=== PATIENT | male | born 1965 | race Caucasian/White ===

== ENCOUNTER 2020-09-09 10:32 | Emergency (ER) | payer OTHER, SELFPAY ==
[2020-09-09 10:51] VITALS: BP 109/38; PULSE 87; RESP 18; TEMP 35.9; O2SAT 95; BMI 51.7
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
[2020-09-09] MEDS: Amoxicillin 500 MG CAPSULE PO (11:10)
== END 2020-09-09 11:14 | disposition home or self-care (01) ==
PROVIDERS: Emergency Provider Emergency Medicine; PCP Internal Medicine Endocrinology, Diabetes & Metabolism
DX: K12.2 Cellulitis and abscess of mouth (principal); K02.9 Dental caries, unspecified
CPT/HCPCS: 99283

== ENCOUNTER 2020-10-18 16:19 | Emergency (ER) | payer OTHER, SELFPAY ==
[2020-10-18 16:27] VITALS: BP 147/71; BP 168/90; PULSE 66; PULSE 72; RESP 20; TEMP 36.9; O2SAT 96; O2SAT 98; BMI 54.8
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
[2020-10-18 16:42] LABS: Glucose, Whole Blood 227 mg/dL (60-115)
[2020-10-18] MEDS: 0.9 % Sodium Chloride 1,000 ML 999 ML IVCONT ×2 (16:54→18:00)
[2020-10-18] MEDS: Insulin Regular, Human 100 UNIT/ML 3 ML VIAL SUBCUT (16:54)
[2020-10-18 17:05] LABS: MANUAL DIFF FLAG NO
[2020-10-18 17:06] LABS: Basophils Absolute Auto 0.1 X10*3/uL (0.0-0.2); Basophils Percent Auto 0.6 % (0-2); Eosinophils Absolute Auto 0.2 X10*3/uL (0.0-0.4); Hematocrit 37.4 % (42-52); Hemoglobin 12.6 g/dl (14.0-18.0); Imm Gran Abs Auto 0.05 X10*3/uL (0.00-0.03); Imm Gran Pct Auto 0.5 % (0.0-0.4); Lymphocytes Percent Auto 18.9 % (20-40); Mean Corpuscular HGB Conc 33.7 g/dl (31.0-36.0); Mean Corpuscular Hemoglobin 29.4 pg (27.0-33.0); Mean Corpuscular Volume 87.4 fL (80-98); Mean Platelet Volume 9.3 fL (9.4-12.4); Monocytes Absolute Auto 0.7 X10*3/uL (0.1-1.2); Monocytes Percent Auto 6.9 % (2-11); Neutrophils Absolute Auto 7.5 X10*3/uL (2.0-8.3); Neutrophils Percent Auto 71.1 % (45-73); Platelet Count 294 X10*3/uL (160-400); Red Blood Count 4.28 X10*6/uL (4.60-5.80); Red Cell Distribution Width 12.9 % (11.0-16.0); White Blood Count 10.5 X10*3/uL (4.8-10.8)
[2020-10-18 17:31] LABS: Anion Gap 14 (12-20); Blood Urea Nitrogen 14 mg/dL (9-16); Calcium 9.2 mg/dL (8.4-10.2); Carbon Dioxide 29 mmol/L (22-29); Chloride 98 mmol/L (96-108); Creatinine Clr Calc Pharmacy 173.7; Estimated Glomerular Filt Rate > 60; Glucose Random 227 mg/dL (60-115); Potassium 4.5 mmol/l (3.3-5.1); Sodium 136 mmol/L (135-145)
[2020-10-18 17:35] LABS: Troponin-I High Sensitivity < 3.5 ng/L (<3.5-35.0)
[2020-10-18 18:00] VITALS: BP 123/81; PULSE 83; RESP 16; TEMP 36.7; O2SAT 99
--- NOTE | 2020-10-18 19:12 | PC.NURSE ---
PT REPORTS FEELING SIGNIFICANTLY BETTER. GIVEN ICE PACKS FOR COOLING AND COMFORT. DENIES CP, SOB. PT A&OX3, AMBULATING INDEPENDENTLY WITH NO ISSUE TO RESTROOM. STATES HAVING MISPLACED HIS PHONE WITH EMS, [facility] CONTACTED, EXPECTING CALL BACK FROM THEM.
[2020-10-18 19:38] LABS: Glucose, Whole Blood 241 mg/dL (60-115)
== END 2020-10-18 19:35 | disposition home or self-care (01) ==
PROVIDERS: Emergency Provider Emergency Medicine
DX: E11.65 Type 2 diabetes mellitus with hyperglycemia (principal); R42 Dizziness and giddiness; F41.0 Panic disorder [episodic paroxysmal anxiety]; Z79.899 Other long term (current) drug therapy
CPT/HCPCS: 36415; 80048; 82947; 84484; 85025; 96360; 99284

== ENCOUNTER 2021-10-11 09:53 | Emergency (ER) | payer OTHER, SELFPAY ==
[2021-10-11 09:56] VITALS: BP 146/69; PULSE 89; RESP 18; TEMP 37.5; O2SAT 96; BMI 57.6
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
== END 2021-10-11 10:52 | disposition home or self-care (01) ==
PROVIDERS: Emergency Provider Emergency Medicine; PCP Nurse Practitioner Family
DX: B37.42 Candidal balanitis (principal); Z79.899 Other long term (current) drug therapy; Z79.82 Long term (current) use of aspirin
CPT/HCPCS: 99283

== ENCOUNTER 2022-11-20 20:45 | Inpatient (IN) | payer OTHER, SELFPAY ==
--- NOTE | ~2022-11-20 | XR_ITS ---
EXAMINATION: XR knee RT 2V, XR knee LT 2V CLINICAL INFORMATION: Reason for Exam fall -knee pain COMPARISON: None available at the time of this dictation. TECHNIQUE: Frontal lateral view right and left knee. FINDINGS: BONES: No fracture or dislocation is present. JOINTS: Narrowing of joint spaces and developed osteophytes from the edges of articular surfaces suggest degenerative osteoarthritis. 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 No significant knee joint effusion.
--- NOTE | ~2022-11-20 | XR_ITS ---
EXAMINATION: XR knee RT 2V, XR knee LT 2V CLINICAL INFORMATION: Reason for Exam fall -knee pain COMPARISON: None available at the time of this dictation. TECHNIQUE: Frontal lateral view right and left knee. FINDINGS: BONES: No fracture or dislocation is present. JOINTS: Narrowing of joint spaces and developed osteophytes from the edges of articular surfaces suggest degenerative osteoarthritis. SOFT TISSUE: Normal XR/XR knee RT 2V IMPRESSION: 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 No significant knee joint effusion.
--- NOTE | ~2022-11-20 | XR_ITS ---
EXAMINATION: XR SKULL CLINICAL INFORMATION: fall /unable to do ct head COMPARISON: None TECHNIQUE: 2 views of the skull were obtained. FINDINGS: No acute fractures are identified. Paranasal sinuses appear clear. Orbits appear intact. Calvarium appears intact. XR/XR skull <4V IMPRESSION: No acute fractures are identified.
[2022-11-20 20:52] VITALS: BMI 46.6
[2022-11-20 20:57] VITALS: BP 121/80; PULSE 117; RESP 23; TEMP 531.8; TEMP 989.3; O2SAT 96
[2022-11-20 21:04] VITALS: BP 160/81; PULSE 87; RESP 22; TEMP 37.2; O2SAT 96
[2022-11-20 21:23] VITALS: BP 143/51; PULSE 87; RESP 15; TEMP 36.5; O2SAT 97
--- NOTE | 2022-11-20 21:58 | ED_ITS ---
HPI - Abdominal Pain General Chief Complaint: Abdominal Pain Stated Complaint: Abd Pain Time Seen by Provider: 11/20/22 21:53 Source: patient Mode of arrival: ambulatory Limitations: no limitations History of Present Illness HPI narrative: Patient 460 lb obese patient with history of sleep apnea hypertension diabetes been having right-sided abdominal pain with chills no fever no nausea no vomiting patient was seen at [facility] yesterday CT scan of abdomen done and labs were done and discharged on some antibiotics patient unable to fill the antibiotics comes here for further management Related Data Home Medications Medication Instructions Recorded Confirmed acetaminophen 650 mg tablet 650 mg PO Q4H PRN Pain 11/21/22 11/21/22 bupropion HCl 150 mg tablet,12 hr 150 mg PO BID 11/21/22 11/21/22 sustained-release (Wellbutrin SR) cyanocobalamin (vitamin B-12) 250 200 mcg PO DAILY 11/21/22 11/21/22 mcg tablet dicyclomine 20 mg tablet 20 mg PO BID 11/21/22 11/21/22 fluoxetine 60 mg tablet 60 mg PO DAILY 11/21/22 11/21/22 gabapentin 300 mg capsule 300 mg PO BID 11/21/22 11/21/22 insulin aspart (niacinamide) 10 unit subcut QAM 11/21/22 11/21/22 (U-100) 100 unit/mL subcutaneous solution insulin aspart (niacinamide) 25 unit subcut DAILY@1700 11/21/22 11/21/22 (U-100) 100 unit/mL subcutaneous solution insulin glargine 100 unit/mL 45 unit subcut DAILY 11/21/22 11/21/22 subcutaneous cartridge loratadine 10 mg tablet 10 mg PO DAILY 11/21/22 11/21/22 losartan 50 mg tablet 50 mg PO DAILY 11/21/22 11/21/22 metoprolol tartrate 50 mg tablet 50 mg PO BID 11/21/22 11/21/22 multivitamin with minerals 1 tab PO DAILY 11/21/22 11/21/22 omega-3 fatty acids 500 mg capsule 1,000 mg PO DAILY 11/21/22 11/21/22 omeprazole 40 mg capsule,delayed 40 mg PO DAILY 11/21/22 11/21/22 release oxybutynin chloride 5 mg tablet 15 mg PO BID 11/21/22 11/21/22 oxycodone-acetaminophen 5 mg-325 2 tab PO BID PRN Pain 11/21/22 11/21/22 mg tablet psyllium 2 tsp PO BID 11/21/22 11/21/22 quetiapine 25 mg tablet 12.5 mg PO BEDTIME 11/21/22 11/21/22 quetiapine 25 mg tablet 25 mg PO QAM 11/21/22 11/21/22 rosuvastatin 40 mg tablet 40 mg PO DAILY 11/21/22 11/21/22 sildenafil 100 mg tablet 100 mg PO DAILY PRN Sexual Activity 11/21/22 11/21/22 terazosin 2 mg capsule 4 mg PO DAILY 11/21/22 11/21/22 Allergies Allergy/AdvReac Type Severity Reaction Status Date / Time strawberry [STRAWBERRY] Allergy Severe ANAPHYLAXIS Verified 09/09/20 10:53 aspirin [ASPIRIN] Allergy Unknown SIBLINGS Verified 09/09/20 10:53 WITH BLOOD DISORDER atorvastatin [ATORVASTATIN] Allergy Unknown RASH, Verified 09/09/20 10:53 SWELLING fenofibrate [FENOFIBRATE] Allergy Unknown RASH, Verified 09/09/20 10:53 SWELLING lisinopril [LISINOPRIL] Allergy Unknown RASH,SWELLI Verified 09/09/20 10:53 NG niacin Allergy Unknown RASH,SWELLI Verified 09/09/20 10:53 [From NIASPAN NG EXTENDED-RELEASE] [place] (Diagnostic) Allergy Unknown Unknown Uncoded 09/09/20 10:53 Review of Systems Review of Systems Yes all other systems are reviewed and are negative PMFSH Past Medical History Medical History Diabetes [place] War syndrome Prostate cancer PTSD (post-traumatic stress disorder) Social History Social History Advance Directives: No Advance Directives Information Provided: Yes Physical Exam ED Vital Signs: Vital Signs - 24 hr 11/20/22 20:57 11/20/22 21:04 11/20/22 21:23 Temperature 989.3 F H 98.9 F 97.7 F Pulse Rate 117 H 87 87 Respiratory Rate 23 H 22 H 15 Blood Pressure 121/80 160/81 H 143/51 H Pulse Oximetry 96 96 97 Oxygen Delivery Method Room Air Nasal Cannula Nasal Cannula Oxygen Flow Rate 3 2 11/21/22 01:53 Temperature 98.2 F Pulse Rate 93 Respiratory Rate 18 Blood Pressure 166/66 H Pulse Oximetry 95 Oxygen Delivery Method Room Air Oxygen Flow Rate BMI result Body Mass Index 46.6 Appearance: Alert. Oriented X3. No acute distress. Morbidly obese Eyes: PERRLA, No Nystagmus ENT: Pharynx normal. Oral Mucosa moist Neck: Normal inspection. Neck supple. CVS: Normal heart rate and rhythm. Pulses normal. Respiratory: No respiratory distress. Equal air entry bilateral, no wheezing/r ales/rhonchi Abdomen: Soft mild discomfort right upper abdomen Bowel sounds are present, no mass palpable, no CVA tenderness Skin: Skin warm and dry. Small 2 x 2 cm lesion left gluteal area healing wound? Staph Extremities: No lower extremity edema. No calf tenderness Neuro: Oriented X 3. No motor deficit. Medical Decision Making Medical Decision Making [facility] Narrative: Patient morbidly obese unable to take care of himself requesting placement/extra help at home. Patient's son unable to take care of will get case management involvement Lab Data [facility] Lab Attestation statement: I reviewed the patient's lab results. 11/20/22 23:18 11/20/22 23:18 Labs: Lab Results 11/20/22 11/20/22 11/20/22 Range/Units 23:18 23:18 23:18 WBC 14.4 H (4.8-10.8) X10*3/uL RBC 3.86 L (4.60-5.80) X10*6/uL Hgb 11.3 L (14.0-18.0) g/dl Hct 32.9 L (42.0-52.0) % MCV 85.2 (80.0-98.0) fL MCH 29.3 (27.0-33.0) pg MCHC 34.3 (31.0-36.0) g/dl RDW 13.3 (11.0-16.0) % Plt Count 236 (160-400) X10*3/uL MPV 9.4 (9.4-12.4) fL Immature Gran % (Auto) 0.8 H (0.0-0.4) % Neut % (Auto) 86.3 H (45-73) % Lymph % (Auto) 4.7 L (20-40) % [place] % (Auto) 8.0 (2-11) % Eos % (Auto) 0.1 (0-4) % Baso % (Auto) 0.1 (0-2) % Lymph # (Auto) 0.7 L (1.2-4.9) X10*3/uL [place] # (Auto) 1.2 (0.1-1.2) X10*3/uL Eos # (Auto) 0.0 (0.0-0.4) X10*3/uL Baso # (Auto) 0.0 (0.0-0.2) X10*3/uL Abs Immat Gran (auto) 0.12 H (0.00-0.03) X10*3/uL Absolute Neuts (auto) 12.4 H (2.0-8.3) x10*3/uL Absolute Nucleated RBC 0.000 (0.0-0.012) X10*3/uL Nucleated RBC % (auto) 0.0 (0.0-0.2) /100WBC Sodium Cancelled Potassium Cancelled Chloride Cancelled Carbon Dioxide Cancelled Anion Gap Cancelled BUN Cancelled Creatinine Cancelled Estim Creat Clear Calc Cancelled Estimated GFR Cancelled Random Glucose Cancelled Lactic Acid 1.0 (0.5-2.0) mmol/L Calcium Cancelled Total Bilirubin Cancelled AST Cancelled ALT Cancelled Alkaline Phosphatase Cancelled Total Protein Cancelled Albumin Cancelled Lipase Cancelled Urine Color Urine Appearance Urine pH (5.0-9.0) Ur Specific [place] (1.005-1.025) Urine Protein (Neg-Trace) mg/dL Urine Glucose (UA) (Negative) mg/dL Urine Ketones (Negative) mg/dL Urine Blood (Negative) Urine Nitrite (Negative) Ur Leukocyte Esterase (Negative) Urine RBC (0-2) /HPF Urine WBC (0-5) /HPF Ur Squamous Epith Cells (0-2) /HPF Urine Bacteria (None Seen) Hyaline Casts (0-2) /LPF COVID-19 (NEFTALI) (Negative) COVID-19 Clin Com 11/20/22 11/21/22 Range/Units 23:18 01:50 WBC (4.8-10.8) X10*3/uL RBC (4.60-5.80) X10*6/uL Hgb (14.0-18.0) g/dl Hct (42.0-52.0) % MCV (80.0-98.0) fL MCH (27.0-33.0) pg MCHC (31.0-36.0) g/dl RDW (11.0-16.0) % Plt Count (160-400) X10*3/uL MPV (9.4-12.4) fL Immature Gran % (Auto) (0.0-0.4) % Neut % (Auto) (45-73) % Lymph % (Auto) (20-40) % [place] % (Auto) (2-11) % Eos % (Auto) (0-4) % Baso % (Auto) (0-2) % Lymph # (Auto) (1.2-4.9) X10*3/uL [place] # (Auto) (0.1-1.2) X10*3/uL Eos # (Auto) (0.0-0.4) X10*3/uL Baso # (Auto) (0.0-0.2) X10*3/uL Abs Immat Gran (auto) (0.00-0.03) X10*3/uL Absolute Neuts (auto) (2.0-8.3) x10*3/uL Absolute Nucleated RBC (0.0-0.012) X10*3/uL Nucleated RBC % (auto) (0.0-0.2) /100WBC Sodium Potassium Chloride Carbon Dioxide Anion Gap BUN Creatinine Estim Creat Clear Calc Estimated GFR Random Glucose Lactic Acid (0.5-2.0) mmol/L Calcium Total Bilirubin AST ALT Alkaline Phosphatase Total Protein Albumin Lipase Urine Color Yellow Urine Appearance Clear Urine pH 6.5 (5.0-9.0) Ur Specific [place] >= 1.030 H (1.005-1.025) Urine Protein 300 (3+) H (Neg-Trace) mg/dL Urine Glucose (UA) >=1000 H (Negative) mg/dL Urine Ketones 80 (Negative) mg/dL Urine Blood Moderate (2+) H (Negative) Urine Nitrite Negative (Negative) Ur Leukocyte Esterase Negative (Negative) Urine RBC 0-2 (0-2) /HPF Urine WBC 0-5 (0-5) /HPF Ur Squamous Epith Cells 0-2 (0-2) /HPF Urine Bacteria None Seen (None Seen) Hyaline Casts 0-2 (0-2) /LPF COVID-19 (NEFTALI) Negative (Negative) COVID-19 Clin Com See Note External Record Review External record reviewed: Outside ED record Patient discharged from [facility] at 04:35 today was seen for the back pain and right- sided flank pain CT scan of abdomen was negative for acute pathology, normal chemistry blood glucose of 393 WBC count 13.8 hemoglobin 10.9 platelet count 245 K urine was negative patient discharged on cephalexin for possible cellulitis of the skin Medications Administered Discontinued Medications Generic Name Dose Route Start Last Admin Trade Name Freq PRN Reason Stop Dose Admin Cephalexin HCl 500 mg 11/20/22 23:18 11/21/22 00:10 Cephalexin 500 Mg Capsule PO 11/20/22 23:19 500 mg ONCE ONE Administration Doxycycline Monohydrate 100 mg 11/20/22 23:18 11/21/22 00:10 Doxycycline Monohydrate 100 Mg Capsule PO 11/20/22 23:19 100 mg ONCE ONE Administration Oxycodone HCl 10 mg 11/20/22 22:38 11/21/22 00:09 Oxycodone Hcl Immed Release 5 Mg Tablet PO 11/20/22 22:39 10 mg ONCE ONE Administration Oxycodone HCl 10 mg 11/21/22 03:39 11/21/22 03:47 Oxycodone Hcl Immed Release 5 Mg Tablet PO 11/21/22 03:40 10 mg ONCE ONE Administration Discharge Plan Discharge Clinical Impression: Infected lesion of skin, Morbidly obese Patient Disposition: Still a Patient Prescriptions: No Action quetiapine 25 mg Tablet 25 mg PO QAM quetiapine 25 mg Tablet 12.5 mg PO BEDTIME bupropion HCl [Wellbutrin SR] 150 mg Tablet Sustained-Release 12 Hr 150 mg PO BID acetaminophen 650 mg Tablet 650 mg PO Q4H PRN (Reason: Pain) oxycodone-acetaminophen 5-325 mg Tablet 2 tab PO BID PRN (Reason: Pain) dicyclomine 20 mg Tablet 20 mg PO BID metoprolol tartrate 50 mg Tablet 50 mg PO BID gabapentin 300 mg Capsule 300 mg PO BID loratadine 10 mg Tablet 10 mg PO DAILY fluoxetine 60 mg Tablet 60 mg PO DAILY losartan 50 mg Tablet 50 mg PO DAILY cyanocobalamin (vitamin B-12) 250 mcg Tablet 200 mcg PO DAILY omeprazole 40 mg Capsule,Delayed Release(Dr/Ec) 40 mg PO DAILY sildenafil 100 mg Tablet 100 mg PO DAILY PRN (Reason: Sexual Activity) Rx Instructions: administer 30 minutes to 4 hours before activity psyllium Powder 2 tsp PO BID Rx Instructions: mix into at least 4 oz water or juice before administering terazosin 2 mg Capsule 4 mg PO DAILY multivitamin with minerals Tablet 1 tab PO DAILY oxybutynin chloride 5 mg Tablet 15 mg PO BID rosuvastatin 40 mg Tablet 40 mg PO DAILY insulin glargine 100 unit/mL Cartridge 45 unit SUBCUT DAILY Fish Oil 500 mg Capsule 1,000 mg PO DAILY insulin aspart (niacinamide) 100 unit/mL Solution 25 unit SUBCUT DAILY@1700 insulin aspart (niacinamide) 100 unit/mL Solution 10 unit SUBCUT QAM
[2022-11-20 23:28] LABS: MANUAL DIFF FLAG NO
[2022-11-20 23:29] LABS: Basophils Percent Auto 0.1 % (0-2); Eosinophils Percent Auto 0.1 % (0-4); Hematocrit 32.9 % (42.0-52.0); Hemoglobin 11.3 g/dl (14.0-18.0); Imm Gran Abs Auto 0.12 X10*3/uL (0.00-0.03); Imm Gran Pct Auto 0.8 % (0.0-0.4); Lymphocytes Absolute Auto 0.7 X10*3/uL (1.2-4.9); Lymphocytes Percent Auto 4.7 % (20-40); Mean Corpuscular HGB Conc 34.3 g/dl (31.0-36.0); Mean Corpuscular Hemoglobin 29.3 pg (27.0-33.0); Mean Corpuscular Volume 85.2 fL (80.0-98.0); Mean Platelet Volume 9.4 fL (9.4-12.4); Monocytes Absolute Auto 1.2 X10*3/uL (0.1-1.2); Neutrophils Absolute Auto 12.4 x10*3/uL (2.0-8.3); Neutrophils Percent Auto 86.3 % (45-73); Platelet Count 236 X10*3/uL (160-400); Red Blood Count 3.86 X10*6/uL (4.60-5.80); Red Cell Distribution Width 13.3 % (11.0-16.0); White Blood Count 14.4 X10*3/uL (4.8-10.8)
[2022-11-20 23:30] LABS: Appearance Urine Clear; Color Urine Yellow; Glucose Urine UA >=1000 mg/dL (Negative); Leukocyte Esterase Urine Negative (Negative); Nitrite Urine Negative (Negative); PH 6.5 (5.0-9.0); Specific Gravity - Urine >= 1.030 (1.005-1.025); UMIC TRIGGER UACC YES; Urine Blood Moderate (2+) (Negative); Urine Ketones 80 mg/dL (Negative); Urine Protein 300 (3+) mg/dL (Neg-Trace)
[2022-11-20 23:40] LABS: Bacteria Urine None Seen (None Seen); Hyaline Casts Urine 0-2 /LPF (0-2); RBC Urine 0-2 /HPF (0-2); Squamous Epithelial Cell Urine 0-2 /HPF (0-2); WBC Urine 0-5 /HPF (0-5)
[2022-11-21] VITALS (10 sets, daily range): BP systolic 136–192; BP diastolic 54–86; PULSE 75–93; RESP 14–26; TEMP 36–36.9; O2SAT 95–98; BMI 68.0
[2022-11-21] MEDS: oxyCODONE HCl Immed Release 5 MG TABLET 10 MG PO ×3 (00:09→09:45)
[2022-11-21] MEDS: Doxycycline Monohydrate 100 MG CAPSULE PO ×2 (00:10→08:33)
[2022-11-21] MEDS: cephALEXin 500 MG CAPSULE PO ×2 (00:10→08:34)
[2022-11-21 02:18] LABS: COVID-19 Test Negative (Negative); IDNOW Serial# BCCEAD1C
[2022-11-21] MEDS: Acetaminophen 325 MG TABLET 650 MG PO (06:37)
[2022-11-21 07:43] LABS: Glucose, Whole Blood 332 mg/dL (60-115)
[2022-11-21] MEDS: Insulin Glargine,Hum.rec.anlog 100 UNIT/ML 10 ML VIAL 45 UNIT SUBCUT ×2 (08:30→22:15)
[2022-11-21] MEDS: Insulin Lispro 100 UNIT/ML 3 ML VIAL 10 UNIT SUBCUT (08:32)
[2022-11-21] MEDS: Metoprolol Tartrate 50 MG TABLET PO ×2 (08:33→22:14)
[2022-11-21] MEDS: Multivitamin TABLET 1 TAB PO (08:33)
[2022-11-21] MEDS: Loratadine 10 MG TABLET PO (08:33)
[2022-11-21] MEDS: Gabapentin 300 MG CAPSULE PO ×2 (08:34→22:13)
[2022-11-21] MEDS: QUEtiapine Fumarate 25 MG TABLET 12.5 MG PO ×2 (08:34→22:14)
[2022-11-21] MEDS: Losartan Potassium 50 MG TABLET PO (08:35)
[2022-11-21] MEDS: Doxazosin Mesylate 2 MG TABLET 4 MG PO (08:35)
[2022-11-21] MEDS: Dicyclomine HCl 10 MG CAPSULE 20 MG PO ×2 (08:35→22:14)
[2022-11-21] MEDS: QUEtiapine Fumarate 25 MG TABLET PO (08:36)
[2022-11-21] MEDS: Omeprazole 40 MG CAPSULE.DR PO (08:36)
[2022-11-21] MEDS: Cyanocobalamin (Vitamin B-12) 100 MCG TABLET 200 MCG PO (08:36)
[2022-11-21] MEDS: FLUoxetine HCl 20 MG CAPSULE 60 MG PO (08:36)
[2022-11-21] MEDS: buPROPion HCl XL 300 MG TAB.ER.24H PO (08:37)
--- NOTE | 2022-11-21 08:53 | PC.NURSE ---
pt is a/o x 4 no sob/armand noted speaks in full sentences. lungs - diminished. heart sounds- regular. abd extremely obese/distended, soft and non-tender. bx + x 4 quads. no edema noted. pt aware of plan of care. physical therapy at bedside.
--- NOTE | 2022-11-21 09:49 | PC.NURSE ---
pt has 2 quarter size open areas to l side of buttocks. the upper wound appears to be healing. allevyn applied to the upper wound and xeroform and allevyn applied to the lower wound. md ames.
--- NOTE | 2022-11-21 09:49 | MHC.EDTECH ---
this pct and (elgin, pct) did a complete bed bath on this patient. PTs bed was stripped and new linen was placed,as pt was standing i applied two allevyn life patches on both wounds one on buttocks and one on lower back leg RN aware,pt was then transferred to recliner, call [place] was given, and patient was in good spirits. pt was told if he needed anything to please let us know.
[2022-11-21 12:04] LABS: Glucose, Whole Blood 265 mg/dL (60-115)
--- NOTE | 2022-11-21 12:06 | MHC.CM.ED ---
Addendum entered by Krystal Burnett 11/21/22 12:35: Received notification from Teresa GAVIN that patient will be admitted due to bacteremia. Original Note: Received case management consult overnight. Patient came to the ER due to abd pain. Work up essentially negative. Physical therapy eval completed. Short term rehab is recommended. Met with patient in regards to discharge planning. Patient lives with his son and [id number], ambulates with a walker and had no services prior to coming to the hospital. PCP verified. Patient states his son has a copy of his HCP. Patient recevied [facility] [employer]. [facility] provided to [facility]. Patient agreeable to referral being broadcasted to all facilities in the area that are contracted with the [facility]. Referral made via [facility]. Continue to monitor for d/c needs.
[2022-11-21 12:53] LABS: MANUAL DIFF FLAG NO
[2022-11-21 12:54] LABS: Basophils Percent Auto 0.1 % (0-2); Eosinophils Percent Auto 0.1 % (0-4); Hematocrit 31.2 % (42.0-52.0); Hemoglobin 10.5 g/dl (14.0-18.0); Imm Gran Abs Auto 0.12 X10*3/uL (0.00-0.03); Imm Gran Pct Auto 0.8 % (0.0-0.4); Lymphocytes Absolute Auto 0.7 X10*3/uL (1.2-4.9); Lymphocytes Percent Auto 4.7 % (20-40); Mean Corpuscular HGB Conc 33.7 g/dl (31.0-36.0); Mean Corpuscular Hemoglobin 29.1 pg (27.0-33.0); Mean Corpuscular Volume 86.4 fL (80.0-98.0); Mean Platelet Volume 9.3 fL (9.4-12.4); Monocytes Absolute Auto 1.1 X10*3/uL (0.1-1.2); Monocytes Percent Auto 7.2 % (2-11); Neutrophils Absolute Auto 13.1 x10*3/uL (2.0-8.3); Neutrophils Percent Auto 87.1 % (45-73); Platelet Count 246 X10*3/uL (160-400); Red Blood Count 3.61 X10*6/uL (4.60-5.80); Red Cell Distribution Width 13.3 % (11.0-16.0)
[2022-11-21 13:08] LABS: Lactic Acid 1.1 mmol/L (0.5-2.0)
[2022-11-21 13:12] LABS: Alanine Aminotransferase 25 U/L (0-40); Albumin Level 3.6 g/dL (3.5-5.0); Alkaline Phosphatase 94 U/L (39-117); Anion Gap 18 (12-20); Aspartate Amino Transferase 24 U/L (5-37); Bilirubin Direct < 0.2 mg/dL (0.0-0.5); Bilirubin Total 0.4 mg/dL (0.0-1.0); Blood Urea Nitrogen 16 mg/dL (9-16); Calcium 8.3 mg/dL (8.4-10.2); Carbon Dioxide 19 mmol/L (22-29); Chloride 97 mmol/L (96-108); Creatinine Clr Calc Pharmacy 157.5; Estimated Glomerular Filt Rate > 60; Glucose Random 329 mg/dL (60-115); Potassium 4.2 mmol/L (3.3-5.1); Sodium 130 mmol/L (135-145); Total Protein 6.2 g/dL (6.5-8.0)
--- NOTE | 2022-11-21 14:15 | PHA.MEDREC ---
Addendum entered by Ave Alas RPh 11/21/22 15:04: received [facility] dose are updated. patient report insulin aspart 1-4 units per blood glucose instead of what was on the list Original Note: Pharmacy Consult ? Medication Reconciliation Pharmacy has completed the medication reconciliation. Med rec compelted by RN overnight. Spoke with patient who confirm mediations he is taking the medication. Waiting for a [facility] from the [facility] to confirm medications are being picked and are accurate doses. Ave Alas, PharmD
[2022-11-21] MEDS: cefTRIAXone sodium 2 GM in 0.9 % Sodium Chloride 50 ML IV (14:40)
--- NOTE | 2022-11-21 15:30 | PM.IMHP ---
History of Present Illness Date of Service: 11/21/22 Attending physician on admission: Adilia Hardy Chief Complaint: upper buttock area wounds , ?uti, fall ,bacteremia HPI: 57-year-old male morbidly obese, hypertension, insulin-dependent , prostate cancer status post surgery in 2018 (? Laser prostatectomy) and radiation, urinary incontinence from 3-4 years, sleep apnea noncompliant with CPAP, ex-smoker quit in 2018:Patient came to the hospital because unable to take care at home, he said few days back he had some flank pain and urinary frequency for which she went to [facility]-he was discharged with the p.o. antibiotic for possible UTI, subsequently went home as per the patient he was excessively sleepy(was taking oxycodone also) and urinating on himself, in bathroom also fall x1 -son was nearby, patient said he did not hit his head and did not lose his consciousness. For above reasons EMS was called and patient was brought to the hospital. Patient says that he has urinary frequency but unclear since he is having urinary incontinence for 3-4 years. He said he had a left flank pain initially. On review also had some small upper buttock area ulcers/wounds. has some mild soarness of right knee area with pain. Patient was in the hospital since last night and plan was for placement but then his blood culture came back positive and subsequently requested admission for that. Currently patient denies any flank pain or any headache or blurry vision or new complaint of chest pain or shortness of breath or abdominal pain or fever or chills or nausea or vomitin or cough. Denies any weakness or numbness. Labs reviewed: WBC count is 15, has mild hyperglycemia, BMP seems fine except mild hyponatremia. In ED patient received vancomycin considering blood culture positive, also received ceftriaxone for possible question of UTI. Review of Systems Review of Systems: As above. [facility] Medical History (Updated 11/21/22 @ 16:28 by Adilia Hardy MD) Diabetes [place] War syndrome Prostate cancer PTSD (post-traumatic stress disorder) Pertinent family history: s/p cabg Surgical History (Updated 11/21/22 @ 16:04 by Adilia Hardy MD) History of back surgery History of prostate surgery Social History Alcohol intake: never Smoked in Last 30 Days: No Use of substances other than those prescribed or required for medical reasons: No Advance Directives: No Advance Directives Information Provided: Yes Meds Allergies Allergy/AdvReac Type Severity Reaction Status Date / Time strawberry [STRAWBERRY] Allergy Severe ANAPHYLAXIS Verified 09/09/20 10:53 aspirin [ASPIRIN] Allergy Unknown SIBLINGS Verified 09/09/20 10:53 WITH BLOOD DISORDER atorvastatin [ATORVASTATIN] Allergy Unknown RASH, Verified 09/09/20 10:53 SWELLING fenofibrate [FENOFIBRATE] Allergy Unknown RASH, Verified 09/09/20 10:53 SWELLING lisinopril [LISINOPRIL] Allergy Unknown RASH,SWELLI Verified 09/09/20 10:53 NG niacin Allergy Unknown RASH,SWELLI Verified 09/09/20 10:53 [From NIASPAN NG EXTENDED-RELEASE] Cade (Diagnostic) Allergy Unknown Unknown Uncoded 09/09/20 10:53 Active Medications: Current Medications Acetaminophen (Acetaminophen 325 Mg Tablet) 975 mg PO Q8H [facility] Bupropion HCl (Bupropion Hcl Xl 300 Mg Tab.Er.24h) 300 mg PO DAILY [facility] Last Admin: 11/21/22 08:37 Dose: 300 mg Cyanocobalamin (Cyanocobalamin (Vitamin B-12) 100 Mcg Tablet) 200 mcg PO DAILY [facility] Last Admin: 11/21/22 08:36 Dose: 200 mcg Cyanocobalamin (Cyanocobalamin (Vitamin B-12) 1,000 Mcg Tablet) 2,000 mcg PO DAILY [facility] Cyclobenzaprine HCl (Cyclobenzaprine Hcl 10 Mg Tablet) 10 mg PO DAILY PRN PRN Reason: Muscle Spasm Dicyclomine HCl (Dicyclomine Hcl 10 Mg Capsule) 20 mg PO BID [facility] Last Admin: 11/21/22 08:35 Dose: 20 mg Doxazosin Mesylate (Doxazosin Mesylate 2 Mg Tablet) 4 mg PO DAILY [facility] Last Admin: 11/21/22 08:35 Dose: 4 mg Enoxaparin Sodium (Enoxaparin Sodium 40 Mg/0.4 Ml Syringe) 40 mg SUBCUT Q24H [facility] Fluoxetine HCl (Fluoxetine Hcl 20 Mg Capsule) 60 mg PO DAILY [facility] Last Admin: 11/21/22 08:36 Dose: 60 mg Gabapentin (Gabapentin 300 Mg Capsule) 300 mg PO BID [facility] Last Admin: 11/21/22 08:34 Dose: 300 mg Vancomycin HCl (Vancomycin/Ns) 2,000 mg in 520 mls @ 260 mls/hr IV ONCE ONE Stop: 11/21/22 16:29 Insulin Glargine (Insulin Glargine,Hum.Rec.Anlog 100 Unit/Ml 10 Ml Vial) 45 unit SUBCUT DAILY [facility] Last Admin: 11/21/22 08:30 Dose: 45 unit Insulin Human Lispro (Insulin Lispro 100 Unit/Ml 3 Ml Vial) 10 unit SUBCUT DAILY [facility] Last Admin: 11/21/22 08:32 Dose: 10 unit Insulin Human Lispro (Insulin Lispro 100 Unit/Ml 3 Ml Vial) 25 unit SUBCUT DAILY@1700 [facility] Loratadine (Loratadine 10 Mg Tablet) 10 mg PO DAILY [facility] Last Admin: 11/21/22 08:33 Dose: 10 mg Losartan Potassium (Losartan Potassium 50 Mg Tablet) 50 mg PO DAILY [facility]; Protocol Last Admin: 11/21/22 08:35 Dose: 50 mg Metoprolol Tartrate (Metoprolol Tartrate 50 Mg Tablet) 50 mg PO BID [facility]; Protocol Last Admin: 11/21/22 08:33 Dose: 50 mg Multivitamins/Vitamin C (Multivitamin Tablet) 1 tab PO DAILY [facility] Last Admin: 11/21/22 08:33 Dose: 1 tab Non-Formulary Medication ([place]-3 Fatty Acids) 1,000 mg PO DAILY [facility] Non-Formulary Medication (Oxybutynin Chloride) 15 mg PO BID [facility] Non-Formulary Medication (Rosuvastatin) 40 mg PO DAILY [facility] Non-Formulary Medication (Meloxicam) 15 mg PO DAILY [facility] Non-Formulary Medication (Sildenafil) 100 mg PO DAILY PRN PRN Reason: Sexual Activity Omeprazole (Omeprazole 40 Mg Capsule.Dr) 40 mg PO DAILY [facility] Last Admin: 11/21/22 08:36 Dose: 40 mg Oxybutynin Chloride (Oxybutynin Chloride Er 5 Mg Tab.Er.24) 15 mg PO DAILY [facility] Pharmacy Consult (Consult Rx Vancomycin Dosing) 1 each MISCELLANE DAILY PRN PRN Reason: Consult order Psyllium Hydrophilic Mucilloid (Psyllium Seed 3.4 Gm Powd.Pack) 3.4 gm PO BID [facility] Last Admin: 11/21/22 09:46 Dose: 3.4 gm Quetiapine Fumarate (Quetiapine Fumarate 25 Mg Tablet) 12.5 mg PO BEDTIME [facility] Last Admin: 11/21/22 08:34 Dose: 12.5 mg Quetiapine Fumarate (Quetiapine Fumarate 25 Mg Tablet) 25 mg PO DAILY [facility] Last Admin: 11/21/22 08:36 Dose: 25 mg Sodium Chloride (0.9 % Sodium Chloride Flush 3 Ml Syringe) 3 ml IVFLUSH QSHIFT [facility] Tamsulosin HCl (Tamsulosin Hcl 0.4 Mg Capsule) 0.8 mg PO BEDTIME [facility] Home Medications Medication Instructions Recorded Confirmed Last Taken Type acetaminophen 650 mg tablet 650 mg PO Q4H PRN Pain 11/21/22 11/21/22 Unknown History bupropion HCl 150 mg tablet,12 hr 150 mg PO BID 11/21/22 11/21/22 Unknown History sustained-release (Wellbutrin SR) cyanocobalamin (vitamin B-12) 500 2,000 mcg PO DAILY 11/21/22 11/21/22 Unknown History mcg tablet cyclobenzaprine 10 mg tablet 10 mg PO DAILY PRN Muscle Spasm 11/21/22 11/21/22 Unknown History dicyclomine 20 mg tablet 20 mg PO BID 11/21/22 11/21/22 Unknown History fluoxetine 60 mg tablet 60 mg PO DAILY 11/21/22 11/21/22 Unknown History gabapentin 300 mg capsule 300 mg PO BID 11/21/22 11/21/22 Unknown History insulin aspart (niacinamide) 1 - 4 sliding scale dose subcut 11/21/22 11/21/22 Unknown History (U-100) 100 unit/mL subcutaneous TIDAC solution insulin glargine 100 unit/mL 45 unit subcut DAILY 11/21/22 11/21/22 Unknown History subcutaneous cartridge loratadine 10 mg tablet 10 mg PO DAILY 11/21/22 11/21/22 Unknown History losartan 50 mg tablet 50 mg PO DAILY 11/21/22 11/21/22 Unknown History meloxicam 15 mg tablet 15 mg PO DAILY 11/21/22 11/21/22 Unknown History metoprolol tartrate 50 mg tablet 50 mg PO BID 11/21/22 11/21/22 Unknown History multivitamin with minerals 1 tab PO DAILY 11/21/22 11/21/22 Unknown History omega-3 fatty acids 500 mg capsule 1,000 mg PO DAILY 11/21/22 11/21/22 Unknown History omeprazole 40 mg capsule,delayed 40 mg PO DAILY 11/21/22 11/21/22 Unknown History release oxybutynin chloride 15 mg 15 mg PO DAILY 11/21/22 11/21/22 Unknown History tablet,extended release 24 hr oxycodone-acetaminophen 5 mg-325 2 tab PO BID PRN Pain 11/21/22 11/21/22 Unknown History mg tablet psyllium 2 tsp PO BID 11/21/22 11/21/22 Unknown History quetiapine 25 mg tablet 12.5 mg PO BEDTIME 11/21/22 11/21/22 Unknown History quetiapine 25 mg tablet 25 mg PO QAM 11/21/22 11/21/22 Unknown History rosuvastatin 40 mg tablet 40 mg PO DAILY 11/21/22 11/21/22 Unknown History sildenafil 100 mg tablet 100 mg PO DAILY PRN Sexual Activity 11/21/22 11/21/22 Unknown History tamsulosin 0.4 mg capsule 0.8 mg PO BEDTIME 11/21/22 11/21/22 Unknown History terazosin 2 mg capsule 4 mg PO DAILY 11/21/22 11/21/22 Unknown History Physical Exam Vital Signs and Narrative: Vital Signs: Last Vital Signs Temp 97.6 F 11/21/22 14:47 Pulse 82 11/21/22 14:47 Resp 14 11/21/22 14:47 BP 142/54 H 11/21/22 14:47 Pulse Ox 95 11/21/22 14:47 O2 Del Method 11/21/22 14:47 O2 Flow Rate 2 11/20/22 21:23 BMI result Body Mass Index 46.6 Appearance: Alert.? Oriented X3.? not in distress.?morbid obese. Eyes: Pupils equal, round and reactive to light.? Sclera nonicteric.? ENT: Pharynx normal.? Moist mucous membranes. cvs: rrr, [id number] , no murmur res: clear to auscultation ,no rhonchii or wheezing abd: no rebound or guarding ,nt, bs present. skin: upper buttock area smallulcers?(especiially left side). ext pulses present , no cyanosis , right knee pain. neuro: axo3 , nonfocal. Results Labs 11/21/22 12:47 11/21/22 12:47 Labs: Laboratory Results - last 24 hr 11/20/22 11/20/22 11/20/22 23:18 23:18 23:18 MCV 85.2 MCH 29.3 MCHC 34.3 RDW 13.3 Plt Count 236 MPV 9.4 Immature Gran % (Auto) 0.8 H Neut % (Auto) 86.3 H Lymph % (Auto) 4.7 L [place] % (Auto) 8.0 Eos % (Auto) 0.1 Baso % (Auto) 0.1 Lymph # (Auto) 0.7 L [place] # (Auto) 1.2 Eos # (Auto) 0.0 Baso # (Auto) 0.0 Abs Immat Gran (auto) 0.12 H Absolute Neuts (auto) 12.4 H Absolute Nucleated RBC 0.000 Nucleated RBC % (auto) 0.0 Anion Gap Cancelled Estim Creat Clear Calc Cancelled Estimated GFR Cancelled POC Glucose Random Glucose Cancelled Lactic Acid 1.0 Calcium Cancelled Total Bilirubin Cancelled Direct Bilirubin AST Cancelled ALT Cancelled Alkaline Phosphatase Cancelled Total Protein Cancelled Albumin Cancelled Lipase Cancelled Urine Color Urine Appearance Urine pH Ur Specific [place] Urine Protein Urine Glucose (UA) Urine Ketones Urine Blood Urine Nitrite Ur Leukocyte Esterase Urine RBC Urine WBC Ur Squamous Epith Cells Urine Bacteria Hyaline Casts COVID-19 ([facility]I) COVID-19 Clin Com 11/20/22 11/21/22 11/21/22 23:18 01:50 07:36 MCV MCH MCHC RDW Plt Count MPV Immature Gran % (Auto) Neut % (Auto) Lymph % (Auto) [place] % (Auto) Eos % (Auto) Baso % (Auto) Lymph # (Auto) Noble # (Auto) Eos # (Auto) Baso # (Auto) Abs Immat Gran (auto) Absolute Neuts (auto) Absolute Nucleated RBC Nucleated RBC % (auto) Anion Gap Estim Creat Clear Calc Estimated GFR POC Glucose 332 H Random Glucose Lactic Acid Calcium Total Bilirubin Direct Bilirubin AST ALT Alkaline Phosphatase Total Protein Albumin Lipase Urine Color Yellow Urine Appearance Clear Urine pH 6.5 Ur Specific [place] >= 1.030 H Urine Protein 300 (3+) H Urine Glucose (UA) >=1000 H Urine Ketones 80 Urine Blood Moderate (2+) H Urine Nitrite Negative Ur Leukocyte Esterase Negative Urine RBC 0-2 Urine WBC 0-5 Ur Squamous Epith Cells 0-2 Urine Bacteria None Seen Hyaline Casts 0-2 COVID-19 ([facility]FTALI) Negative COVID-19 Clin Com See Note 11/21/22 11/21/22 11/21/22 12:00 12:47 12:47 MCV 86.4 MCH 29.1 MCHC 33.7 RDW 13.3 Plt Count 246 MPV 9.3 L Immature Gran % (Auto) 0.8 H Neut % (Auto) 87.1 H Lymph % (Auto) 4.7 L [place] % (Auto) 7.2 Eos % (Auto) 0.1 Baso % (Auto) 0.1 Lymph # (Auto) 0.7 L [place] # (Auto) 1.1 Eos # (Auto) 0.0 Baso # (Auto) 0.0 Abs Immat Gran (auto) 0.12 H Absolute Neuts (auto) 13.1 H Absolute Nucleated RBC 0.000 Nucleated RBC % (auto) 0.0 Anion Gap 18 Estim Creat Clear Calc 157.5 Estimated GFR > 60 POC Glucose 265 H Random Glucose 329 H Lactic Acid Calcium 8.3 L D Total Bilirubin 0.4 Direct Bilirubin < 0.2 AST 24 ALT 25 Alkaline Phosphatase 94 Total Protein 6.2 L Albumin 3.6 Lipase Urine Color Urine Appearance Urine pH Ur Specific [place] Urine Protein Urine Glucose (UA) Urine Ketones Urine Blood Urine Nitrite Ur Leukocyte Esterase Urine RBC Urine WBC Ur Squamous Epith Cells Urine Bacteria Hyaline Casts COVID-19 ([facility]FTALI) COVID-19 Clin Com 11/21/22 12:47 MCV MCH MCHC RDW Plt Count MPV Immature Gran % (Auto) Neut % (Auto) Lymph % (Auto) [place] % (Auto) Eos % (Auto) Baso % (Auto) Lymph # (Auto) Noble # (Auto) Eos # (Auto) Baso # (Auto) Abs Immat Gran (auto) Absolute Neuts (auto) Absolute Nucleated RBC Nucleated RBC % (auto) Anion Gap Estim Creat Clear Calc Estimated GFR POC Glucose Random Glucose Lactic Acid 1.1 Calcium Total Bilirubin Direct Bilirubin AST ALT Alkaline Phosphatase Total Protein Albumin Lipase Urine Color Urine Appearance Urine pH Ur Specific [place] Urine Protein Urine Glucose (UA) Urine Ketones Urine Blood Urine Nitrite Ur Leukocyte Esterase Urine RBC Urine WBC Ur Squamous Epith Cells Urine Bacteria Hyaline Casts COVID-19 ([facility]FT[facility]I) COVID-19 Clin Com Assessment and Plan (1) Hyperglycemia: Status: Acute (2) Hyponatremia: Status: Acute (3) Infected lesion of skin: Status: Acute (4) Morbidly obese: Status: Acute (5) Bacteremia: Status: Acute (6) Pressure ulcer, back, lower: Status: Acute (7) Toxic metabolic encephalopathy: Status: Acute (8) Fall: Status: Acute Plan 57-year-old male morbidly obese, hypertension, insulin-dependent , prostate cancer status post surgery in 2018 (? Laser prostatectomy) and radiation, urinary incontinence from 3-4 years, sleep apnea noncompliant with CPAP, ex-smoker:had fall , back ulcers ,bacteremia,?uti. sepsis: ? Due to skin and skin structure infection/small wound on the back In addition patient was to be having UTI recently-sent off with Keflex from [facility] which he did not yet started. Has leukocytosis of 15, no fever lactic acid normal, has bacteremia Gram-positive. No fever or tachycardia or tachypnea Sepsis exam completed Will continue vancomycin and ceftriaxone Vanco trough id eval. Diabetes with hyperglycemia: Diabetic diet Will check hemoglobin A1c Continue Lantus and we will adjust fingerstick with sliding scale. Hyponatremia: Possibly related to decreased p.o. intake and when corrected for hyperglycemia-sodium is around 133 range. Sleep apnea: Patient is noncompliant with CPAP. HLP: Continue statin. htn: Continue home regimen losartan, metoprolol. History of prostate cancer,? Urinary retention versus incontinence: Continue home Flomax, terazosin. Anxiety: Continue home anxiety regimen . Fall:mechnical, Patient sent a he did not hit his head, no loss of consciousness Has some right knee soreness, added x-ray of bilateral knees. also added head ct to complete workup. Toxic metabolic encephalopathy: Probably the symptoms patient's is dosing including excessive sleepiness, and urinating but all places: Probably related to excessive oxycodone use, decreased p.o. intake. does does not seem to be related to sepsis. Currently does not seem to be confused. ch pains : hold oxycodone , continue gabapentine ,flexril, added tylenol and lidociane patch. morbid obesity: Encouraged to lose weight. back skin ulcers : turn frequent,wound care ,oob, ambulate. Generalize weakness and functional decline family unable to take care: Added PT evaluation. DVT prophylaxis:: With subQ Lovenox In patient need: Sepsis/bacteremia need IV antibiotics-also blood culture pending in addition ,need dm with hyperglycemia monitoring and management, also possible need placement as above. Time Spent With Patient Time: Total time managing care of this patient today ____ minutes. Quality Stroke Does the patient have a stroke diagnosis?: No VTE Prior VTE?: No VTE Risk Level:: Medical - moderate - high VTE Device Contraindication: N/A - Device Ordered VTE Drug Contraindication: N/A - Med Ordered
[2022-11-21] MEDS: Acetaminophen 325 MG TABLET 975 MG PO ×2 (16:22→23:51)
[2022-11-21] MEDS: Enoxaparin Sodium 40 MG/0.4 ML SYRINGE SUBCUT (16:22)
[2022-11-21] MEDS: Lidocaine 4 % Patch ADH..PATCH 1 PATCH TRANSDERMA (16:23)
--- NOTE | 2022-11-21 16:30 | PHA.PROG ---
Admission Date/Time: November 21, 2022 15:24 Indication: Bacteremia Weight in k.418 kg Adjusted body weight in Kg: [place] body weight in Kg: Obesity Dosing Indication % IBW: Serum Creatinine - Last 168 Hours 11/20/22 11/21/22 23:18 12:47 Creatinine Cancelled 0.77 Estimated CrCl and GFR - Last 168 Hours 11/20/22 11/21/22 23:18 12:47 Estim Creat Clear Calc Cancelled 157.5 Estimated GFR Cancelled > 60 Vancomycin Loading Dose: 2000mg x 1 Current Vancomycin Dosing Regimen: 750mg Q8H Vancomycin Monitoring using AUC goal of 400 - 600 range with trough as surrogate marker: 500mg/L Date and Time for next Vancomycin Level to be drawn: 11/22/22 @1400 Pharmacist Comments on Vancomycin Plan: Using obesity model. Went with Q8H dosing to get an appropriately timed trough. Predicted Trough of 15.8mg/L. Will continue to monitor renal function/watch for dose dumping Vancomycin dosing will take advantage of [employer] as a clinical decision support tool that uses Bayesian modeling to calculate individual patient's pharmacokinetic parameters and forecast the patient's drug concentration time course with the target goal AUC 24 range of 400 - 600 mg/L/hr.
[2022-11-21 16:56] LABS: Estimated Average Glucose 212 mg/dL
[2022-11-21 17:53] LABS: Glucose, Whole Blood 349 mg/dL (60-115)
[2022-11-21] MEDS: Insulin Lispro 100 UNIT/ML 3 ML VIAL SUBCUT ×2 (18:11→22:15)
[2022-11-21] MEDS: Morphine Sulfate 4 MG/ML CARTRIDGE IVPUSH (18:39)
[2022-11-21 20:50] LABS: Glucose, Whole Blood 373 mg/dL (60-115)
[2022-11-21] MEDS: Tamsulosin HCL 0.4 MG CAPSULE 0.8 MG PO (22:13)
[2022-11-21] MEDS: NaPROXEN 500 MG TABLET PO (22:13)
[2022-11-21] MEDS: 0.9 % Sodium Chloride Flush 3 ML SYRINGE IVFLUSH (22:14)
[2022-11-22] MEDS: vancomycin HCL 750 MG in 0.9 % Sodium Chloride 250 ML 265 MG IV ×2 (00:01→09:25)
[2022-11-22 00:46] VITALS: PULSE 89; RESP 20; O2SAT 92
[2022-11-22 04:00] VITALS: RESP 18
[2022-11-22 06:53] LABS: Hematocrit 31.5 % (42.0-52.0); Mean Corpuscular HGB Conc 34.9 g/dl (31.0-36.0); Mean Corpuscular Hemoglobin 28.9 pg (27.0-33.0); Mean Corpuscular Volume 82.9 fL (80.0-98.0); Mean Platelet Volume 9.2 fL (9.4-12.4); Platelet Count 297 X10*3/uL (160-400); Red Cell Distribution Width 13.3 % (11.0-16.0); White Blood Count 15.9 X10*3/uL (4.8-10.8)
[2022-11-22 07:34] LABS: Anion Gap 19 (12-20); Blood Urea Nitrogen 17 mg/dL (9-16); Calcium 8.5 mg/dL (8.4-10.2); Carbon Dioxide 18 mmol/L (22-29); Chloride 101 mmol/L (96-108); Creatinine Clr Calc Pharmacy 212.8; Estimated Glomerular Filt Rate > 60; Glucose Random 253 mg/dL (60-115); Sodium 134 mmol/L (135-145)
[2022-11-22 07:39] LABS: Creatinine Clr Calc Pharmacy 215.8; Estimated Glomerular Filt Rate > 60
[2022-11-22 07:40] VITALS: BP 180/79; PULSE 74; RESP 24; TEMP 35.8; O2SAT 97
[2022-11-22 08:06] LABS: Glucose, Whole Blood 277 mg/dL (60-115)
[2022-11-22] MEDS: Insulin Lispro 100 UNIT/ML 3 ML VIAL SUBCUT ×4 (08:52→21:05)
[2022-11-22] MEDS: Insulin Glargine,Hum.rec.anlog 100 UNIT/ML 10 ML VIAL 45 UNIT SUBCUT ×2 (08:52→21:06)
[2022-11-22] MEDS: Lidocaine 4 % Patch ADH..PATCH 1 PATCH TRANSDERMA (08:54)
[2022-11-22] MEDS: FLUoxetine HCl 20 MG CAPSULE 60 MG PO (08:56)
[2022-11-22] MEDS: Cyanocobalamin (Vitamin B-12) 100 MCG TABLET 200 MCG PO (08:57)
[2022-11-22] MEDS: Dicyclomine HCl 10 MG CAPSULE 20 MG PO ×2 (08:57→21:04)
[2022-11-22] MEDS: oxyBUTYnin chloride ER 5 MG TAB.ER.24 15 MG PO ×2 (08:58→21:04)
[2022-11-22] MEDS: Cyanocobalamin (Vitamin B-12) 1,000 MCG TABLET 2000 MCG PO (08:59)
[2022-11-22] MEDS: Acetaminophen 325 MG TABLET 975 MG PO ×2 (08:59→15:14)
[2022-11-22] MEDS: Doxazosin Mesylate 2 MG TABLET 4 MG PO (09:00)
[2022-11-22] MEDS: NaPROXEN 500 MG TABLET PO ×2 (09:01→21:04)
[2022-11-22] MEDS: buPROPion HCl XL 300 MG TAB.ER.24H PO (09:01)
[2022-11-22] MEDS: Losartan Potassium 50 MG TABLET PO (09:01)
[2022-11-22] MEDS: Multivitamin TABLET 1 TAB PO (09:01)
[2022-11-22] MEDS: Loratadine 10 MG TABLET PO (09:02)
[2022-11-22] MEDS: Gabapentin 300 MG CAPSULE PO ×2 (09:02→21:04)
[2022-11-22] MEDS: Metoprolol Tartrate 50 MG TABLET PO ×2 (09:03→21:05)
[2022-11-22] MEDS: Omeprazole 40 MG CAPSULE.DR PO (09:03)
[2022-11-22] MEDS: 0.9 % Sodium Chloride Flush 3 ML SYRINGE IVFLUSH ×2 (09:25→21:07)
[2022-11-22] MEDS: QUEtiapine Fumarate 25 MG TABLET PO (09:28)
--- NOTE | 2022-11-22 10:11 | HO.PM.IMPN ---
Subjective Subjective Date of Service: 11/22/22 Interval History: bacteremia ,uncontrolled htn Review of Systems denies any chest pain or sob or nausea or vomitin Physical Exam Vital Signs: Vital Signs: Last Vital Signs Temp 96.5 F L 11/22/22 07:40 Pulse 74 11/22/22 07:40 Resp 24 H 11/22/22 07:40 BP 180/79 H 11/22/22 07:40 Pulse Ox 97 11/22/22 07:40 O2 Del Method 11/22/22 07:40 O2 Flow Rate 2 11/20/22 21:23 BMI result Body Mass Index 68.0 Appearance: Alert.? Oriented X3.? not in distress.?morbid obese. cvs: rrr, [id number] , no murmur res: clear to auscultation ,no rhonchii or wheezing abd: no rebound or guarding ,nt, bs present. skin: upper buttock area small ulcers?(especiially left side). ext pulses present , no cyanosis , right knee pain. neuro: axo3 , nonfocal. Objective Data Active Medications Acetaminophen (Acetaminophen 325 Mg Tablet) 975 mg PO Q8H [facility] Last Admin: 11/22/22 08:59 Dose: 975 mg Documented By: ELSA Amlodipine Besylate (Amlodipine Besylate 2.5 Mg Tablet) 2.5 mg PO DAILY [facility]; Protocol Bupropion HCl (Bupropion Hcl Xl 300 Mg Tab.Er.24h) 300 mg PO DAILY [facility] Last Admin: 11/22/22 09:01 Dose: 300 mg Documented By: ELSA Cyanocobalamin (Cyanocobalamin (Vitamin B-12) 100 Mcg Tablet) 200 mcg PO DAILY [facility] Last Admin: 11/22/22 08:57 Dose: 200 mcg Documented By: ELSA Cyanocobalamin (Cyanocobalamin (Vitamin B-12) 1,000 Mcg Tablet) 2,000 mcg PO DAILY [facility] Last Admin: 11/22/22 08:59 Dose: 2,000 mcg Documented By: ELSA Cyclobenzaprine HCl (Cyclobenzaprine Hcl 10 Mg Tablet) 10 mg PO DAILY PRN PRN Reason: Muscle Spasm Dextrose (Dextrose 50 % 25 Gm/50 Ml Syringe) 25 gm IVPUSH Q15M PRN; Protocol PRN Reason: per Hypoglycemia Standing Ord. Dicyclomine HCl (Dicyclomine Hcl 10 Mg Capsule) 20 mg PO BID [facility] Last Admin: 11/22/22 08:57 Dose: 20 mg Documented By: ELSA Doxazosin Mesylate (Doxazosin Mesylate 2 Mg Tablet) 4 mg PO DAILY [facility] Last Admin: 11/22/22 09:00 Dose: 4 mg Documented By: ELSA Enoxaparin Sodium (Enoxaparin Sodium 40 Mg/0.4 Ml Syringe) 40 mg SUBCUT Q24H [facility] Last Admin: 11/21/22 16:22 Dose: 40 mg Documented By: FAVIAN Fluoxetine HCl (Fluoxetine Hcl 20 Mg Capsule) 60 mg PO DAILY [facility] Last Admin: 11/22/22 08:56 Dose: 60 mg Documented By: ELSA Gabapentin (Gabapentin 300 Mg Capsule) 300 mg PO BID [facility] Last Admin: 11/22/22 09:02 Dose: 300 mg Documented By: ELSA Glucose (Glucose Gel 15 Gm Gel..Gram.) 15 gm PO Q15M PRN; Protocol PRN Reason: per Hypoglycemia Standing Ord. Vancomycin HCl 750 mg/ Sodium (Chloride) 265 mls @ 265 mls/hr IV Q8H [facility] Last Admin: 11/22/22 09:25 Dose: 265 mls/hr Documented By: ELSA Insulin Glargine (Insulin Glargine,Hum.Rec.Anlog 100 Unit/Ml 10 Ml Vial) 45 unit SUBCUT DAILY [facility] Last Admin: 11/22/22 08:52 Dose: 45 unit Documented By: ELSA Insulin Human Lispro (Insulin Lispro 100 Unit/Ml 3 Ml Vial) 0 unit SUBCUT QIDACHS [facility]; Protocol Last Admin: 11/22/22 08:52 Dose: 1 unit Documented By: ELSA Lidocaine (Lidocaine 4 % Patch Adh..Patch) 1 patch TRANSDERMA DAILY [facility]; Protocol Last Admin: 11/22/22 08:54 Dose: 1 patch Documented By: ELSA Loratadine (Loratadine 10 Mg Tablet) 10 mg PO DAILY [facility] Last Admin: 11/22/22 09:02 Dose: 10 mg Documented By: ELSA Losartan Potassium (Losartan Potassium 50 Mg Tablet) 50 mg PO DAILY [facility]; Protocol Last Admin: 11/22/22 09:01 Dose: 50 mg Documented By: ELSA Metoprolol Tartrate (Metoprolol Tartrate 50 Mg Tablet) 50 mg PO BID [facility]; Protocol Last Admin: 11/22/22 09:03 Dose: 50 mg Documented By: ELSA Multivitamins/Vitamin C (Multivitamin Tablet) 1 tab PO DAILY [facility] Last Admin: 11/22/22 09:01 Dose: 1 tab Documented By: ELSA Naproxen (Naproxen 500 Mg Tablet) 500 mg PO BID [facility] Last Admin: 11/22/22 09:01 Dose: 500 mg Documented By: ELSA Non-Formulary Medication (Rosuvastatin) 40 mg PO DAILY [facility] Omeprazole (Omeprazole 40 Mg Capsule.Dr) 40 mg PO DAILY [facility] Last Admin: 11/22/22 09:03 Dose: 40 mg Documented By: ELSA Oxybutynin Chloride (Oxybutynin Chloride Er 5 Mg Tab.Er.24) 15 mg PO BID [facility] Oxybutynin Chloride (Oxybutynin Chloride Er 5 Mg Tab.Er.24) 15 mg PO DAILY [facility] Last Admin: 11/22/22 08:58 Dose: 15 mg Documented By: ELSA Pharmacy Consult (Consult Rx Vancomycin Dosing) 1 each MISCELLANE DAILY PRN PRN Reason: Consult order Psyllium Hydrophilic Mucilloid (Psyllium Seed 3.4 Gm Powd.Pack) 3.4 gm PO BID [facility] Last Admin: 11/22/22 09:15 Dose: 3.4 gm Documented By: ELSA Quetiapine Fumarate (Quetiapine Fumarate 25 Mg Tablet) 12.5 mg PO BEDTIME [facility] Last Admin: 11/21/22 22:14 Dose: 12.5 mg Documented By: DEANNA Quetiapine Fumarate (Quetiapine Fumarate 25 Mg Tablet) 25 mg PO DAILY [facility] Last Admin: 11/22/22 09:28 Dose: 25 mg Documented By: ELSA Sodium Chloride (0.9 % Sodium Chloride Flush 3 Ml Syringe) 3 ml IVFLUSH QSHIFT [facility] Last Admin: 11/22/22 09:25 Dose: 3 ml Documented By: ELSA Tamsulosin HCl (Tamsulosin Hcl 0.4 Mg Capsule) 0.8 mg PO BEDTIME [facility] Last Admin: 11/21/22 22:13 Dose: 0.8 mg Documented By: DEANNA Labs 11/22/22 06:16 11/22/22 06:16 Labs: Laboratory Results - last 24 hr 11/21/22 11/21/22 11/21/22 12:00 12:47 12:47 MCV 86.4 MCH 29.1 MCHC 33.7 RDW 13.3 Plt Count 246 MPV 9.3 L Immature Gran % (Auto) 0.8 H Neut % (Auto) 87.1 H Lymph % (Auto) 4.7 L [place] % (Auto) 7.2 Eos % (Auto) 0.1 Baso % (Auto) 0.1 Lymph # (Auto) 0.7 L [place] # (Auto) 1.1 Eos # (Auto) 0.0 Baso # (Auto) 0.0 Abs Immat Gran (auto) 0.12 H Absolute Neuts (auto) 13.1 H Absolute Nucleated RBC 0.000 Nucleated RBC % (auto) 0.0 Anion Gap 18 Estim Creat Clear Calc 157.5 Estimated GFR > 60 POC Glucose 265 H Random Glucose 329 H Estimat Average Glucose Hemoglobin A1c % Lactic Acid Calcium 8.3 L D Total Bilirubin 0.4 Direct Bilirubin < 0.2 AST 24 ALT 25 Alkaline Phosphatase 94 Total Protein 6.2 L Albumin 3.6 11/21/22 11/21/22 11/21/22 12:47 12:47 17:49 MCV MCH MCHC RDW Plt Count MPV Immature Gran % (Auto) Neut % (Auto) Lymph % (Auto) [place] % (Auto) Eos % (Auto) Baso % (Auto) Lymph # (Auto) [place] # (Auto) Eos # (Auto) Baso # (Auto) Abs Immat Gran (auto) Absolute Neuts (auto) Absolute Nucleated RBC Nucleated RBC % (auto) Anion Gap Estim Creat Clear Calc Estimated GFR POC Glucose 349 H Random Glucose Estimat Average Glucose 212 Hemoglobin A1c % 9.0 Lactic Acid 1.1 Calcium Total Bilirubin Direct Bilirubin AST ALT Alkaline Phosphatase Total Protein Albumin 11/21/22 11/22/22 11/22/22 20:47 06:16 06:16 MCV 82.9 MCH 28.9 MCHC 34.9 RDW 13.3 Plt Count 297 MPV 9.2 L Immature Gran % (Auto) Neut % (Auto) Lymph % (Auto) [place] % (Auto) Eos % (Auto) Baso % (Auto) Lymph # (Auto) [place] # (Auto) Eos # (Auto) Baso # (Auto) Abs Immat Gran (auto) Absolute Neuts (auto) Absolute Nucleated RBC 0.000 Nucleated RBC % (auto) 0.0 Anion Gap Estim Creat Clear Calc 215.8 Estimated GFR > 60 POC Glucose 373 H* Random Glucose Estimat Average Glucose Hemoglobin A1c % Lactic Acid Calcium Total Bilirubin Direct Bilirubin AST ALT Alkaline Phosphatase Total Protein Albumin 11/22/22 11/22/22 06:16 07:44 MCV MCH MCHC RDW Plt Count MPV Immature Gran % (Auto) Neut % (Auto) Lymph % (Auto) [place] % (Auto) Eos % (Auto) Baso % (Auto) Lymph # (Auto) [place] # (Auto) Eos # (Auto) Baso # (Auto) Abs Immat Gran (auto) Absolute Neuts (auto) Absolute Nucleated RBC Nucleated RBC % (auto) Anion Gap 19 Estim Creat Clear Calc 212.8 Estimated GFR > 60 POC Glucose 277 H Random Glucose 253 H Estimat Average Glucose Hemoglobin A1c % Lactic Acid Calcium 8.5 Total Bilirubin Direct Bilirubin AST ALT Alkaline Phosphatase Total Protein Albumin Microbiology Microbiology Results: Microbiology 11/20/22 23:18 Blood Culture - Preliminary Blood - Venous Prelim: GPC Gram Stain only 11/20/22 23:18 Blood Culture - Preliminary Blood - Venous Prelim: GPC Gram Stain only Assessment and Plan (1) Fall: Status: Acute (2) Hyperglycemia: Status: Acute (3) Infected lesion of skin: Status: Acute (4) Bacteremia: Status: Acute Plan 57-year-old male morbidly obese, hypertension, insulin-dependent , prostate cancer status post surgery in 2018 (?? Laser prostatectomy) and radiation, urinary incontinence from 3-4 years, sleep apnea noncompliant with CPAP, ex-smoker:had fall , back ulcers ,bacteremia,?uti. ?sepsis: ?? Due to skin and skin structure infection/small wound on the back In addition patient was to be having UTI recently-sent off with Keflex from [employer] which he did not yet started. Has leukocytosis of 15, no fever lactic acid normal, has bacteremia [id number] positive cocci in chains .? No fever or tachycardia or tachypnea Sepsis exam completed Will continue vancomycin and ceftriaxone Vanco trough id eval. Diabetes with hyperglycemia: Diabetic diet hemoglobin A1c- 9. Continue Lantus and we will adjust fingerstick with sliding scale. Hyponatremia:?pseudohypanatremia due to hyperglycemia . ?Sleep apnea:? Patient is noncompliant with CPAP. HLP:? Continue statin. htn uncontrolled:? Continue home regimen losartan, metoprolol,added amlodipine. History of prostate cancer,?? Urinary retention versus incontinence: Continue home Flomax, terazosin. Anxiety:? Continue home anxiety regimen . Fall:mechnical,? Patient sent a he did not hit his head, no loss of consciousness Has some right knee soreness, added x-ray of bilateral knees. Patient unable to tolerate CT head does not want lies flat. Will add skull x-ray-since suspicion is low because patient says he did not hit his head when he fell. Toxic metabolic encephalopathy:? Probably the symptoms patient's is dosing including excessive sleepiness, and urinating but all places:? Probably related to excessive oxycodone use, decreased p.o. intake. does does not seem to be related to sepsis. Currently does not seem to be confused. ch pains : hold oxycodone , continue gabapentine ,flexril, added tylenol and lidociane patch. morbid obesity:? Encouraged to lose weight. back skin ulcers : turn frequent,wound care ,oob, ambulate. Generalize weakness and functional decline family unable to take care:? Added PT evaluation. DVT prophylaxis:: With subQ Lovenox In patient need:? Sepsis/bacteremia need IV antibiotics-also blood culture pending in addition ,need dm with hyperglycemia monitoring and management, Time Spent With Patient Time: Total time managing care of this patient today ____ minutes. Quality Stroke Does the patient have a stroke diagnosis?: No VTE Prior VTE?: No VTE Risk Level:: Medical - moderate - high VTE Device Contraindication: N/A - Device Ordered VTE Drug Contraindication: N/A - Med Ordered
[2022-11-22 11:31] LABS: Glucose, Whole Blood 301 mg/dL (60-115)
[2022-11-22] MEDS: amLODIPine Besylate 2.5 MG TABLET PO (12:03)
[2022-11-22] MEDS: cefTRIAXone sodium 1 GM in 0.9 % Sodium Chloride 50 ML IV (15:04)
[2022-11-22 15:09] VITALS: BP 173/89; PULSE 71; RESP 22; TEMP 36.1; O2SAT 97
[2022-11-22 15:17] LABS: Vancomycin Trough 5.1 mcg/mL (10.0-20.0)
--- NOTE | 2022-11-22 15:47 | HE.PHANOTE ---
RE: gerber Pt's weight was updated to 215kg, BMI of 68; verified with nurse Rowan. Trough will come back low due to distribution, increased dose to 1500mg Q8H due to pt size, predicted AUC 406 but trough prediction of 4.2. Level to be drawn 11/23/22 @1400. Will be monitoring for dose dumping.
[2022-11-22] MEDS: vancomycin HCL 1,500 MG in 0.9 % Sodium Chloride 500 ML 333.33 MG IV (16:01)
[2022-11-22] MEDS: Enoxaparin Sodium 40 MG/0.4 ML SYRINGE SUBCUT (16:02)
--- NOTE | 2022-11-22 16:07 | MHC.CM.PN ---
CM ATTEMPTED TO SEE PT PT SLEEPING IN CHAIR AND DOES NOT RESPOND TO SEVERAL ATTEMPTS TO WAKE HIM CM WILL REVISIT TOMORROW
[2022-11-22 17:13] LABS: Glucose, Whole Blood 317 mg/dL (60-115)
[2022-11-22 19:57] VITALS: BP 168/83; PULSE 63; RESP 18; TEMP 37.1; O2SAT 95
[2022-11-22 20:26] LABS: Glucose, Whole Blood 357 mg/dL (60-115)
[2022-11-22] MEDS: Tamsulosin HCL 0.4 MG CAPSULE 0.8 MG PO (21:03)
[2022-11-22] MEDS: QUEtiapine Fumarate 25 MG TABLET 12.5 MG PO (21:05)
[2022-11-23] MEDS: vancomycin HCL 1,500 MG in 0.9 % Sodium Chloride 500 ML 333.3 MG IV (00:06)
[2022-11-23] MEDS: Acetaminophen 325 MG TABLET 975 MG PO ×4 (00:06→23:47)
[2022-11-23 01:06] VITALS: PULSE 60; O2SAT 99
[2022-11-23 04:00] VITALS: BP 142/73; PULSE 78; RESP 20; TEMP 36; O2SAT 97
[2022-11-23 06:27] LABS: Hematocrit 31.9 % (42.0-52.0); Hemoglobin 10.8 g/dl (14.0-18.0); Mean Corpuscular HGB Conc 33.9 g/dl (31.0-36.0); Mean Corpuscular Hemoglobin 28.4 pg (27.0-33.0); Mean Corpuscular Volume 83.9 fL (80.0-98.0); Mean Platelet Volume 9.3 fL (9.4-12.4); Platelet Count 314 X10*3/uL (160-400); Red Cell Distribution Width 13.6 % (11.0-16.0); White Blood Count 12.2 X10*3/uL (4.8-10.8)
[2022-11-23 06:40] LABS: Creatinine Clr Calc Pharmacy 225.3; Estimated Glomerular Filt Rate > 60
[2022-11-23 06:54] LABS: Anion Gap 15 (12-20); Blood Urea Nitrogen 13 mg/dL (9-16); Calcium 8.3 mg/dL (8.4-10.2); Carbon Dioxide 24 mmol/L (22-29); Chloride 100 mmol/L (96-108); Creatinine Clr Calc Pharmacy 225.3; Estimated Glomerular Filt Rate > 60; Glucose Random 293 mg/dL (60-115); Potassium 3.9 mmol/L (3.3-5.1); Sodium 135 mmol/L (135-145)
[2022-11-23 07:43] VITALS: BP 170/74; PULSE 86; RESP 20; TEMP 36.5; O2SAT 97
[2022-11-23 07:52] LABS: Glucose, Whole Blood 302 mg/dL (60-115)
[2022-11-23] MEDS: Metoprolol Tartrate 50 MG TABLET PO (08:15)
[2022-11-23] MEDS: Gabapentin 300 MG CAPSULE PO ×2 (08:16→21:12)
[2022-11-23] MEDS: buPROPion HCl XL 300 MG TAB.ER.24H PO (08:16)
[2022-11-23] MEDS: NaPROXEN 500 MG TABLET PO ×2 (08:16→21:12)
[2022-11-23] MEDS: Doxazosin Mesylate 2 MG TABLET 4 MG PO (08:16)
[2022-11-23] MEDS: Loratadine 10 MG TABLET PO (08:16)
[2022-11-23] MEDS: Omeprazole 40 MG CAPSULE.DR PO (08:16)
[2022-11-23] MEDS: Dicyclomine HCl 10 MG CAPSULE 20 MG PO ×2 (08:17→21:12)
[2022-11-23] MEDS: Multivitamin TABLET 1 TAB PO (08:17)
[2022-11-23] MEDS: amLODIPine Besylate 2.5 MG TABLET PO (08:17)
[2022-11-23] MEDS: Losartan Potassium 50 MG TABLET PO (08:17)
[2022-11-23] MEDS: Cyanocobalamin (Vitamin B-12) 100 MCG TABLET 200 MCG PO (08:17)
[2022-11-23] MEDS: oxyBUTYnin chloride ER 5 MG TAB.ER.24 15 MG PO (08:18)
[2022-11-23] MEDS: FLUoxetine HCl 20 MG CAPSULE 60 MG PO (08:18)
[2022-11-23] MEDS: QUEtiapine Fumarate 25 MG TABLET PO (08:19)
[2022-11-23] MEDS: Cyclobenzaprine HCl 10 MG TABLET PO (08:19)
[2022-11-23] MEDS: Cyanocobalamin (Vitamin B-12) 1,000 MCG TABLET 2000 MCG PO (08:19)
[2022-11-23] MEDS: Insulin Lispro 100 UNIT/ML 3 ML VIAL SUBCUT ×5 (08:21→21:14)
[2022-11-23] MEDS: 0.9 % Sodium Chloride Flush 3 ML SYRINGE IVFLUSH ×3 (08:22→23:50)
[2022-11-23] MEDS: polyethylene glycoL 3350 17 GM POWD.PACK PO (10:45)
[2022-11-23] MEDS: cefTRIAXone sodium 2 GM in 0.9 % Sodium Chloride 50 ML IV (10:45)
[2022-11-23 11:30] LABS: Glucose, Whole Blood 311 mg/dL (60-115)
--- NOTE | 2022-11-23 11:45 | P.PNIM_ITS ---
Subjective Subjective Date of Service: 11/23/22 Interval History: bacteremia ,uncontrolled htn,constipation Review of Systems denies any chest pain or sob or nausea or vomitin says no bm for 2 days ,no abd pain ,passing gases Physical Exam Vital Signs: Vital Signs: Last Vital Signs Temp 97.7 F 11/23/22 07:43 Pulse 86 11/23/22 07:43 Resp 20 11/23/22 07:43 BP 170/74 H 11/23/22 07:43 Pulse Ox 97 11/23/22 07:43 O2 Del Method 11/23/22 07:43 O2 Flow Rate 2 11/22/22 15:09 BMI result Body Mass Index 68.0 Appearance: Alert.? Oriented X3.? not in distress.?morbid obese. cvs: rrr, [id number] , no murmur res: clear to auscultation ,no rhonchii or wheezing abd: no rebound or guarding ,nt, bs present. skin: upper buttock area small ulcers?(especiially left side). ext pulses present , no cyanosis , right knee pain. neuro: axo3 , nonfocal. Objective Data Active Medications Acetaminophen (Acetaminophen 325 Mg Tablet) 975 mg PO Q8H [facility] Last Admin: 11/23/22 07:03 Dose: 975 mg Documented By: DEANNA Amlodipine Besylate (Amlodipine Besylate 2.5 Mg Tablet) 2.5 mg PO DAILY [facility]; Protocol Last Admin: 11/23/22 08:17 Dose: 2.5 mg Documented By: VENECIA Bupropion HCl (Bupropion Hcl Xl 300 Mg Tab.Er.24h) 300 mg PO DAILY [facility] Last Admin: 11/23/22 08:16 Dose: 300 mg Documented By: VENECIA Cyanocobalamin (Cyanocobalamin (Vitamin B-12) 100 Mcg Tablet) 200 mcg PO DAILY [facility] Last Admin: 11/23/22 08:17 Dose: 200 mcg Documented By: VENECIA Cyanocobalamin (Cyanocobalamin (Vitamin B-12) 1,000 Mcg Tablet) 2,000 mcg PO DAILY [facility] Last Admin: 11/23/22 08:19 Dose: 2,000 mcg Documented By: VENECIA Cyclobenzaprine HCl (Cyclobenzaprine Hcl 10 Mg Tablet) 10 mg PO DAILY PRN PRN Reason: Muscle Spasm Last Admin: 11/23/22 08:19 Dose: 10 mg Documented By: VENECIA Dextrose (Dextrose 50 % 25 Gm/50 Ml Syringe) 25 gm IVPUSH Q15M PRN; Protocol PRN Reason: per Hypoglycemia Standing Ord. Dicyclomine HCl (Dicyclomine Hcl 10 Mg Capsule) 20 mg PO BID [facility] Last Admin: 11/23/22 08:17 Dose: 20 mg Documented By: VENECIA Docusate Sodium (Docusate Sodium 100 Mg Capsule) 100 mg PO BEDTIME [facility] Doxazosin Mesylate (Doxazosin Mesylate 2 Mg Tablet) 4 mg PO DAILY [facility] Last Admin: 11/23/22 08:16 Dose: 4 mg Documented By: VENECIA Enoxaparin Sodium (Enoxaparin Sodium 40 Mg/0.4 Ml Syringe) 40 mg SUBCUT Q24H [facility] Last Admin: 11/22/22 16:02 Dose: 40 mg Documented By: ELSA Fluoxetine HCl (Fluoxetine Hcl 20 Mg Capsule) 60 mg PO DAILY [facility] Last Admin: 11/23/22 08:18 Dose: 60 mg Documented By: VENECIA Gabapentin (Gabapentin 300 Mg Capsule) 300 mg PO BID [facility] Last Admin: 11/23/22 08:16 Dose: 300 mg Documented By: VENECIA Glucose (Glucose Gel 15 Gm Gel..Gram.) 15 gm PO Q15M PRN; Protocol PRN Reason: per Hypoglycemia Standing Ord. Ceftriaxone Sodium 2 gm/ (Sodium Chloride) 50 mls @ 100 mls/hr IV Q24H [facility] Last Infusion: 11/23/22 11:25 Dose: 0 mls/hr Documented By: CHRISTINA Insulin Glargine (Insulin Glargine,Hum.Rec.Anlog 100 Unit/Ml 10 Ml Vial) 45 unit SUBCUT DAILY [facility] Last Admin: 11/22/22 21:06 Dose: 45 unit Documented By: DEANNA Insulin Human Lispro (Insulin Lispro 100 Unit/Ml 3 Ml Vial) 0 unit SUBCUT QIDACHS [facility]; Protocol Last Admin: 11/23/22 08:21 Dose: 8 unit Documented By: VENECIA Lidocaine (Lidocaine 4 % Patch Adh..Patch) 1 patch TRANSDERMA DAILY [facility]; Protocol Last Admin: 11/23/22 08:26 Dose: Not Given Documented By: VENECIA Non-Admin Reason: pt refusfed Loratadine (Loratadine 10 Mg Tablet) 10 mg PO DAILY [facility] Last Admin: 11/23/22 08:16 Dose: 10 mg Documented By: VENECIA Losartan Potassium (Losartan Potassium 50 Mg Tablet) 50 mg PO DAILY [facility]; Protocol Last Admin: 11/23/22 08:17 Dose: 50 mg Documented By: VENECIA Metoprolol Tartrate (Metoprolol Tartrate 50 Mg Tablet) 50 mg PO BID [facility]; Protocol Last Admin: 11/23/22 08:15 Dose: 50 mg Documented By: VENECIA Multivitamins/Vitamin C (Multivitamin Tablet) 1 tab PO DAILY [facility] Last Admin: 11/23/22 08:17 Dose: 1 tab Documented By: VENECIA Naproxen (Naproxen 500 Mg Tablet) 500 mg PO BID [facility] Last Admin: 11/23/22 08:16 Dose: 500 mg Documented By: VENECIA Non-Formulary Medication (Rosuvastatin) 40 mg PO DAILY [facility] Omeprazole (Omeprazole 40 Mg Capsule.Dr) 40 mg PO DAILY [facility] Last Admin: 11/23/22 08:16 Dose: 40 mg Documented By: VENECIA Oxybutynin Chloride (Oxybutynin Chloride Er 5 Mg Tab.Er.24) 15 mg PO BID [facility] Last Admin: 11/23/22 10:12 Dose: Not Given Documented By: VENECIA Non-Admin Reason: per Oxybutynin Chloride (Oxybutynin Chloride Er 5 Mg Tab.Er.24) 15 mg PO DAILY [facility] Last Admin: 11/23/22 08:18 Dose: 15 mg Documented By: VENECIA Pharmacy Consult (Consult Rx Vancomycin Dosing) 1 each MISCELLANE DAILY PRN PRN Reason: Consult order Polyethylene Glycol (Polyethylene Glycol 3350 17 Gm Powd.Pack) 17 gm PO DAILY [facility] Last Admin: 11/23/22 10:45 Dose: 17 gm Documented By: VENECIA Psyllium Hydrophilic Mucilloid (Psyllium Seed 3.4 Gm Powd.Pack) 3.4 gm PO BID [facility] Last Admin: 11/23/22 08:15 Dose: 3.4 gm Documented By: VENECIA Quetiapine Fumarate (Quetiapine Fumarate 25 Mg Tablet) 12.5 mg PO BEDTIME [facility] Last Admin: 11/22/22 21:05 Dose: 12.5 mg Documented By: DEANNA Quetiapine Fumarate (Quetiapine Fumarate 25 Mg Tablet) 25 mg PO DAILY [facility] Last Admin: 11/23/22 08:19 Dose: 25 mg Documented By: VENECIA Sodium Biphosphate/Sodium Phosphate (Sodium Phosphate,Miner-Dibasic 133 Ml Enema) 133 ml [place] ONCE PRN PRN Reason: Constipation Sodium Chloride (0.9 % Sodium Chloride Flush 3 Ml Syringe) 3 ml IVFLUSH QSHIFT [facility] Last Admin: 11/23/22 08:22 Dose: 3 ml Documented By: VENECIA Tamsulosin HCl (Tamsulosin Hcl 0.4 Mg Capsule) 0.8 mg PO BEDTIME [facility] Last Admin: 11/22/22 21:03 Dose: 0.8 mg Documented By: DEANNA Labs 11/23/22 05:25 11/23/22 05:25 Labs: Laboratory Results - last 24 hr 11/22/22 11/22/22 11/22/22 14:21 16:40 20:02 MCV MCH MCHC RDW Plt Count MPV Absolute Nucleated RBC Nucleated RBC % (auto) Anion Gap Estim Creat Clear Calc Estimated GFR POC Glucose 317 H 357 H* Random Glucose Calcium Vancomycin Trough 5.1 L 11/23/22 11/23/22 11/23/22 05:25 05:25 05:25 MCV 83.9 MCH 28.4 MCHC 33.9 RDW 13.6 Plt Count 314 MPV 9.3 L Absolute Nucleated RBC 0.000 Nucleated RBC % (auto) 0.0 Anion Gap 15 Estim Creat Clear Calc 225.3 225.3 Estimated GFR > 60 > 60 POC Glucose Random Glucose 293 H Calcium 8.3 L Vancomycin Trough 11/23/22 11/23/22 07:46 11:16 MCV MCH MCHC RDW Plt Count MPV Absolute Nucleated RBC Nucleated RBC % (auto) Anion Gap Estim Creat Clear Calc Estimated GFR POC Glucose 302 H 311 H Random Glucose Calcium Vancomycin Trough Microbiology Microbiology Results: Microbiology 11/20/22 23:18 Blood Culture - Final Blood - Venous Strep agalactiae (Grp B) 11/20/22 23:18 Blood Culture - Final Blood - Venous Strep agalactiae (Grp B) 11/21/22 12:48 Blood Culture - Preliminary Blood - Venous No growth after 24 hours. 11/21/22 12:47 Blood Culture - Preliminary Blood - Venous No growth after 24 hours. Assessment and Plan (1) Hyperglycemia: Status: Acute (2) Pressure ulcer, back, lower: Status: Acute (3) Hyponatremia: Status: Acute (4) Infected lesion of skin: Status: Acute (5) Streptococcus agalactiae infection: Status: Acute (6) Bacteremia: Status: Acute (7) Constipation: Status: Acute Plan Hospital day-3 57-year-old male morbidly obese, hypertension, insulin-dependent , prostate cancer status post surgery in 2018 (?? Laser prostatectomy) and radiation, urinary incontinence from 3-4 years, sleep apnea noncompliant with CPAP, ex- smoker:had fall , back ulcers ,bacteremia,?uti. ?sepsis: ?? Due to skin and skin structure infection/small wound on the back/possible strep aglacticae bacteremia In addition patient was to be having UTI recently-sent off with Keflex from [employer] which he did not yet started. Has leukocytosis of 12.2, no fever lactic acid normal, has bacteremia -strep aglacticae-senstive to ceftriaxone , repeat blood culture -neg@24hrs .? No fever or tachycardia or tachypnea continue ceftriaxone,dc vancomycin sincestrep aglacticaex2 senstive to ceftriaxone id eval. Diabetes with hyperglycemia: Diabetic diet hemoglobin A1c- 9. adjusted lantus and fingerstick with sliding scale. Hyponatremia:?pseudohypanatremia due to hyperglycemia . ?Sleep apnea:? Patient is noncompliant with CPAP. HLP:? Continue statin. htn uncontrolled:? Continue losartan and amlodipine. changed metoprolol to coreg for better blood pressure control. History of prostate cancer,?? Urinary retention versus incontinence: Continue home Flomax, terazosin. Anxiety:? Continue home anxiety regimen . Fall:mechnical,? Patient sent a he did not hit his head, no loss of consciousness knee soarness inprovin head xray-fine knee xray -b/l arthtitis Toxic metabolic encephalopathy:? Probably the symptoms patient's is dosing including excessive sleepiness, and urinating but all places:? Probably related to excessive oxycodone use, decreased p.o. intake. does does not seem to be related to sepsis. Currently does not seem to be confused. ch pains : hold oxycodone , continue gabapentine ,flexril, added tylenol and lidociane patch. morbid obesity:? Encouraged to lose weight. back skin ulcers : turn frequent,wound care ,oob, ambulate. Generalize weakness and functional decline family unable to take care:? Added PT evaluation. Constipation: Added laxatives, enema if needed DVT prophylaxis:: With subQ Lovenox In patient need:? Sepsis/aglacticae bacteremia -need IV antibiotics-also blood culture pending in addition ,need dm with hyperglycemia monitoring and management,in addition has uncontrolled htn -needs blood pressure monitering and htn med adjustment. Time Spent With Patient Time: Total time managing care of this patient today ____ minutes. Quality Stroke Does the patient have a stroke diagnosis?: No VTE Prior VTE?: No VTE Risk Level:: Medical - moderate - high VTE Device Contraindication: N/A - Device Ordered VTE Drug Contraindication: N/A - Med Ordered
[2022-11-23] MEDS: Insulin Glargine,Hum.rec.anlog 100 UNIT/ML 10 ML VIAL SUBCUT (12:10)
--- NOTE | 2022-11-23 14:04 | MHC.CM.PN ---
CM MET WITH PT AND SON AT BEDSIDE PT LIVES WITH SON AND HIS PT IS INDEPENDENT WITH CARE HE USES A ROLLATOR PRIMARILY AND ALSO HAS A CANE PT IS SUPPOSED TO USE A CPAP, BUT ADMITS HE DOES NOT HE IS COVID VAX AND BOOSTED PCP: ELSY ALVAREZ HCP WILL BE COMPLETED, PT TO NAME HIS SON, MURTAZA, HIS AGENT [facility] DELIVERED DCP TBD PT AND SON REPORT PTS PCP WANTS HIM TO DC TO [facility] IS FIRST CHOICE
[2022-11-23] MEDS: Enoxaparin Sodium 40 MG/0.4 ML SYRINGE SUBCUT (15:09)
[2022-11-23 15:31] VITALS: BP 167/93; PULSE 91; RESP 18; TEMP 36.9; O2SAT 94
[2022-11-23 17:09] LABS: Glucose, Whole Blood 409 mg/dL (60-115)
[2022-11-23 20:00] VITALS: BP 185/88; PULSE 75; RESP 18; TEMP 36.8; O2SAT 97
[2022-11-23 20:45] LABS: Glucose, Whole Blood 378 mg/dL (60-115)
[2022-11-23] MEDS: Docusate Sodium 100 MG CAPSULE PO (21:11)
[2022-11-23] MEDS: Tamsulosin HCL 0.4 MG CAPSULE 0.8 MG PO (21:12)
[2022-11-23] MEDS: carvediloL 12.5 MG TABLET PO (21:13)
--- NOTE | 2022-11-23 23:35 | PC.RT ---
Pt refused CPAP, not able to tolerate
[2022-11-24 04:00] VITALS: BP 172/78; PULSE 78; RESP 17; TEMP 36.6; O2SAT 96
[2022-11-24 06:58] LABS: Creatinine Clr Calc Pharmacy 232.1; Estimated Glomerular Filt Rate > 60
[2022-11-24 07:23] VITALS: BP 168/74; PULSE 78; RESP 20; TEMP 36.2; O2SAT 96
[2022-11-24 07:38] LABS: Glucose, Whole Blood 281 mg/dL (60-115)
[2022-11-24] MEDS: Loratadine 10 MG TABLET PO (08:05)
[2022-11-24] MEDS: Losartan Potassium 50 MG TABLET PO (08:05)
[2022-11-24] MEDS: Omeprazole 40 MG CAPSULE.DR PO (08:05)
[2022-11-24] MEDS: Doxazosin Mesylate 2 MG TABLET 4 MG PO (08:05)
[2022-11-24] MEDS: oxyBUTYnin chloride ER 5 MG TAB.ER.24 15 MG PO (08:06)
[2022-11-24] MEDS: FLUoxetine HCl 20 MG CAPSULE 60 MG PO (08:06)
[2022-11-24] MEDS: Cyanocobalamin (Vitamin B-12) 1,000 MCG TABLET 2000 MCG PO (08:06)
[2022-11-24] MEDS: NaPROXEN 500 MG TABLET PO ×2 (08:07→21:39)
[2022-11-24] MEDS: amLODIPine Besylate 2.5 MG TABLET PO (08:07)
[2022-11-24] MEDS: carvediloL 12.5 MG TABLET PO ×2 (08:07→21:39)
[2022-11-24] MEDS: Acetaminophen 325 MG TABLET 975 MG PO ×2 (08:07→17:08)
[2022-11-24] MEDS: Gabapentin 300 MG CAPSULE PO ×2 (08:08→21:41)
[2022-11-24] MEDS: Cyanocobalamin (Vitamin B-12) 100 MCG TABLET 200 MCG PO (08:08)
[2022-11-24] MEDS: Multivitamin TABLET 1 TAB PO (08:08)
[2022-11-24] MEDS: Dicyclomine HCl 10 MG CAPSULE 20 MG PO ×2 (08:08→21:41)
[2022-11-24] MEDS: buPROPion HCl XL 300 MG TAB.ER.24H PO (08:08)
[2022-11-24] MEDS: QUEtiapine Fumarate 25 MG TABLET PO (08:09)
[2022-11-24] MEDS: Insulin Lispro 100 UNIT/ML 3 ML VIAL SUBCUT ×4 (08:10→21:41)
[2022-11-24] MEDS: polyethylene glycoL 3350 17 GM POWD.PACK PO (08:16)
[2022-11-24] MEDS: 0.9 % Sodium Chloride Flush 3 ML SYRINGE IVFLUSH ×3 (08:19→21:57)
[2022-11-24] MEDS: Insulin Glargine,Hum.rec.anlog 100 UNIT/ML 10 ML VIAL 50 UNIT SUBCUT (08:24)
--- NOTE | 2022-11-24 09:21 | P.CDIC_ITS ---
CDI Concurrent Query Documentation Clarification: PHYSICIAN'S DOCUMENTATION REQUEST Date of Query: 11/24/22920 Patient Name: Jermaine Castillo Admit Date: 11/21/22 Dear Doctor, A review of the medical record indicates additional documentation may be indicated. Please review below and update the documentation accordingly. Clinical Indicators: Risk Factors/Clinical Indicators/Treatments Wound care notes 11/21 - Pressure injury Stage 3 left lower buttock Slough, yellow Foam dressing Based on the above, could you please provide, in the Progress Notes, further information regarding the ulcer/wound: * If a pressure ulcer, please also include the stage* of the ulcer: * Stage 1 - Skin intact, non-blanchable redness * Stage 2 - Partial thickness loss of dermis, includes intact or open blister * Stage 3 - Full thickness tissue not including bone, tendon, or muscle * Stage 4 - Full thickness tissue loss, including exposed bones, tendon, or muscle * Other * Unable to determine *Source: National Pressure Ulcer Advisory Panel (NPUAP) Use of terms such as suspected, likely, concern for, or probable (associated with a specific diagnosis that is being evaluated, monitored, or treated as if it exists) are acceptable and can be coded in the inpatient setting, when documented at the time of discharge. Thank you, Monie Giron [facility], CDIS Extension: [phone] Please use your independent medical judgment in providing your response. THIS QUERY IS PART OF THE PERMANENT MEDICAL RECORD Provider Response: Other Other Diagnosis: pressure injury -stage unclear , will add wound consult
--- NOTE | 2022-11-24 09:25 | P.CDIC_ITS ---
CDI Concurrent Query Documentation Clarification: PHYSICIAN'S DOCUMENTATION REQUEST Date of Query: 11/24/22924 Patient Name: Jermaine Castillo Admit Date: 11/21/22 Dear Doctor, A review of the medical record indicates additional documentation may be indicated. Please review below and update the documentation accordingly. Clinical Indicators: Risk Factors/Clinical Indicators/Treatments Wound care notes 11/21 - Pressure injury Stage 2 left upper buttock. Dry and intact Foam dressing Based on the above, could you please provide, in the Progress Notes, further information regarding the ulcer/wound: * If a pressure ulcer, please also include the stage* of the ulcer: * Stage 1 - Skin intact, non-blanchable redness * Stage 2 - Partial thickness loss of dermis, includes intact or open blister * Stage 3 - Full thickness tissue not including bone, tendon, or muscle Other * Unable to determine *Source: National Pressure Ulcer Advisory Panel (NPUAP) Use of terms such as suspected, likely, concern for, or probable (associated with a specific diagnosis that is being evaluated, monitored, or treated as if it exists) are acceptable and can be coded in the inpatient setting, when documented at the time of discharge. Thank you, Monie Giron [facility], CDIS Extension: [phone] Please use your independent medical judgment in providing your response. THIS QUERY IS PART OF THE PERMANENT MEDICAL RECORD Provider Response: Other Other Diagnosis: pressure versus maceration related injury Unable to determine-will addwound care consult
--- NOTE | 2022-11-24 10:42 | P.PNIM_ITS ---
Subjective Subjective Date of Service: 11/24/22 Interval History: strep algatcae bacteremia,uncontrolled htn,constipation Review of Systems denies any chest pain or sob or nausea or vomitin still constipated ,no abd pain ,passing gases Physical Exam Vital Signs: Vital Signs: Last Vital Signs Temp 97.2 F 11/24/22 07:23 Pulse 78 11/24/22 07:23 Resp 20 11/24/22 07:23 BP 168/74 H 11/24/22 07:23 Pulse Ox 96 11/24/22 07:23 O2 Del Method 11/24/22 07:23 O2 Flow Rate 2 11/22/22 15:09 BMI result Body Mass Index 68.0 ?Appearance: Alert.? Oriented X3.? not in distress.?morbid obese. cvs: rrr, [id number] , no murmur res: clear to auscultation ,no rhonchii or wheezing abd: no rebound or guarding ,nt, bs present. skin: upper buttock area small ulcers?(especiially left side). ext pulses present , no cyanosis , right knee pain. neuro: axo3 , nonfocal. Objective Data Active Medications Acetaminophen (Acetaminophen 325 Mg Tablet) 975 mg PO Q8H [facility] Last Admin: 11/24/22 08:07 Dose: 975 mg Documented By: RASHAUN Amlodipine Besylate (Amlodipine Besylate 2.5 Mg Tablet) 2.5 mg PO DAILY [facility]; P rotocol Last Admin: 11/24/22 08:07 Dose: 2.5 mg Documented By: RASHAUN Bupropion HCl (Bupropion Hcl Xl 300 Mg Tab.Er.24h) 300 mg PO DAILY [facility] Last Admin: 11/24/22 08:08 Dose: 300 mg Documented By: RASHAUN Carvedilol (Carvedilol 12.5 Mg Tablet) 12.5 mg PO BID [facility]; Protocol Last Admin: 11/24/22 08:07 Dose: 12.5 mg Documented By: RASHAUN Cyanocobalamin (Cyanocobalamin (Vitamin B-12) 100 Mcg Tablet) 200 mcg PO DAILY [facility] Last Admin: 11/24/22 08:08 Dose: 200 mcg Documented By: RASHAUN Cyanocobalamin (Cyanocobalamin (Vitamin B-12) 1,000 Mcg Tablet) 2,000 mcg PO DAILY [facility] Last Admin: 11/24/22 08:06 Dose: 2,000 mcg Documented By: RASHAUN Cyclobenzaprine HCl (Cyclobenzaprine Hcl 10 Mg Tablet) 10 mg PO DAILY PRN PRN Reason: Muscle Spasm Last Admin: 11/23/22 08:19 Dose: 10 mg Documented By: VENECIA Dextrose (Dextrose 50 % 25 Gm/50 Ml Syringe) 25 gm IVPUSH Q15M PRN; Protocol PRN Reason: per Hypoglycemia Standing Ord. Dicyclomine HCl (Dicyclomine Hcl 10 Mg Capsule) 20 mg PO BID [facility] Last Admin: 11/24/22 08:08 Dose: 20 mg Documented By: RASHAUN Docusate Sodium (Docusate Sodium 100 Mg Capsule) 100 mg PO BEDTIME [facility] Last Admin: 11/23/22 21:11 Dose: 100 mg Documented By: MYNOR Doxazosin Mesylate (Doxazosin Mesylate 2 Mg Tablet) 4 mg PO DAILY [facility] Last Admin: 11/24/22 08:05 Dose: 4 mg Documented By: RASHAUN Enoxaparin Sodium (Enoxaparin Sodium 40 Mg/0.4 Ml Syringe) 40 mg SUBCUT Q24H [facility] Last Admin: 11/23/22 15:09 Dose: 40 mg Documented By: VENECIA Fluoxetine HCl (Fluoxetine Hcl 20 Mg Capsule) 60 mg PO DAILY [facility] Last Admin: 11/24/22 08:06 Dose: 60 mg Documented By: RASHAUN Gabapentin (Gabapentin 300 Mg Capsule) 300 mg PO BID [facility] Last Admin: 11/24/22 08:08 Dose: 300 mg Documented By: RASHAUN Glucose (Glucose Gel 15 Gm Gel..Gram.) 15 gm PO Q15M PRN; Protocol PRN Reason: per Hypoglycemia Standing Ord. Ceftriaxone Sodium 2 gm/ (Sodium Chloride) 50 mls @ 100 mls/hr IV Q24H [facility] Last Infusion: 11/23/22 11:25 Dose: 0 mls/hr Documented By: CHRISTINA Insulin Glargine (Insulin Glargine,Hum.Rec.Anlog 100 Unit/Ml 10 Ml Vial) 50 unit SUBCUT DAILY [facility] Last Admin: 11/24/22 08:24 Dose: 50 unit Documented By: RASHAUN Insulin Human Lispro (Insulin Lispro 100 Unit/Ml 3 Ml Vial) 0 unit SUBCUT QIDACHS [facility]; Protocol Last Admin: 11/24/22 08:10 Dose: 6 unit Documented By: RASHAUN Lidocaine (Lidocaine 4 % Patch Adh..Patch) 1 patch TRANSDERMA DAILY [facility]; Protocol Last Admin: 11/24/22 08:21 Dose: Not Given Documented By: RASHAUN Non-Admin Reason: Patient Refused Loratadine (Loratadine 10 Mg Tablet) 10 mg PO DAILY [facility] Last Admin: 11/24/22 08:05 Dose: 10 mg Documented By: RASHAUN Losartan Potassium (Losartan Potassium 50 Mg Tablet) 50 mg PO DAILY [facility]; Protocol Last Admin: 11/24/22 08:05 Dose: 50 mg Documented By: RASHAUN Multivitamins/Vitamin C (Multivitamin Tablet) 1 tab PO DAILY [facility] Last Admin: 11/24/22 08:08 Dose: 1 tab Documented By: RASHAUN Naproxen (Naproxen 500 Mg Tablet) 500 mg PO BID [facility] Last Admin: 11/24/22 08:07 Dose: 500 mg Documented By: RASHAUN Non-Formulary Medication (Rosuvastatin) 40 mg PO DAILY [facility] Omeprazole (Omeprazole 40 Mg Capsule.Dr) 40 mg PO DAILY [facility] Last Admin: 11/24/22 08:05 Dose: 40 mg Documented By: RASHAUN Oxybutynin Chloride (Oxybutynin Chloride Er 5 Mg Tab.Er.24) 15 mg PO DAILY [facility] Last Admin: 11/24/22 08:06 Dose: 15 mg Documented By: RASHAUN Pharmacy Consult (Consult Rx Vancomycin Dosing) 1 each MISCELLANE DAILY PRN PRN Reason: Consult order Polyethylene Glycol (Polyethylene Glycol 3350 17 Gm Powd.Pack) 17 gm PO DAILY [facility] Last Admin: 11/24/22 08:16 Dose: 17 gm Documented By: RASHAUN Psyllium Hydrophilic Mucilloid (Psyllium Seed 3.4 Gm Powd.Pack) 3.4 gm PO BID [facility] Last Admin: 11/24/22 08:17 Dose: 3.4 gm Documented By: RASHAUN Quetiapine Fumarate (Quetiapine Fumarate 25 Mg Tablet) 12.5 mg PO BEDTIME [facility] Last Admin: 11/22/22 21:05 Dose: 12.5 mg Documented By: RAMONORALB Quetiapine Fumarate (Quetiapine Fumarate 25 Mg Tablet) 25 mg PO DAILY [facility] Last Admin: 11/24/22 08:09 Dose: 25 mg Documented By: RASHAUN Sodium Biphosphate/Sodium Phosphate (Sodium Phosphate,[place]-Dibasic 133 Ml Enema) 133 ml [place] ONCE PRN PRN Reason: Constipation Sodium Chloride (0.9 % Sodium Chloride Flush 3 Ml Syringe) 3 ml IVFLUSH QSHIFT [facility] Last Admin: 11/24/22 08:19 Dose: 3 ml Documented By: RASHAUN Tamsulosin HCl (Tamsulosin Hcl 0.4 Mg Capsule) 0.8 mg PO BEDTIME [facility] Last Admin: 11/23/22 21:12 Dose: 0.8 mg Documented By: MYNOR Labs 11/23/22 05:25 11/24/22 06:14 Labs: Laboratory Results - last 24 hr 11/23/22 11/23/22 11/23/22 11:16 16:37 20:31 Estim Creat Clear Calc Estimated GFR POC Glucose 311 H 409 H* 378 H* 11/24/22 11/24/22 06:14 07:33 Estim Creat Clear Calc 232.1 Estimated GFR > 60 POC Glucose 281 H Microbiology Microbiology Results: Microbiology 11/21/22 12:48 Blood Culture - Preliminary Blood - Venous No growth after 48 hours. 11/21/22 12:47 Blood Culture - Preliminary Blood - Venous No growth after 48 hours. 11/20/22 23:18 Blood Culture - Final Blood - Venous Strep agalactiae (Grp B) 11/20/22 23:18 Blood Culture - Final Blood - Venous Strep agalactiae (Grp B) Assessment and Plan (1) Infected lesion of skin: Status: Acute (2) Morbidly obese: Status: Acute (3) Bacteremia: Status: Acute (4) Pressure ulcer, back, lower: Status: Acute (5) Constipation: Status: Acute (6) Streptococcus agalactiae infection: Status: Acute (7) Hyperglycemia: Status: Acute Plan 57-year-old male morbidly obese, hypertension, insulin-dependent , prostate cancer status post surgery in 2018 (?? Laser prostatectomy) and radiation, u rinary incontinence from 3-4 years, sleep apnea noncompliant with CPAP, ex- smoker:had fall , back ulcers ,bacteremia,?uti. ?sepsis: ?? Due to skin and skin structure infection/small wound on the back /possible strep aglacticae bacteremia In addition patient was to be having UTI recently-sent off with Keflex from [facility] which he did not yet started. Has leukocytosis of 12.2, no fever lactic acid normal, has bacteremia -strep aglacticae-senstive to ceftriaxone , repeat blood culture -neg@48hrs .? No fever or tachycardia or tachypnea continue? ceftriaxone,dc vancomycin sincestrep aglacticaex2 senstive to ceftriaxone id eval. Diabetes with hyperglycemia: Diabetic diet hemoglobin A1c- 9. adjusted lantus and fingerstick with sliding scale. Hyponatremia:?pseudohypanatremia due to hyperglycemia . ?Sleep apnea:? Patient is noncompliant with CPAP. HLP:? Continue statin. htn uncontrolled:? Continue? losartan and amlodipine. changed metoprolol to coreg for better blood pressure control. History of prostate cancer,?? Urinary retention versus incontinence: Continue home Flomax, terazosin. Anxiety:? Continue home anxiety regimen . Fall:mechnical,? Patient sent a he did not hit his head, no loss of consciousness knee soarness inprovin head xray-fine(unable to get head CT because could not tolerate and refused). knee xray -b/l arthtitis Toxic metabolic encephalopathy:? Probably the symptoms patient's is dosing including excessive sleepiness, and urinating but all places:? Probably related to excessive oxycodone use, decreased p.o. intake. does does not seem to be related to sepsis. Currently does not seem to be confused. ch pains : hold oxycodone , continue gabapentine ,flexril, added tylenol and lidociane patch. morbid obesity:? Encouraged to lose weight. back skin ulcers : turn frequent,wound care ,oob, ambulate. Generalize weakness and functional decline family unable to take care:? Added PT evaluation. Constipation: Added laxatives, enema if needed Pt-recomended str DVT prophylaxis:: With subQ Lovenox In patient need:? Sepsis/aglacticae bacteremia -need IV antibiotics-Id eval for further management and duration of antibiotics pendin,echo ,need dm with hyperglycemia monitoring and management,in addition has uncontrolled htn -needs blood pressure monitering and htn med adjustment. Time Spent With Patient Time: Total time managing care of this patient today ____ minutes. Quality Stroke Does the patient have a stroke diagnosis?: No VTE Prior VTE?: No VTE Risk Level:: Medical - moderate - high VTE Device Contraindication: N/A - Device Ordered VTE Drug Contraindication: N/A - Med Ordered
[2022-11-24] MEDS: cefTRIAXone sodium 2 GM in 0.9 % Sodium Chloride 50 ML IV (11:11)
[2022-11-24 11:16] LABS: Glucose, Whole Blood 262 mg/dL (60-115)
--- NOTE | 2022-11-24 12:00 | CA_ITS ---
Transthoracic Echocardiogram Patient (Last, First, Middle): Jermaine Castillo, Gender: Male Date of : 1965 Age: 57 Procedure Date: 11/24/2022 Procedure Type: Transthoracic Echocardiogram Location: S3E Height: 177.8 cm Weight: 214.55 kg BSA: 3.01 m2 Heart Rate: 83 bpm BP: 168 / 74 mmHg Deputy Assessor: OSIRIS Referring MD: Adilia Hardy MD Email Specialist: Tyrone Keith MD Symptoms: strep bacteremia Study Quality: Technically Difficult ECG Rhythm: Sinus Conclusions: - 1. Technically limited study 2. Vegetations cannot be ruled out on this study 3. Hyperdynamic LV systolic function with severe LVH with impaired relaxation filling pattern 4. No significant abnormalities of cardiac valvular Dopplers 5. Mildly dilated ascending aorta 3.8 cm Findings Procedure Information Contrast agent, definity, is being given per protocol without apparent complications. The quality of the study was technically difficult. The study quality is limited by patients body habitus. Left Ventricle The left ventricle was not well visualized. Normal left ventricular cavity size. There is severely increased left ventricular wall thickness. The left ventricular systolic function is hyperdynamic. The visually estimated ejection fraction is >70%. Spectral Doppler is indicative of an impaired relaxation filling pattern. Right Ventricle The right ventricle was not well visualized. Atria The left atrium was not well visualized. Interatrial shunt cannot be excluded. The right atrium was not well visualized. Aortic Valve The aortic valve was not well visualized. There is mild calcification of the aortic valve. There is moderate thickening of the aortic valve. There is no aortic valve stenosis. There is trace (trivial) aortic valve regurgitation. Mitral Valve Likely normal mitral valve structure and function. There is mild anterior mitral leaflet thickening. There is mild mitral annular calcification. There is no mitral valve stenosis. Pulmonic Valve The pulmonic valve was not well visualized. Tricuspid Valve The tricuspid valve was not well visualized. Great Vessels The pulmonary artery was not well visualized. There is mild dilatation of the ascending aorta measuring 3.80 cm. Venous The inferior vena cava is normal in size and collapses greater than 50% with inspiration. Pericardium/Pleural There is no evidence of pericardial effusion. Prior Study Comparison No prior study available for comparison. Measurements 2D Linear Measurements IVSd: 1.94 0.6-0.9/0.6-1.0 cm LVIDd: 5.54 3.9-5.3/4.2-5.9 cm LVIDd Index: 1.84 2.4-3.2/2.2-3.1 cm/m2 LVIDs: 3.31 2.0-3.6 cm LVPWd: 1.66 0.7-1.1 cm LA Diam: 4.20 2.7-3.8/3.0-4.0 cm LAIDs Index: 1.40 1.5-2.3 cm/m2 LV Mass: 617.26 67-162/88-224 g LV Mass Index: 205.07 43-95/49-115 g/m2 LVOT Diam: 2.70 3.0+(-)1.3 cm 2D Systolic Function EF 4C: 74.60 >55% EF 2C: 64.90 >55% EF BiP: 72.60 >55% Mitral Valve MV Pk E: 0.96 MV PK A: 0.89 MV Decel Time: 266.00 E/A: 1.10 E'Medial: 5.66 E/E' Med: 17.00 PHT: 78.00 MVA PHT: 2.82 Decel Robeson: 3.62 LVOT LVOT Pk Cheng: 1.03 LVOT Mn Cheng: 0.75 LVOT VTI: 0.19 LVOT Pk Grad: 4.00 LVOT Mn Grad: 3.00 LVOT Diam: 2.70 LVOT Area: 5.73 Diastolic Function MV Pk E: 0.96 MV Pk A: 0.89 E/A: 1.10 E'Medial: 5.66 E/E' Med: 17.00 Right Ventricle TAPSE (mm): 31.90 TVS' Cheng: 21.60 Tricuspid Valve RA Press: 3.00 Great Vessels Aorta Sinus of Valsalva: 4.20 2.0-3.5 cm Ao Asc: 3.80 2.1-3.4 cm Pulmonary Valve PV Pk Cheng: 1.01 Peak PV Grad: 4.00 Updated in Other Vendor System with Status of Final Tyrone Keith MD electronically signed on 11/24/2022 4:18:43 PM with status of Final
--- NOTE | 2022-11-24 13:16 | MHC.CLN ---
NUTRITION PATIENT WITH INCREASED NUTRITION NEEDS DUE TO STAGE II AND STAGE III PRESSURE INJURIES. INCREASING DIETARY KCALS TO DM 2000 KCALS. ADDING ENSURE MAX PROTEIN BID (300 KCALS, 60 G PROTEIN). FOLLOW FOR INTAKE AND WOUND HEALING.
[2022-11-24 13:26] VITALS: BMI 68.0
--- NOTE | 2022-11-24 13:48 | P.CNID_ITS ---
History of Present Illness Data of Consult Service Date: 11/24/22 Requesting physician: Adilia Hardy Primary Care Provider: Holden Koo NP HPI Reason for consult: bacteremia He presents with right sided flank pain 6/10 for two days. He has no fever or chills. He has Group B strep bacteremia Urinalysis is negative. Review of Systems Review of Systems: Yes all other systems are reviewed and are negative PMFSH Past Medical History Medical History Diabetes [place] War syndrome Prostate cancer PTSD (post-traumatic stress disorder) Family History Family history: reviewed and not pertinent Surgical History Surgical History History of back surgery History of prostate surgery Social History Social History Household Members: Family Housing: House Unable to assess alcohol history related to: Unknown Alcohol intake: never Patient Tobacco Use Status: Former Tobacco user service: Yes Current occupational status: employed Meds Allergies Allergy/AdvReac Type Severity Reaction Status Date / Time strawberry [STRAWBERRY] Allergy Severe ANAPHYLAXIS Verified 09/09/20 10:53 aspirin [ASPIRIN] Allergy Unknown SIBLINGS Verified 09/09/20 10:53 WITH BLOOD DISORDER atorvastatin [ATORVASTATIN] Allergy Unknown RASH, Verified 09/09/20 10:53 SWELLING fenofibrate [FENOFIBRATE] Allergy Unknown RASH, Verified 09/09/20 10:53 SWELLING lisinopril [LISINOPRIL] Allergy Unknown RASH,SWELLI Verified 09/09/20 10:53 NG niacin Allergy Unknown RASH,SWELLI Verified 09/09/20 10:53 [From NIASPAN NG EXTENDED-RELEASE] [place] (Diagnostic) Allergy Unknown Unknown Uncoded 09/09/20 10:53 Active Medications: Current Medications Acetaminophen (Acetaminophen 325 Mg Tablet) 975 mg PO Q8H JAEL Last Admin: 11/24/22 08:07 Dose: 975 mg Amlodipine Besylate (Amlodipine Besylate 2.5 Mg Tablet) 2.5 mg PO DAILY JAEL; Protocol Last Admin: 11/24/22 08:07 Dose: 2.5 mg Bupropion HCl (Bupropion Hcl Xl 300 Mg Tab.Er.24h) 300 mg PO DAILY JAEL Last Admin: 11/24/22 08:08 Dose: 300 mg Carvedilol (Carvedilol 12.5 Mg Tablet) 12.5 mg PO BID [facility]; Protocol Last Admin: 11/24/22 08:07 Dose: 12.5 mg Cyanocobalamin (Cyanocobalamin (Vitamin B-12) 100 Mcg Tablet) 200 mcg PO DAILY [facility] Last Admin: 11/24/22 08:08 Dose: 200 mcg Cyanocobalamin (Cyanocobalamin (Vitamin B-12) 1,000 Mcg Tablet) 2,000 mcg PO DAILY [facility] Last Admin: 11/24/22 08:06 Dose: 2,000 mcg Cyclobenzaprine HCl (Cyclobenzaprine Hcl 10 Mg Tablet) 10 mg PO DAILY PRN PRN Reason: Muscle Spasm Last Admin: 11/23/22 08:19 Dose: 10 mg Dextrose (Dextrose 50 % 25 Gm/50 Ml Syringe) 25 gm IVPUSH Q15M PRN; Protocol PRN Reason: per Hypoglycemia Standing Ord. Dicyclomine HCl (Dicyclomine Hcl 10 Mg Capsule) 20 mg PO BID [facility] Last Admin: 11/24/22 08:08 Dose: 20 mg Docusate Sodium (Docusate Sodium 100 Mg Capsule) 100 mg PO BEDTIME [facility] Last Admin: 11/23/22 21:11 Dose: 100 mg Doxazosin Mesylate (Doxazosin Mesylate 2 Mg Tablet) 4 mg PO DAILY [facility] Last Admin: 11/24/22 08:05 Dose: 4 mg Enoxaparin Sodium (Enoxaparin Sodium 40 Mg/0.4 Ml Syringe) 40 mg SUBCUT Q24H [facility] Last Admin: 11/23/22 15:09 Dose: 40 mg Fluoxetine HCl (Fluoxetine Hcl 20 Mg Capsule) 60 mg PO DAILY [facility] Last Admin: 11/24/22 08:06 Dose: 60 mg Gabapentin (Gabapentin 300 Mg Capsule) 300 mg PO BID [facility] Last Admin: 11/24/22 08:08 Dose: 300 mg Glucose (Glucose Gel 15 Gm Gel..Gram.) 15 gm PO Q15M PRN; Protocol PRN Reason: per Hypoglycemia Standing Ord. Ceftriaxone Sodium 2 gm/ (Sodium Chloride) 50 mls @ 100 mls/hr IV Q24H [facility] Last Infusion: 11/24/22 11:44 Dose: Infused Insulin Glargine (Insulin Glargine,Hum.Rec.Anlog 100 Unit/Ml 10 Ml Vial) 50 unit SUBCUT DAILY [facility] Last Admin: 11/24/22 08:24 Dose: 50 unit Insulin Human Lispro (Insulin Lispro 100 Unit/Ml 3 Ml Vial) 0 unit SUBCUT QIDACHS [facility]; Protocol Last Admin: 11/24/22 12:14 Dose: 6 unit Lidocaine (Lidocaine 4 % Patch Adh..Patch) 1 patch TRANSDERMA DAILY [facility]; Protocol Last Admin: 11/24/22 08:21 Dose: Not Given Loratadine (Loratadine 10 Mg Tablet) 10 mg PO DAILY [facility] Last Admin: 11/24/22 08:05 Dose: 10 mg Losartan Potassium (Losartan Potassium 50 Mg Tablet) 50 mg PO DAILY [facility]; Protocol Last Admin: 11/24/22 08:05 Dose: 50 mg Multivitamins/Vitamin C (Multivitamin Tablet) 1 tab PO DAILY [facility] Last Admin: 11/24/22 08:08 Dose: 1 tab Naproxen (Naproxen 500 Mg Tablet) 500 mg PO BID [facility] Last Admin: 11/24/22 08:07 Dose: 500 mg Non-Formulary Medication (Rosuvastatin) 40 mg PO DAILY [facility] Omeprazole (Omeprazole 40 Mg Capsule.Dr) 40 mg PO DAILY [facility] Last Admin: 11/24/22 08:05 Dose: 40 mg Oxybutynin Chloride (Oxybutynin Chloride Er 5 Mg Tab.Er.24) 15 mg PO DAILY [facility] Last Admin: 11/24/22 08:06 Dose: 15 mg Pharmacy Consult (Consult Rx Vancomycin Dosing) 1 each MISCELLANE DAILY PRN PRN Reason: Consult order Polyethylene Glycol (Polyethylene Glycol 3350 17 Gm Powd.Pack) 17 gm PO DAILY [facility] Last Admin: 11/24/22 08:16 Dose: 17 gm Psyllium Hydrophilic Mucilloid (Psyllium Seed 3.4 Gm Powd.Pack) 3.4 gm PO BID [facility] Last Admin: 11/24/22 08:17 Dose: 3.4 gm Quetiapine Fumarate (Quetiapine Fumarate 25 Mg Tablet) 12.5 mg PO BEDTIME [facility] Last Admin: 11/22/22 21:05 Dose: 12.5 mg Quetiapine Fumarate (Quetiapine Fumarate 25 Mg Tablet) 25 mg PO DAILY [facility] Last Admin: 11/24/22 08:09 Dose: 25 mg Sodium Biphosphate/Sodium Phosphate (Sodium Phosphate,[place]-Dibasic 133 Ml Enema) 133 ml [place] ONCE PRN PRN Reason: Constipation Sodium Chloride (0.9 % Sodium Chloride Flush 3 Ml Syringe) 3 ml IVFLUSH QSHIFT [facility] Last Admin: 11/24/22 08:19 Dose: 3 ml Tamsulosin HCl (Tamsulosin Hcl 0.4 Mg Capsule) 0.8 mg PO BEDTIME [facility] Last Admin: 11/23/22 21:12 Dose: 0.8 mg Home Medications Medication Instructions Recorded Confirmed Last Taken Type acetaminophen 650 mg tablet 650 mg PO Q4H PRN Pain 11/21/22 11/21/22 Unknown History bupropion HCl 150 mg tablet,12 hr 150 mg PO BID 11/21/22 11/21/22 Unknown History sustained-release (Wellbutrin SR) cyanocobalamin (vitamin B-12) 500 2,000 mcg PO DAILY 11/21/22 11/21/22 Unknown History mcg tablet cyclobenzaprine 10 mg tablet 10 mg PO DAILY PRN Muscle Spasm 11/21/22 11/21/22 Unknown History dicyclomine 20 mg tablet 20 mg PO BID 11/21/22 11/21/22 Unknown History fluoxetine 60 mg tablet 60 mg PO DAILY 11/21/22 11/21/22 Unknown History gabapentin 300 mg capsule 300 mg PO BID 11/21/22 11/21/22 Unknown History insulin aspart (niacinamide) 1 - 4 sliding scale dose subcut 11/21/22 11/21/22 Unknown History (U-100) 100 unit/mL subcutaneous TIDAC solution insulin glargine 100 unit/mL 45 unit subcut DAILY 11/21/22 11/21/22 Unknown History subcutaneous cartridge loratadine 10 mg tablet 10 mg PO DAILY 11/21/22 11/21/22 Unknown History losartan 50 mg tablet 50 mg PO DAILY 11/21/22 11/21/22 Unknown History meloxicam 15 mg tablet 15 mg PO DAILY 11/21/22 11/21/22 Unknown History metoprolol tartrate 50 mg tablet 50 mg PO BID 11/21/22 11/21/22 Unknown History multivitamin with minerals 1 tab PO DAILY 11/21/22 11/21/22 Unknown History omega-3 fatty acids 500 mg capsule 1,000 mg PO DAILY 11/21/22 11/21/22 Unknown History omeprazole 40 mg capsule,delayed 40 mg PO DAILY 11/21/22 11/21/22 Unknown History release oxybutynin chloride 15 mg 15 mg PO DAILY 11/21/22 11/21/22 Unknown History tablet,extended release 24 hr oxycodone-acetaminophen 5 mg-325 2 tab PO BID PRN Pain 11/21/22 11/21/22 Unknown History mg tablet psyllium 2 tsp PO BID 11/21/22 11/21/22 Unknown History quetiapine 25 mg tablet 12.5 mg PO BEDTIME 11/21/22 11/21/22 Unknown History quetiapine 25 mg tablet 25 mg PO QAM 11/21/22 11/21/22 Unknown History rosuvastatin 40 mg tablet 40 mg PO DAILY 11/21/22 11/21/22 Unknown History sildenafil 100 mg tablet 100 mg PO DAILY PRN Sexual Activity 11/21/22 11/21/22 Unknown History tamsulosin 0.4 mg capsule 0.8 mg PO BEDTIME 11/21/22 11/21/22 Unknown History terazosin 2 mg capsule 4 mg PO DAILY 11/21/22 11/21/22 Unknown History Physical Exam Vital Signs: Vital Signs: Last Vital Signs Temp 97.2 F 11/24/22 07:23 Pulse 78 11/24/22 07:23 Resp 20 11/24/22 07:23 BP 168/74 H 11/24/22 07:23 Pulse Ox 96 11/24/22 07:23 O2 Del Method 11/24/22 07:23 O2 Flow Rate 2 11/22/22 15:09 BMI result Body Mass Index 68.0 Const: General: cooperative HEENT: Head: Yes normal to inspection Face and sinus: Yes normal facial exam Mouth: Normal oral and palatal mucosa present Teeth and gingiva: dentition normal Eyes: General: appearance normal, both eyes and all related structures Pupils: Equal, round and reactive pupils present Resp: Effort & Inspection: normal respiratory effort Cardio: Rate: regular rate Rhythm: regular rhythm GI: Palpation (GI): Soft to palpation and nontender : General: Yes no CVA tenderness Back/Spine/Pelvis: Back: no CVA tenderness Skin: General skin exam: no rashes or lesions noted Neuro: General: moves all extremities Cranial nerves: Yes Equal, round and reactive pupils present Extrem: Other: mild erythema bilateral legs Psych: Appearance: grossly normal Results Labs 11/23/22 05:25 11/24/22 06:14 Labs: BMP 11/24/22 06:14 Creatinine 0.66 Microbiology Microbiology Results: Microbiology 11/21/22 12:48 Blood - Venous Blood Culture - Preliminary No growth after 48 hours. 11/21/22 12:47 Blood - Venous Blood Culture - Preliminary No growth after 48 hours. 11/20/22 23:18 Blood - Venous Blood Culture - Final Strep agalactiae (Grp B) 11/20/22 23:18 Blood - Venous Blood Culture - Final Strep agalactiae (Grp B) Assessment and Plan (1) Streptococcus agalactiae infection: Status: Acute He has probable skin source of Group B strep infection He has no urinary symptoms He is feeling improved (2) Fall: Status: Acute Plan Continue Ceftriaxone Check echo. If no endocarditis switch to po Ceftin 500 mg complete 14 days treatment. Time Spent With Patient Time: Total time managing care of this patient today ____ minutes.
[2022-11-24 16:22] VITALS: BP 159/91; PULSE 84; RESP 24; TEMP 36.1; O2SAT 95
[2022-11-24 16:53] LABS: Glucose, Whole Blood 235 mg/dL (60-115)
[2022-11-24] MEDS: Enoxaparin Sodium 40 MG/0.4 ML SYRINGE SUBCUT (17:08)
[2022-11-24 19:33] VITALS: BP 177/76; PULSE 84; RESP 24; TEMP 36.1; O2SAT 96
[2022-11-24 20:52] LABS: Glucose, Whole Blood 338 mg/dL (60-115)
[2022-11-24] MEDS: Tamsulosin HCL 0.4 MG CAPSULE 0.8 MG PO (21:38)
[2022-11-24] MEDS: Docusate Sodium 100 MG CAPSULE PO (21:39)
[2022-11-24] MEDS: QUEtiapine Fumarate 25 MG TABLET 12.5 MG PO (21:40)
--- NOTE | 2022-11-24 23:02 | PC.RT ---
Pt refusing CPAP at this time RN aware; placing pt on NOC o2 2L NC
[2022-11-25] MEDS: Acetaminophen 325 MG TABLET 975 MG PO ×4 (00:36→23:15)
[2022-11-25 03:14] VITALS: BP 168/60; PULSE 80; RESP 18; TEMP 36.3; O2SAT 97
[2022-11-25 06:46] LABS: Creatinine Clr Calc Pharmacy 243.2; Estimated Glomerular Filt Rate > 60
[2022-11-25] MEDS: polyethylene glycoL 3350 17 GM POWD.PACK PO (07:20)
[2022-11-25] MEDS: Cyanocobalamin (Vitamin B-12) 100 MCG TABLET 200 MCG PO (07:20)
[2022-11-25] MEDS: Gabapentin 300 MG CAPSULE PO ×2 (07:20→20:44)
[2022-11-25] MEDS: carvediloL 12.5 MG TABLET PO ×2 (07:21→20:44)
[2022-11-25] MEDS: oxyBUTYnin chloride ER 5 MG TAB.ER.24 15 MG PO (07:21)
[2022-11-25] MEDS: buPROPion HCl XL 300 MG TAB.ER.24H PO (07:21)
[2022-11-25] MEDS: Losartan Potassium 50 MG TABLET PO (07:21)
[2022-11-25] MEDS: Omeprazole 40 MG CAPSULE.DR PO (07:21)
[2022-11-25] MEDS: Cyanocobalamin (Vitamin B-12) 1,000 MCG TABLET 2000 MCG PO (07:21)
[2022-11-25] MEDS: Multivitamin TABLET 1 TAB PO (07:22)
[2022-11-25] MEDS: Dicyclomine HCl 10 MG CAPSULE 20 MG PO ×2 (07:22→20:43)
[2022-11-25] MEDS: QUEtiapine Fumarate 25 MG TABLET PO (07:22)
[2022-11-25] MEDS: amLODIPine Besylate 2.5 MG TABLET PO (07:22)
[2022-11-25] MEDS: FLUoxetine HCl 20 MG CAPSULE 60 MG PO (07:22)
[2022-11-25] MEDS: Loratadine 10 MG TABLET PO (07:23)
[2022-11-25] MEDS: NaPROXEN 500 MG TABLET PO ×2 (07:23→20:44)
[2022-11-25] MEDS: Doxazosin Mesylate 2 MG TABLET 4 MG PO (07:23)
[2022-11-25] MEDS: 0.9 % Sodium Chloride Flush 3 ML SYRINGE IVFLUSH ×2 (07:23→20:45)
[2022-11-25 07:45] VITALS: BP 143/70; PULSE 78; RESP 20; TEMP 36.3; O2SAT 96
[2022-11-25 07:51] LABS: Glucose, Whole Blood 356 mg/dL (60-115)
[2022-11-25] MEDS: Insulin Glargine,Hum.rec.anlog 100 UNIT/ML 10 ML VIAL 50 UNIT SUBCUT (08:31)
[2022-11-25] MEDS: Insulin Lispro 100 UNIT/ML 3 ML VIAL SUBCUT ×8 (08:32→21:05)
--- NOTE | 2022-11-25 09:57 | P.PNIM_ITS ---
Subjective Subjective Date of Service: 11/25/22 Interval History: strep algatcae bacteremia, uncontrolled htn, constipation Review of Systems denies any chest pain or sob or nausea or vomitin still constipated ,no abd pain ,passing gases Physical Exam Vital Signs: Vital Signs: Last Vital Signs Temp 97.4 F 11/25/22 07:45 Pulse 78 11/25/22 07:45 Resp 20 11/25/22 07:45 BP 143/70 H 11/25/22 07:45 Pulse Ox 96 11/25/22 07:45 O2 Del Method 11/25/22 07:45 O2 Flow Rate 2 11/22/22 15:09 BMI result Body Mass Index 68.0 Appearing in no acute distress lung sounds are clear to auscultation heart regular rate rhythm, clear S1, S2 positive bowel sounds, abdomen is soft, nontender neuro patient is alert x3, no focal deficits Objective Data Active Medications Acetaminophen (Acetaminophen 325 Mg Tablet) 975 mg PO Q8H [facility] Last Admin: 11/25/22 07:21 Dose: 975 mg Documented By: TIO Amlodipine Besylate (Amlodipine Besylate 2.5 Mg Tablet) 2.5 mg PO DAILY [facility]; Protocol Last Admin: 11/25/22 07:22 Dose: 2.5 mg Documented By: TIO Bupropion HCl (Bupropion Hcl Xl 300 Mg Tab.Er.24h) 300 mg PO DAILY [facility] Last Admin: 11/25/22 07:21 Dose: 300 mg Documented By: TIO Carvedilol (Carvedilol 12.5 Mg Tablet) 12.5 mg PO BID [facility]; Protocol Last Admin: 11/25/22 07:21 Dose: 12.5 mg Documented By: TIO Cyanocobalamin (Cyanocobalamin (Vitamin B-12) 100 Mcg Tablet) 200 mcg PO DAILY [facility] Last Admin: 11/25/22 07:20 Dose: 200 mcg Documented By: TIO Cyanocobalamin (Cyanocobalamin (Vitamin B-12) 1,000 Mcg Tablet) 2,000 mcg PO DAILY [facility] Last Admin: 11/25/22 07:21 Dose: 2,000 mcg Documented By: TIO Cyclobenzaprine HCl (Cyclobenzaprine Hcl 10 Mg Tablet) 10 mg PO DAILY PRN PRN Reason: Muscle Spasm Last Admin: 11/23/22 08:19 Dose: 10 mg Documented By: VENECIA Dextrose (Dextrose 50 % 25 Gm/50 Ml Syringe) 25 gm IVPUSH Q15M PRN; Protocol PRN Reason: per Hypoglycemia Standing Ord. Dicyclomine HCl (Dicyclomine Hcl 10 Mg Capsule) 20 mg PO BID [facility] Last Admin: 11/25/22 07:22 Dose: 20 mg Documented By: TIO Docusate Sodium (Docusate Sodium 100 Mg Capsule) 100 mg PO BEDTIME [facility] Last Admin: 11/24/22 21:39 Dose: 100 mg Documented By: RASHAUN Doxazosin Mesylate (Doxazosin Mesylate 2 Mg Tablet) 4 mg PO DAILY [facility] Last Admin: 11/25/22 07:23 Dose: 4 mg Documented By: TIO Enoxaparin Sodium (Enoxaparin Sodium 40 Mg/0.4 Ml Syringe) 40 mg SUBCUT Q24H [facility] Last Admin: 11/24/22 17:08 Dose: 40 mg Documented By: RASHAUN Fluoxetine HCl (Fluoxetine Hcl 20 Mg Capsule) 60 mg PO DAILY [facility] Last Admin: 11/25/22 07:22 Dose: 60 mg Documented By: TIO Gabapentin (Gabapentin 300 Mg Capsule) 300 mg PO BID [facility] Last Admin: 11/25/22 07:20 Dose: 300 mg Documented By: TIO Glucose (Glucose Gel 15 Gm Gel..Gram.) 15 gm PO Q15M PRN; Protocol PRN Reason: per Hypoglycemia Standing Ord. Ceftriaxone Sodium 2 gm/ (Sodium Chloride) 50 mls @ 100 mls/hr IV Q24H [facility] Last Infusion: 11/24/22 11:44 Dose: 0 mls/hr Documented By: RASHAUN Insulin Glargine (Insulin Glargine,Hum.Rec.Anlog 100 Unit/Ml 10 Ml Vial) 50 unit SUBCUT DAILY [facility] Last Admin: 11/25/22 08:31 Dose: 50 unit Documented By: TIO Insulin Human Lispro (Insulin Lispro 100 Unit/Ml 3 Ml Vial) 0 unit SUBCUT QIDACHS [facility]; Protocol Last Admin: 11/25/22 08:33 Dose: 12 unit Documented By: TIO Insulin Human Lispro (Insulin Lispro 100 Unit/Ml 3 Ml Vial) 5 unit SUBCUT QIDACHS [facility] Last Admin: 11/25/22 08:32 Dose: 5 unit Documented By: TIO Lidocaine (Lidocaine 4 % Patch Adh..Patch) 1 patch TRANSDERMA DAILY [facility]; Protocol Last Admin: 11/25/22 08:22 Dose: Not Given Documented By: TIO Non-Admin Reason: Patient Refused Loratadine (Loratadine 10 Mg Tablet) 10 mg PO DAILY [facility] Last Admin: 11/25/22 07:23 Dose: 10 mg Documented By: TIO Losartan Potassium (Losartan Potassium 50 Mg Tablet) 50 mg PO DAILY [facility]; Protocol Last Admin: 11/25/22 07:21 Dose: 50 mg Documented By: TIO Multivitamins/Vitamin C (Multivitamin Tablet) 1 tab PO DAILY [facility] Last Admin: 11/25/22 07:22 Dose: 1 tab Documented By: TIO Naproxen (Naproxen 500 Mg Tablet) 500 mg PO BID [facility] Last Admin: 11/25/22 07:23 Dose: 500 mg Documented By: TIO Non-Formulary Medication (Rosuvastatin) 40 mg PO DAILY [facility] Omeprazole (Omeprazole 40 Mg Capsule.Dr) 40 mg PO DAILY [facility] Last Admin: 11/25/22 07:21 Dose: 40 mg Documented By: TIO Oxybutynin Chloride (Oxybutynin Chloride Er 5 Mg Tab.Er.24) 15 mg PO DAILY [facility] Last Admin: 11/25/22 07:21 Dose: 15 mg Documented By: TIO Pharmacy Consult (Consult Rx Vancomycin Dosing) 1 each MISCELLANE DAILY PRN PRN Reason: Consult order Polyethylene Glycol (Polyethylene Glycol 3350 17 Gm Powd.Pack) 17 gm PO DAILY [facility] Last Admin: 11/25/22 07:20 Dose: 17 gm Documented By: TIO Psyllium Hydrophilic Mucilloid (Psyllium Seed 3.4 Gm Powd.Pack) 3.4 gm PO BID [facility] Last Admin: 11/25/22 07:20 Dose: 3.4 gm Documented By: TIO Quetiapine Fumarate (Quetiapine Fumarate 25 Mg Tablet) 12.5 mg PO BEDTIME [facility] Last Admin: 11/24/22 21:40 Dose: 12.5 mg Documented By: RASHAUN Quetiapine Fumarate (Quetiapine Fumarate 25 Mg Tablet) 25 mg PO DAILY [facility] Last Admin: 11/25/22 07:22 Dose: 25 mg Documented By: TIO Sodium Biphosphate/Sodium Phosphate (Sodium Phosphate,[place]-Dibasic 133 Ml Enema) 133 ml [place] ONCE PRN PRN Reason: Constipation Sodium Chloride (0.9 % Sodium Chloride Flush 3 Ml Syringe) 3 ml IVFLUSH QSHIFT [facility] Last Admin: 11/25/22 07:23 Dose: 3 ml Documented By: TIO Tamsulosin HCl (Tamsulosin Hcl 0.4 Mg Capsule) 0.8 mg PO BEDTIME [facility] Last Admin: 11/24/22 21:38 Dose: 0.8 mg Documented By: KODOSOB Labs 11/23/22 05:25 11/25/22 06:05 Labs: Laboratory Results - last 24 hr 11/24/22 11/24/22 11/24/22 10:56 16:46 20:48 Estim Creat Clear Calc Estimated GFR POC Glucose 262 H 235 H 338 H 11/25/22 11/25/22 06:05 07:43 Estim Creat Clear Calc 243.2 Estimated GFR > 60 POC Glucose 356 H* Assessment and Plan (1) Infected lesion of skin: Status: Acute (2) Morbidly obese: Status: Acute (3) Bacteremia: Status: Acute (4) Pressure ulcer, back, lower: Status: Acute (5) Constipation: Status: Acute (6) Streptococcus agalactiae infection: Status: Acute (7) Hyperglycemia: Status: Acute Plan 57-year-old male morbidly obese, hypertension, insulin-dependent , prostate cancer status post surgery in 2018 (?? Laser prostatectomy) and radiation, urinary incontinence from 3-4 years, sleep apnea noncompliant with CPAP, ex- smoker:had fall , back ulcers ,bacteremia,?uti. Strep aglacticae bacteremia sensitive to ceftriaxone , repeat blood culture -neg@48hrs .? No fever or tachycardia or tachypnea Currently on Rocephin Echocardiogram unable to rule out vegetation therefore patient will need ROB Diabetes with hyperglycemia Diabetic diet hemoglobin A1c- 9. adjusted lantus and fingerstick with sliding scale. Hyponatremia. Resolved pseudohypanatremia due to hyperglycemia . Obstructive sleep apnea Patient not compliant with CPAP Hyperlipidemia Statin HTN uncontrolled Continue? losartan and amlodipine. changed metoprolol to coreg for better blood pressure control. History of prostate cancer,?? Urinary retention versus incontinence Continue home Flomax, terazosin. Anxiety Continue home anxiety regimen . Mechanical fall head xray-fine(unable to get head CT because could not tolerate and refused). knee xray -b/l arthritis Toxic metabolic encephalopathy. Resolved Probably related to excessive oxycodone use, decreased p.o. intake. Not related to sepsis morbid obesity. BMI 60.0 Discussed importance of weight management as this may be contributing to worsening of other comorbidities back skin ulcers turn frequent,wound care ,oob, ambulate. Generalize weakness and functional decline family unable to take care Added PT evaluation. Constipation Added laxatives, enema if needed DVT prophylaxis with subQ Lovenox Inpatient need:? Sepsis/aglacticae bacteremia -need IV antibiotics-Id eval for further management and duration of antibiotics pendin,echo ,need dm with hyperglycemia monitoring and management,in addition has uncontrolled htn -needs blood pressure monitering and htn med adjustment. Time Spent With Patient Time: Total time managing care of this patient today ____ minutes. Quality Stroke Does the patient have a stroke diagnosis?: No VTE Prior VTE?: No VTE Risk Level:: Medical - moderate - high VTE Device Contraindication: N/A - Device Ordered VTE Drug Contraindication: N/A - Med Ordered
--- NOTE | 2022-11-25 10:09 | P.CONWO_ITS ---
History of Present Illness Data of Consult Service Date: 11/25/22 Requesting physician: Adilia Hardy Primary Care Provider: Holden Koo NP HPI Reason for consult: left buttock ulcer [id number]: 57-year-old tall gentleman who was treated and released from [facility] before arriving here for abdominal pain. He was thought to have a urinary tract infection. He presented to [facility] on the 22 of November with a ?infected skin lesion?. Has comorbid obstructive sleep apnea and hypertension. He is on IV ceftriaxone. Endocarditis is being worked up because he has strep species bacteremia. Infectious Disease has opined. He has a history of prostate cancer with radiation treatment within the last 3 years. He has chronic back pain. Left buttock ulcer is not particularly painful. It is unclear if it is playing a role in current condition. Review of Systems Review of Systems: No fevers, chills or rigors. No chest pain or shortness of breath. No pain in the left buttock ulcer but difficult to say because he has chronic back pain that radiates to his left buttock. Denies difficulties with urine and stool. COUNT INCLUDES THE [facility] Medical History Diabetes [place] War syndrome Prostate cancer PTSD (post-traumatic stress disorder) Surgical History History of back surgery History of prostate surgery Social History Household Members: Family Housing: House Unable to assess alcohol history related to: Unknown Alcohol intake: never Patient Tobacco Use Status: Former Tobacco user service: Yes Current occupational status: employed Meds Allergies Allergy/AdvReac Type Severity Reaction Status Date / Time strawberry [STRAWBERRY] Allergy Severe ANAPHYLAXIS Verified 09/09/20 10:53 aspirin [ASPIRIN] Allergy Unknown SIBLINGS Verified 09/09/20 10:53 WITH BLOOD DISORDER atorvastatin [ATORVASTATIN] Allergy Unknown RASH, Verified 09/09/20 10:53 SWELLING fenofibrate [FENOFIBRATE] Allergy Unknown RASH, Verified 09/09/20 10:53 SWELLING lisinopril [LISINOPRIL] Allergy Unknown RASH,SWELLI Verified 09/09/20 10:53 NG niacin Allergy Unknown RASH,SWELLI Verified 09/09/20 10:53 [From JO EXTENDED-RELEASE] [place] (Diagnostic) Allergy Unknown Unknown Uncoded 09/09/20 10:53 Active Medications: Current Medications Acetaminophen (Acetaminophen 325 Mg Tablet) 975 mg PO Q8H [facility] Last Admin: 11/25/22 07:21 Dose: 975 mg Amlodipine Besylate (Amlodipine Besylate 2.5 Mg Tablet) 2.5 mg PO DAILY [facility]; Protocol Last Admin: 11/25/22 07:22 Dose: 2.5 mg Bupropion HCl (Bupropion Hcl Xl 300 Mg Tab.Er.24h) 300 mg PO DAILY [facility] Last Admin: 11/25/22 07:21 Dose: 300 mg Carvedilol (Carvedilol 12.5 Mg Tablet) 12.5 mg PO BID [facility]; Protocol Last Admin: 11/25/22 07:21 Dose: 12.5 mg Cyanocobalamin (Cyanocobalamin (Vitamin B-12) 100 Mcg Tablet) 200 mcg PO DAILY [facility] Last Admin: 11/25/22 07:20 Dose: 200 mcg Cyanocobalamin (Cyanocobalamin (Vitamin B-12) 1,000 Mcg Tablet) 2,000 mcg PO DAILY [facility] Last Admin: 11/25/22 07:21 Dose: 2,000 mcg Cyclobenzaprine HCl (Cyclobenzaprine Hcl 10 Mg Tablet) 10 mg PO DAILY PRN PRN Reason: Muscle Spasm Last Admin: 11/23/22 08:19 Dose: 10 mg Dextrose (Dextrose 50 % 25 Gm/50 Ml Syringe) 25 gm IVPUSH Q15M PRN; Protocol PRN Reason: per Hypoglycemia Standing Ord. Dicyclomine HCl (Dicyclomine Hcl 10 Mg Capsule) 20 mg PO BID [facility] Last Admin: 11/25/22 07:22 Dose: 20 mg Docusate Sodium (Docusate Sodium 100 Mg Capsule) 100 mg PO BEDTIME JAEL Last Admin: 11/24/22 21:39 Dose: 100 mg Doxazosin Mesylate (Doxazosin Mesylate 2 Mg Tablet) 4 mg PO DAILY [facility] Last Admin: 11/25/22 07:23 Dose: 4 mg Enoxaparin Sodium (Enoxaparin Sodium 40 Mg/0.4 Ml Syringe) 40 mg SUBCUT Q24H [facility] Last Admin: 11/24/22 17:08 Dose: 40 mg Fluoxetine HCl (Fluoxetine Hcl 20 Mg Capsule) 60 mg PO DAILY [facility] Last Admin: 11/25/22 07:22 Dose: 60 mg Gabapentin (Gabapentin 300 Mg Capsule) 300 mg PO BID [facility] Last Admin: 11/25/22 07:20 Dose: 300 mg Glucose (Glucose Gel 15 Gm Gel..Gram.) 15 gm PO Q15M PRN; Protocol PRN Reason: per Hypoglycemia Standing Ord. Ceftriaxone Sodium 2 gm/ (Sodium Chloride) 50 mls @ 100 mls/hr IV Q24H [facility] Last Infusion: 11/24/22 11:44 Dose: Infused Insulin Glargine (Insulin Glargine,Hum.Rec.Anlog 100 Unit/Ml 10 Ml Vial) 50 unit SUBCUT DAILY [facility] Last Admin: 11/25/22 08:31 Dose: 50 unit Insulin Human Lispro (Insulin Lispro 100 Unit/Ml 3 Ml Vial) 0 unit SUBCUT QIDACHS [facility]; Protocol Last Admin: 11/25/22 08:33 Dose: 12 unit Insulin Human Lispro (Insulin Lispro 100 Unit/Ml 3 Ml Vial) 5 unit SUBCUT QIDACHS [facility] Last Admin: 11/25/22 08:32 Dose: 5 unit Lidocaine (Lidocaine 4 % Patch Adh..Patch) 1 patch TRANSDERMA DAILY [facility]; Protocol Last Admin: 11/25/22 08:22 Dose: Not Given Loratadine (Loratadine 10 Mg Tablet) 10 mg PO DAILY [facility] Last Admin: 11/25/22 07:23 Dose: 10 mg Losartan Potassium (Losartan Potassium 50 Mg Tablet) 50 mg PO DAILY [facility]; Protocol Last Admin: 11/25/22 07:21 Dose: 50 mg Multivitamins/Vitamin C (Multivitamin Tablet) 1 tab PO DAILY [facility] Last Admin: 11/25/22 07:22 Dose: 1 tab Naproxen (Naproxen 500 Mg Tablet) 500 mg PO BID [facility] Last Admin: 11/25/22 07:23 Dose: 500 mg Non-Formulary Medication (Rosuvastatin) 40 mg PO DAILY [facility] Omeprazole (Omeprazole 40 Mg Capsule.Dr) 40 mg PO DAILY [facility] Last Admin: 11/25/22 07:21 Dose: 40 mg Oxybutynin Chloride (Oxybutynin Chloride Er 5 Mg Tab.Er.24) 15 mg PO DAILY [facility] Last Admin: 11/25/22 07:21 Dose: 15 mg Pharmacy Consult (Consult Rx Vancomycin Dosing) 1 each MISCELLANE DAILY PRN PRN Reason: Consult order Polyethylene Glycol (Polyethylene Glycol 3350 17 Gm Powd.Pack) 17 gm PO DAILY [facility] Last Admin: 11/25/22 07:20 Dose: 17 gm Psyllium Hydrophilic Mucilloid (Psyllium Seed 3.4 Gm Powd.Pack) 3.4 gm PO BID [facility] Last Admin: 11/25/22 07:20 Dose: 3.4 gm Quetiapine Fumarate (Quetiapine Fumarate 25 Mg Tablet) 12.5 mg PO BEDTIME [facility] Last Admin: 11/24/22 21:40 Dose: 12.5 mg Quetiapine Fumarate (Quetiapine Fumarate 25 Mg Tablet) 25 mg PO DAILY [facility] Last Admin: 11/25/22 07:22 Dose: 25 mg Sodium Biphosphate/Sodium Phosphate (Sodium Phosphate,White-Dibasic 133 Ml Enema) 133 ml VA ONCE PRN PRN Reason: Constipation Sodium Chloride (0.9 % Sodium Chloride Flush 3 Ml Syringe) 3 ml IVFLUSH QSHIFT [facility] Last Admin: 11/25/22 07:23 Dose: 3 ml Tamsulosin HCl (Tamsulosin Hcl 0.4 Mg Capsule) 0.8 mg PO BEDTIME [facility] Last Admin: 11/24/22 21:38 Dose: 0.8 mg Home Medications Medication Instructions Recorded Confirmed Last Taken Type acetaminophen 650 mg tablet 650 mg PO Q4H PRN Pain 11/21/22 11/21/22 Unknown History bupropion HCl 150 mg tablet,12 hr 150 mg PO BID 11/21/22 11/21/22 Unknown History sustained-release (Wellbutrin SR) cyanocobalamin (vitamin B-12) 500 2,000 mcg PO DAILY 11/21/22 11/21/22 Unknown History mcg tablet cyclobenzaprine 10 mg tablet 10 mg PO DAILY PRN Muscle Spasm 11/21/22 11/21/22 Unknown History dicyclomine 20 mg tablet 20 mg PO BID 11/21/22 11/21/22 Unknown History fluoxetine 60 mg tablet 60 mg PO DAILY 11/21/22 11/21/22 Unknown History gabapentin 300 mg capsule 300 mg PO BID 11/21/22 11/21/22 Unknown History insulin aspart (niacinamide) 1 - 4 sliding scale dose subcut 11/21/22 11/21/22 Unknown History (U-100) 100 unit/mL subcutaneous TIDAC solution insulin glargine 100 unit/mL 45 unit subcut DAILY 11/21/22 11/21/22 Unknown History subcutaneous cartridge loratadine 10 mg tablet 10 mg PO DAILY 11/21/22 11/21/22 Unknown History losartan 50 mg tablet 50 mg PO DAILY 11/21/22 11/21/22 Unknown History meloxicam 15 mg tablet 15 mg PO DAILY 11/21/22 11/21/22 Unknown History metoprolol tartrate 50 mg tablet 50 mg PO BID 11/21/22 11/21/22 Unknown History multivitamin with minerals 1 tab PO DAILY 11/21/22 11/21/22 Unknown History omega-3 fatty acids 500 mg capsule 1,000 mg PO DAILY 11/21/22 11/21/22 Unknown History omeprazole 40 mg capsule,delayed 40 mg PO DAILY 11/21/22 11/21/22 Unknown Hist ory release oxybutynin chloride 15 mg 15 mg PO DAILY 11/21/22 11/21/22 Unknown History tablet,extended release 24 hr oxycodone-acetaminophen 5 mg-325 2 tab PO BID PRN Pain 11/21/22 11/21/22 Unknown History mg tablet psyllium 2 tsp PO BID 11/21/22 11/21/22 Unknown History quetiapine 25 mg tablet 12.5 mg PO BEDTIME 11/21/22 11/21/22 Unknown History quetiapine 25 mg tablet 25 mg PO QAM 11/21/22 11/21/22 Unknown History rosuvastatin 40 mg tablet 40 mg PO DAILY 11/21/22 11/21/22 Unknown History sildenafil 100 mg tablet 100 mg PO DAILY PRN Sexual Activity 11/21/22 11/21/22 Unknown History tamsulosin 0.4 mg capsule 0.8 mg PO BEDTIME 11/21/22 11/21/22 Unknown History terazosin 2 mg capsule 4 mg PO DAILY 11/21/22 11/21/22 Unknown History Physical Exam Vital Signs and Narrative: Vital Signs: Last Vital Signs Temp 97.4 F 11/25/22 07:45 Pulse 78 11/25/22 07:45 Resp 20 11/25/22 07:45 BP 143/70 H 11/25/22 07:45 Pulse Ox 96 11/25/22 07:45 O2 Del Method 11/25/22 07:45 O2 Flow Rate 2 11/22/22 15:09 BMI result Body Mass Index 68.0 Requires a Rollator for stability with ambulation and transfers. It was not necessary for him to stand to examine this left buttock ulcer because he could lean forward in the chair. The leave in foam was peeled back. There is a moderate amount of purulence and slough in this wound. Might consider a surgical consultation for debridement if it is thought to be contributing to b acteremia. This looks more like a for nickel or localized abscess not particularly sebaceous in nature. Is surely draining but is not surrounded by copious amounts of erythema, though he has had IV ceftriaxone for several days and could be involving and improving. Mild bilateral lower extremity edema without ulceration. Results Labs 11/23/22 05:25 11/25/22 06:05 Labs: Laboratory Results - last 24 hr 11/24/22 11/24/22 11/24/22 10:56 16:46 20:48 Estim Creat Clear Calc Estimated GFR POC Glucose 262 H 235 H 338 H 11/25/22 11/25/22 06:05 07:43 Estim Creat Clear Calc 243.2 Estimated GFR > 60 POC Glucose 356 H* Assessment and Plan (1) Non-pressure chronic ulcer of buttock with fat layer exposed: Status: Acute Plan 57-year-old male with relatively preserved mobility though he is a tall man of large size with concern of left buttock ulcer contributing to strep species bacteremia on IV ceftriaxone. Without instrumentation, it is hard to tell if this left buttock ulcers contributing to the infectious picture. It does not look particularly offensive but he is on IV antibiotics and it may have depth that is not able to be assessed without instrumentation. Would recommend General surgery take a look for bedside evaluation with instrumentation, is p ossible. If there is any tunneling, packing or silver alginate could be considered. In the meantime Allevyn foam is a reasonable way to manage this seemingly superficial abscess that has purulent drainage to protect the area from friction and shear. This left buttock ulcer as a consequence of external beam radiation for treatment of prostate cancer is not ruled out. Recommend outpatient wound follow up depending on general surgery opinion. Time Spent With Patient Time: Total time managing care of this patient today ____ minutes.
[2022-11-25] MEDS: cefTRIAXone sodium 2 GM in 0.9 % Sodium Chloride 50 ML IV (10:33)
[2022-11-25 11:25] LABS: Glucose, Whole Blood 383 mg/dL (60-115)
--- NOTE | 2022-11-25 14:12 | PM.CNGS ---
History of Present Illness Consult details Consult date: 11/25/22 Narrative: 57-year-old male with multiple medical problems including morbid obesity, obstructive sleep apnea, PTSD, and diabetes, admitted last 11/21/2022 because of inability for self-care at home. He appears to have had a very poor baseline of function. On admission, he was noted to have an ulcer on the buttock toward the hip area. There was no also another ulcer on the posterolateral thigh as well. He had bacteremia on admission. He was referred to the general surgery service because of this ulcers. He apparently has had multiple falls as well. He has poor balance and seemed to be mostly bedbound. Review of Systems Constitutional: Constitutional: Denies chills, Denies fever(s) and Reports weakness Cardiovascular: Cardiovascular: Denies chest pain, Denies chest pain at rest and Reports dyspnea on exertion Respiratory: Respiratory: Denies cough and Reports dyspnea on exertion Gastrointestinal: Gastrointestinal: Denies hematochezia Genitourinary: Genitourinary: Reports urinary frequency Musculoskeletal: Musculoskeletal: Reports abnormal gait, Reports arthralgias and Reports limited range of motion Neurologic: Reports abnormal gait and Reports weakness PMFSH Past Medical History Medical History Diabetes [place] War syndrome Prostate cancer PTSD (post-traumatic stress disorder) Family History Family history: reviewed and not pertinent Surgical History Surgical History History of back surgery History of prostate surgery Social History Social History Household Members: Family Housing: House Unable to assess alcohol history related to: Unknown Alcohol intake: never Patient Tobacco Use Status: Former Tobacco user service: Yes Current occupational status: employed Meds Allergies Allergy/AdvReac Type Severity Reaction Status Date / Time strawberry [STRAWBERRY] Allergy Severe ANAPHYLAXIS Verified 09/09/20 10:53 aspirin [ASPIRIN] Allergy Unknown SIBLINGS Verified 09/09/20 10:53 WITH BLOOD DISORDER atorvastatin [ATORVASTATIN] Allergy Unknown RASH, Verified 09/09/20 10:53 SWELLING fenofibrate [FENOFIBRATE] Allergy Unknown RASH, Verified 09/09/20 10:53 SWELLING lisinopril [LISINOPRIL] Allergy Unknown RASH,SWELLI Verified 09/09/20 10:53 NG niacin Allergy Unknown RASH,SWELLI Verified 09/09/20 10:53 [From [facility] EXTENDED-RELEASE] [place] (Diagnostic) Allergy Unknown Unknown Uncoded 09/09/20 10:53 Active Medications: Current Medications Acetaminophen (Acetaminophen 325 Mg Tablet) 975 mg PO Q8H [facility] Last Admin: 11/25/22 07:21 Dose: 975 mg Amlodipine Besylate (Amlodipine Besylate 2.5 Mg Tablet) 2.5 mg PO DAILY [facility]; Protocol Last Admin: 11/25/22 07:22 Dose: 2.5 mg Bupropion HCl (Bupropion Hcl Xl 300 Mg Tab.Er.24h) 300 mg PO DAILY [facility] Last Admin: 11/25/22 07:21 Dose: 300 mg Carvedilol (Carvedilol 12.5 Mg Tablet) 12.5 mg PO BID [facility]; Protocol Last Admin: 11/25/22 07:21 Dose: 12.5 mg Cyanocobalamin (Cyanocobalamin (Vitamin B-12) 100 Mcg Tablet) 200 mcg PO DAILY [facility] Last Admin: 11/25/22 07:20 Dose: 200 mcg Cyanocobalamin (Cyanocobalamin (Vitamin B-12) 1,000 Mcg Tablet) 2,000 mcg PO DAILY [facility] Last Admin: 11/25/22 07:21 Dose: 2,000 mcg Cyclobenzaprine HCl (Cyclobenzaprine Hcl 10 Mg Tablet) 10 mg PO DAILY PRN PRN Reason: Muscle Spasm Last Admin: 11/23/22 08:19 Dose: 10 mg Dextrose (Dextrose 50 % 25 Gm/50 Ml Syringe) 25 gm IVPUSH Q15M PRN; Protocol PRN Reason: per Hypoglycemia Standing Ord. Dicyclomine HCl (Dicyclomine Hcl 10 Mg Capsule) 20 mg PO BID [facility] Last Admin: 11/25/22 07:22 Dose: 20 mg Docusate Sodium (Docusate Sodium 100 Mg Capsule) 100 mg PO BEDTIME [facility] Last Admin: 11/24/22 21:39 Dose: 100 mg Doxazosin Mesylate (Doxazosin Mesylate 2 Mg Tablet) 4 mg PO DAILY [facility] Last Admin: 11/25/22 07:23 Dose: 4 mg Enoxaparin Sodium (Enoxaparin Sodium 40 Mg/0.4 Ml Syringe) 40 mg SUBCUT Q24H [facility] Last Admin: 11/24/22 17:08 Dose: 40 mg Fluoxetine HCl (Fluoxetine Hcl 20 Mg Capsule) 60 mg PO DAILY [facility] Last Admin: 11/25/22 07:22 Dose: 60 mg Gabapentin (Gabapentin 300 Mg Capsule) 300 mg PO BID [facility] Last Admin: 11/25/22 07:20 Dose: 300 mg Glucose (Glucose Gel 15 Gm Gel..Gram.) 15 gm PO Q15M PRN; Protocol PRN Reason: per Hypoglycemia Standing Ord. Ceftriaxone Sodium 2 gm/ (Sodium Chloride) 50 mls @ 100 mls/hr IV Q24H [facility] Last Infusion: 11/25/22 11:30 Dose: Infused Insulin Glargine (Insulin Glargine,Hum.Rec.Anlog 100 Unit/Ml 10 Ml Vial) 50 unit SUBCUT DAILY [facility] Last Admin: 11/25/22 08:31 Dose: 50 unit Insulin Human Lispro (Insulin Lispro 100 Unit/Ml 3 Ml Vial) 0 unit SUBCUT QIDACHS [facility]; Protocol Last Admin: 11/25/22 12:05 Dose: 12 unit Insulin Human Lispro (Insulin Lispro 100 Unit/Ml 3 Ml Vial) 5 unit SUBCUT QIDACHS [facility] Last Admin: 11/25/22 12:06 Dose: 5 unit Lidocaine (Lidocaine 4 % Patch Adh..Patch) 1 patch TRANSDERMA DAILY [facility]; Protocol Last Admin: 11/25/22 08:22 Dose: Not Given Loratadine (Loratadine 10 Mg Tablet) 10 mg PO DAILY [facility] Last Admin: 11/25/22 07:23 Dose: 10 mg Losartan Potassium (Losartan Potassium 50 Mg Tablet) 50 mg PO DAILY [facility]; Protocol Last Admin: 11/25/22 07:21 Dose: 50 mg Multivitamins/Vitamin C (Multivitamin Tablet) 1 tab PO DAILY [facility] Last Admin: 11/25/22 07:22 Dose: 1 tab Naproxen (Naproxen 500 Mg Tablet) 500 mg PO BID [facility] Last Admin: 11/25/22 07:23 Dose: 500 mg Non-Formulary Medication (Rosuvastatin) 40 mg PO DAILY [facility] Omeprazole (Omeprazole 40 Mg Capsule.Dr) 40 mg PO DAILY [facility] Last Admin: 11/25/22 07:21 Dose: 40 mg Oxybutynin Chloride (Oxybutynin Chloride Er 5 Mg Tab.Er.24) 15 mg PO DAILY [facility] Last Admin: 11/25/22 07:21 Dose: 15 mg Pharmacy Consult (Consult Rx Vancomycin Dosing) 1 each MISCELLANE DAILY PRN PRN Reason: Consult order Polyethylene Glycol (Polyethylene Glycol 3350 17 Gm Powd.Pack) 17 gm PO DAILY [facility] Last Admin: 11/25/22 07:20 Dose: 17 gm Psyllium Hydrophilic Mucilloid (Psyllium Seed 3.4 Gm Powd.Pack) 3.4 gm PO BID [facility] Last Admin: 11/25/22 07:20 Dose: 3.4 gm Quetiapine Fumarate (Quetiapine Fumarate 25 Mg Tablet) 12.5 mg PO BEDTIME [facility] Last Admin: 11/24/22 21:40 Dose: 12.5 mg Quetiapine Fumarate (Quetiapine Fumarate 25 Mg Tablet) 25 mg PO DAILY [facility] Last Admin: 11/25/22 07:22 Dose: 25 mg Sodium Biphosphate/Sodium Phosphate (Sodium Phosphate,[place]-Dibasic 133 Ml Enema) 133 ml SD ONCE PRN PRN Reason: Constipation Sodium Chloride (0.9 % Sodium Chloride Flush 3 Ml Syringe) 3 ml IVFLUSH QSHIFT [facility] Last Admin: 11/25/22 07:23 Dose: 3 ml Tamsulosin HCl (Tamsulosin Hcl 0.4 Mg Capsule) 0.8 mg PO BEDTIME [facility] Last Admin: 11/24/22 21:38 Dose: 0.8 mg Home Medications Medication Instructions Recorded Confirmed Last Taken Type acetaminophen 650 mg tablet 650 mg PO Q4H PRN Pain 11/21/22 11/21/22 Unknown History bupropion HCl 150 mg tablet,12 hr 150 mg PO BID 11/21/22 11/21/22 Unknown History sustained-release (Wellbutrin SR) cyanocobalamin (vitamin B-12) 500 2,000 mcg PO DAILY 11/21/22 11/21/22 Unknown History mcg tablet cyclobenzaprine 10 mg tablet 10 mg PO DAILY PRN Muscle Spasm 11/21/22 11/21/22 Unknown History dicyclomine 20 mg tablet 20 mg PO BID 11/21/22 11/21/22 Unknown History fluoxetine 60 mg tablet 60 mg PO DAILY 11/21/22 11/21/22 Unknown History gabapentin 300 mg capsule 300 mg PO BID 11/21/22 11/21/22 Unknown History insulin aspart (niacinamide) 1 - 4 sliding scale dose subcut 11/21/22 11/21/22 Unknown History (U-100) 100 unit/mL subcutaneous TIDAC solution insulin glargine 100 unit/mL 45 unit subcut DAILY 11/21/22 11/21/22 Unknown History subcutaneous cartridge loratadine 10 mg tablet 10 mg PO DAILY 11/21/22 11/21/22 Unknown History losartan 50 mg tablet 50 mg PO DAILY 11/21/22 11/21/22 Unknown History meloxicam 15 mg tablet 15 mg PO DAILY 11/21/22 11/21/22 Unknown History metoprolol tartrate 50 mg tablet 50 mg PO BID 11/21/22 11/21/22 Unknown History multivitamin with minerals 1 tab PO DAILY 11/21/22 11/21/22 Unknown History omega-3 fatty acids 500 mg capsule 1,000 mg PO DAILY 11/21/22 11/21/22 Unknown History omeprazole 40 mg capsule,delayed 40 mg PO DAILY 11/21/22 11/21/22 Unknown History release oxybutynin chloride 15 mg 15 mg PO DAILY 11/21/22 11/21/22 Unknown History tablet,extended release 24 hr oxycodone-acetaminophen 5 mg-325 2 tab PO BID PRN Pain 11/21/22 11/21/22 Unknown History mg tablet psyllium 2 tsp PO BID 11/21/22 11/21/22 Unknown History quetiapine 25 mg tablet 12.5 mg PO BEDTIME 11/21/22 11/21/22 Unknown History quetiapine 25 mg tablet 25 mg PO QAM 11/21/22 11/21/22 Unknown History rosuvastatin 40 mg tablet 40 mg PO DAILY 11/21/22 11/21/22 Unknown History sildenafil 100 mg tablet 100 mg PO DAILY PRN Sexual Activity 11/21/22 11/21/22 Unknown History tamsulosin 0.4 mg capsule 0.8 mg PO BEDTIME 11/21/22 11/21/22 Unknown History terazosin 2 mg capsule 4 mg PO DAILY 11/21/22 11/21/22 Unknown History Physical Exam Vital Signs: Vital Signs: Last Vital Signs Temp 97.4 F 11/25/22 07:45 Pulse 78 11/25/22 07:45 Resp 20 11/25/22 07:45 BP 143/70 H 11/25/22 07:45 Pulse Ox 96 11/25/22 07:45 O2 Del Method 11/25/22 07:45 O2 Flow Rate 2 11/22/22 15:09 BMI result Body Mass Index 68.0 Const: Other: Very morbidly obese, appears frail General: comfortable and no acute distress Orientation/consciousness: patient oriented x3 Neck: Neck: Yes no lymphadenopathy Resp: Auscultation: clear to auscultation bilaterally Cardio: Rhythm: regular rhythm GI: Other: Very obese Palpation (GI): Soft to palpation, nontender and no guarding Skin: Other: Left buttock laterally towards the hip area is note of an ulcer, about 2 cm in diameter, with note of exposed subcutaneous tissue, some fibrinous exudates; mild induration; similar ulcer noted of the same size as well on the posterolateral thigh on the left; no cellulitis, no purulent drainage Neuro: General: patient oriented x3 Results Labs 11/23/22 05:25 11/25/22 06:05 Labs: Abnormal lab results 11/24/22 11/24/22 11/25/22 Range/Units 16:46 20:48 07:43 POC Glucose 235 H 338 H 356 H* (60-115) mg/dL 11/25/22 Range/Units 11:19 POC Glucose 383 H* (60-115) mg/dL BMP 11/25/22 06:05 Creatinine 0.63 Urine 11/20/22 Range/Units 23:18 Urine Color Yellow Urine Appearance Clear Urine pH 6.5 (5.0-9.0) Ur Specific [place] >= 1.030 H (1.005-1.025) Urine Protein 300 (3+) H (Neg-Trace) mg/dL Urine Glucose (UA) >=1000 H (Negative) mg/dL All other labs normal. Imaging Additional studies: Laboratory Results WBC 12.2 X10*3/uL (4.8-10.8) H 11/23/22 05:25 RBC 3.80 X10*6/uL (4.60-5.80) L 11/23/22 05:25 Hgb 10.8 g/dl (14.0-18.0) L 11/23/22 05:25 Hct 31.9 % (42.0-52.0) L 11/23/22 05:25 MCV 83.9 fL (80.0-98.0) 11/23/22 05:25 MCH 28.4 pg (27.0-33.0) 11/23/22 05:25 MCHC 33.9 g/dl (31.0-36.0) 11/23/22 05:25 RDW 13.6 % (11.0-16.0) 11/23/22 05:25 Plt Count 314 X10*3/uL (160-400) 11/23/22 05:25 MPV 9.3 fL (9.4-12.4) L 11/23/22 05:25 Immature Gran % (Auto) 0.8 % (0.0-0.4) H 11/21/22 12:47 Neut % (Auto) 87.1 % (45-73) H 11/21/22 12:47 Lymph % (Auto) 4.7 % (20-40) L 11/21/22 12:47 [place] % (Auto) 7.2 % (2-11) 11/21/22 12:47 Eos % (Auto) 0.1 % (0-4) 11/21/22 12:47 Baso % (Auto) 0.1 % (0-2) 11/21/22 12:47 Lymph # (Auto) 0.7 X10*3/uL (1.2-4.9) L 11/21/22 12:47 [place] # (Auto) 1.1 X10*3/uL (0.1-1.2) 11/21/22 12:47 Eos # (Auto) 0.0 X10*3/uL (0.0-0.4) 11/21/22 12:47 Baso # (Auto) 0.0 X10*3/uL (0.0-0.2) 11/21/22 12:47 Abs Immat Gran (auto) 0.12 X10*3/uL (0.00-0.03) H 11/21/22 12:47 Absolute Neuts (auto) 13.1 x10*3/uL (2.0-8.3) H 11/21/22 12:47 Absolute Nucleated RBC 0.000 X10*3/uL (0.0-0.012) 11/23/22 05:25 Nucleated RBC % (auto) 0.0 /100WBC (0.0-0.2) 11/23/22 05:25 Sodium 135 mmol/L (135-145) 11/23/22 05:25 Potassium 3.9 mmol/L (3.3-5.1) 11/23/22 05:25 Chloride 100 mmol/L (96-108) 11/23/22 05:25 Carbon Dioxide 24 mmol/L (22-29) 11/23/22 05:25 Anion Gap 15 (12-20) 11/23/22 05:25 BUN 13 mg/dL (9-16) 11/23/22 05:25 Creatinine 0.63 mg/dL (0.5-1.4) 11/25/22 06:05 Estim Creat Clear Calc 243.2 11/25/22 06:05 Estimated GFR > 60 11/25/22 06:05 POC Glucose 383 mg/dL (60-115) H* 11/25/22 11:19 Random Glucose 293 mg/dL (60-115) H 11/23/22 05:25 Estimat Average Glucose 212 mg/dL 11/21/22 12:47 Hemoglobin A1c % 9.0 % 11/21/22 12:47 Lactic Acid 1.1 mmol/L (0.5-2.0) 11/21/22 12:47 Calcium 8.3 mg/dL (8.4-10.2) L 11/23/22 05:25 Total Bilirubin 0.4 mg/dL (0.0-1.0) 11/21/22 12:47 Direct Bilirubin < 0.2 mg/dL (0.0-0.5) 11/21/22 12:47 AST 24 U/L (5-37) 11/21/22 12:47 ALT 25 U/L (0-40) 11/21/22 12:47 Alkaline Phosphatase 94 U/L (39-117) 11/21/22 12:47 Total Protein 6.2 g/dL (6.5-8.0) L 11/21/22 12:47 Albumin 3.6 g/dL (3.5-5.0) 11/21/22 12:47 Lipase Cancelled 11/20/22 23:18 Urine Color Yellow 11/20/22 23:18 Urine Appearance Clear 11/20/22 23:18 Urine pH 6.5 (5.0-9.0) 11/20/22 23:18 Ur Specific [place] >= 1.030 (1.005-1.025) H 11/20/22 23:18 Urine Protein 300 (3+) mg/dL (Neg-Trace) H 11/20/22 23:18 Urine Glucose (UA) >=1000 mg/dL (Negative) H 11/20/22 23:18 Urine Ketones 80 mg/dL (Negative) 11/20/22 23:18 Urine Blood Moderate (2+) (Negative) H 11/20/22 23:18 Urine Nitrite Negative (Negative) 11/20/22 23:18 Ur Leukocyte Esterase Negative (Negative) 11/20/22 23:18 Urine RBC 0-2 /HPF (0-2) 11/20/22 23:18 Urine WBC 0-5 /HPF (0-5) 11/20/22 23:18 Ur Squamous Epith Cells 0-2 /HPF (0-2) 11/20/22 23:18 Urine Bacteria None Seen (None Seen) 11/20/22 23:18 Hyaline Casts 0-2 /LPF (0-2) 11/20/22 23:18 Vancomycin Trough 5.1 mcg/mL (10.0-20.0) L 11/22/22 14:21 COVID-19 (NEFTALI) Negative (Negative) 11/21/22 01:50 COVID-19 Clin Com See Note 11/21/22 01:50 Impressions Knee X-Ray 11/21/22 16:21 IMPRESSION: 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 No significant knee joint effusion. Skull X-Ray 11/22/22 07:45 IMPRESSION: No acute fractures are identified. Assessment and Plan (1) Non-pressure chronic ulcer of buttock with fat layer exposed: Status: Acute Plan He has this ulcers on the left buttock and left thigh as described above. I probed this with a hemostat and these do not appear to have a deep tract. These therefore appeared to be superficial in the subcutaneous layer. I debrided these bluntly as well because of the presence of fibrinous exudates. I reapplied dry dressings. I am uncertain as to the etiology of these ulcers. This do not appear to be related to pressure. Subcutaneous fat necrosis may also be a differential. He is not a very good historian so I am uncertain if this may have been secondary to an insect bite as well. I have bluntly debrided these. Continue with good wound care for now. Again, I do not see any the tract when probed with a hemostat. I will check on these also periodically while he is in the hospital. Time Spent With Patient Time: Total time managing care of this patient today ____ minutes. Procedures Date of Service Date of Service: 11/25/22
--- NOTE | 2022-11-25 15:07 | PC.NURSE ---
Pt removed his iv in his thumb , this rn attempted new iv , community services officer attempted , will reach out to other supervisors . made aware
[2022-11-25 15:56] VITALS: BP 181/81; PULSE 85; RESP 20; TEMP 36.1; O2SAT 96
[2022-11-25 16:18] LABS: Glucose, Whole Blood 247 mg/dL (60-115)
[2022-11-25] MEDS: Enoxaparin Sodium 40 MG/0.4 ML SYRINGE SUBCUT (16:26)
[2022-11-25 19:11] VITALS: BP 172/86; PULSE 82; RESP 18; TEMP 36.5; O2SAT 94
[2022-11-25] MEDS: Tamsulosin HCL 0.4 MG CAPSULE 0.8 MG PO (20:43)
[2022-11-25] MEDS: Docusate Sodium 100 MG CAPSULE PO (20:44)
[2022-11-25] MEDS: QUEtiapine Fumarate 25 MG TABLET 12.5 MG PO (20:44)
[2022-11-25 20:55] LABS: Glucose, Whole Blood 324 mg/dL (60-115)
--- NOTE | 2022-11-26 02:33 | PC.NURSE ---
Pt pulled his Iv out; IV is intact, bleeding under control. Several nurses including metal furniture assembly supervisor tried to get patient another IV access, however was unsuccessful. Dr Kay was informed and he is okay with patient waiting till morning to get patient a new IV access. Pt is aware of plan of care.
[2022-11-26 03:44] VITALS: BP 178/79; PULSE 78; RESP 20; TEMP 36.2; O2SAT 97
[2022-11-26 07:01] LABS: Creatinine Clr Calc Pharmacy 247.1; Estimated Glomerular Filt Rate > 60
[2022-11-26 07:14] VITALS: BP 138/65; PULSE 79; RESP 16; TEMP 36.6; O2SAT 97
[2022-11-26 07:28] VITALS: PULSE 70; RESP 17; O2SAT 95
[2022-11-26 07:33] LABS: Glucose, Whole Blood 238 mg/dL (60-115)
[2022-11-26] MEDS: Loratadine 10 MG TABLET PO (08:49)
[2022-11-26] MEDS: Acetaminophen 325 MG TABLET 975 MG PO ×2 (08:49→16:13)
[2022-11-26] MEDS: Doxazosin Mesylate 2 MG TABLET 4 MG PO (08:49)
[2022-11-26] MEDS: amLODIPine Besylate 2.5 MG TABLET PO (08:49)
[2022-11-26] MEDS: Omeprazole 40 MG CAPSULE.DR PO (08:49)
[2022-11-26] MEDS: FLUoxetine HCl 20 MG CAPSULE 60 MG PO (08:49)
[2022-11-26] MEDS: Gabapentin 300 MG CAPSULE PO (08:49)
[2022-11-26] MEDS: NaPROXEN 500 MG TABLET PO (08:50)
[2022-11-26] MEDS: Cyanocobalamin (Vitamin B-12) 1,000 MCG TABLET 2000 MCG PO (08:50)
[2022-11-26] MEDS: buPROPion HCl XL 300 MG TAB.ER.24H PO (08:50)
[2022-11-26] MEDS: Multivitamin TABLET 1 TAB PO (08:50)
[2022-11-26] MEDS: oxyBUTYnin chloride ER 5 MG TAB.ER.24 15 MG PO (08:50)
[2022-11-26] MEDS: Cyanocobalamin (Vitamin B-12) 100 MCG TABLET 200 MCG PO (08:51)
[2022-11-26] MEDS: carvediloL 12.5 MG TABLET PO (08:51)
[2022-11-26] MEDS: Dicyclomine HCl 10 MG CAPSULE 20 MG PO (08:51)
[2022-11-26] MEDS: Losartan Potassium 50 MG TABLET PO (08:51)
[2022-11-26] MEDS: QUEtiapine Fumarate 25 MG TABLET PO (08:52)
[2022-11-26] MEDS: Insulin Lispro 100 UNIT/ML 3 ML VIAL SUBCUT ×4 (08:52→11:59)
[2022-11-26] MEDS: Insulin Glargine,Hum.rec.anlog 100 UNIT/ML 10 ML VIAL 50 UNIT SUBCUT (08:53)
[2022-11-26] MEDS: polyethylene glycoL 3350 17 GM POWD.PACK PO (09:06)
--- NOTE | 2022-11-26 10:46 | MHC.CM.PN ---
PT MEDICALLY CLEARED FOR D/C, WILL NEED NEW VNA FOR SN AND HOME PT, DRSSING CHANGES Q3 DAYS, CM CONTACTED PT'S SON MURTAZA VIA PT CELL PHONE AT BEDSIDE AND AND ALTHOUGH HE HAS CONCERNS REGARDING PT'S INCONTINENCE HE IS AWARE THAT WILL NOT KEEP HIM IN THE HOSPITAL AND PT HAS CLEARED PT TO GO HOME W/SERVICES NOT TO STR. MURTAZA WILL LEASE ANALYST PT AT 3PM PER DISCUSSION.
[2022-11-26 11:08] LABS: Glucose, Whole Blood 354 mg/dL (60-115)
--- NOTE | 2022-11-26 11:21 | PM.DS ---
DS: Providers Provider Date of Service: 11/26/22 Date of admission: 11/21/22 15:24 Primary care physician: Holden Koo NP Consults: 11/23/22 07:40 Consult to Infectious Diseases Routine Consulting Provider: Agatha Glynn Reason for consultation: STREP bacteremia Has provider been notified: No 11/24/22 11:35 Consult to Wound Care Routine Consulting Provider: [facility] Wound Care Management Reason for consultation: back wounds Has provider been notified: No 11/25/22 12:06 Consult to General Surgery Routine Consulting Provider: Maco Wynn Reason for consultation: coccyx wound, ? tunneling Has provider been notified: No Attending physician on discharge: Pb Wooten Discharging clinician: Clarisa Matthews DS: Diagnosis Discharge Diagnosis (1) Non-pressure chronic ulcer of buttock with fat layer exposed: Status: Acute DS: Summary Hospital Course Hospital Course: HP as per admitting provider 57-year-old male morbidly obese, hypertension, insulin-dependent , prostate cancer status post surgery in 2018 (?? Laser prostatectomy) and radiation, urinary incontinence from 3-4 years, sleep apnea noncompliant with CPAP, ex-smoker quit in 2018:Patient came to the hospital because unable to take care at home, he said few days back he had some flank pain and urinary frequency for which she went to [facility]-he was discharged with the p.o. antibiotic for possible UTI, subsequently went home as per the patient he was excessively sleepy(was taking oxycodone also) and urinating on himself, in bathroom also fall x1 -son was nearby, patient said he did not hit his head and did not lose his consciousness.? For above reasons EMS was called and patient was brought to the hospital. Patient says that he has urinary frequency but unclear since he is having urinary incontinence for 3-4 years.? He said he had a left flank pain initially. On review also had some small upper buttock area ulcers/wounds. has some mild soarness of right knee area with pain. Patient was in the hospital since last night and plan was for placement but then his blood culture came back positive and subsequently requested admission for that. Currently patient denies any flank pain or any headache or blurry vision or new complaint of chest pain or shortness of breath or abdominal pain or fever or chills or nausea or vomitin or cough. Denies any weakness or numbness. Labs reviewed: WBC count is 15, has mild hyperglycemia, BMP seems fine except mild hyponatremia. In ED patient received vancomycin considering blood culture positive, also received ceftriaxone for possible question of UTI . Strep aglacticae bacteremia. Initially treated with ceftriaxone, echocardiogram unlikely having vegetation, discussed with ID. Home with 14 days of Ceftin Diabetes with hyperglycemia. Continue medications Hyponatremia.? Resolved. pseudohypanatremia due to hyperglycemia . Obstructive sleep apnea. Noncompliant with CPAP Hyperlipidemia. Statin HTN uncontrolled. Continue losartan and amlodipine. Metoprolol changed to Coreg. History of prostate cancer,?? Urinary retention versus incontinence. Continue Flomax and terazosin. Anxiety. Continue home anxiety regimen . Mechanical fall. head xray-fine(unable to get head CT because could not tolerate and refused).knee xray -b/l arthritis Toxic metabolic encephalopathy.? Resolved. Probably related to excessive oxycodone use, decreased p.o. intake. Not related to sepsis morbid obesity.? BMI 60.0. Discussed importance of weight management as this may be contributing to worsening of other comorbidities back skin ulcers. turn frequent,wound care, oob, ambulate. Allevyn dressing every 3 days Generalize weakness. Home PT Constipation. Continue laxatives as needed Time Spent with Patient Time attestation: Total time managing care of this patient today ____ minutes. Discharge coordination time: Greater than 30 minutes Quality: Safe Use of Opioids Does Pt have an Active Cancer Diagnosis on the Problem List?: No Quality: Stroke Does the patient have a stroke diagnosis?: No Physical Exam Vital Signs: Vital Signs: Last Vital Signs Temp 97.9 F 11/26/22 07:14 Pulse 79 11/26/22 07:14 Resp 17 11/26/22 07:28 BP 138/65 11/26/22 07:14 Pulse Ox 97 11/26/22 07:14 O2 Del Method 11/26/22 07:14 O2 Flow Rate 2 11/22/22 15:09 BMI result Body Mass Index 68.0 Appearing in no acute distress head is normocephalic atraumatic eyes pupils are PERRLA sclera is anicteric mouth throat mucous membranes are intact and moist neck is supple no lymphadenopathy, no JVD noted lung sounds are clear to auscultation heart regular rate rhythm, clear S1, S2 positive bowel sounds, abdomen is soft, nontender. Obese neuro patient is alert x3, no focal deficits DS: Data Data Completed and Pending Labs on day of discharge: Laboratory Results - last 24 hr 11/25/22 11/25/22 11/25/22 11:19 16:09 20:44 Creatinine Estim Creat Clear Calc Estimated GFR POC Glucose 383 H* 247 H 324 H 11/26/22 11/26/22 11/26/22 05:33 07:12 11:01 Creatinine 0.62 Estim Creat Clear Calc 247.1 Estimated GFR > 60 POC Glucose 238 H 354 H* Preliminary micro results at discharge 11/21/22 12:48 Blood Culture - Preliminary Blood - Venous No growth after 48 hours. 11/21/22 12:47 Blood Culture - Preliminary Blood - Venous No growth after 48 hours. Discharge Plan Discharge Anticipated Discharge Date/Time: 11/26/22 10:59 Patient Disposition: Home Health Service Discharge Diagnosis: Strep aglacticae bacteremia Diabetes with hyperglycemia Hyponatremia Referrals: Holden Koo, [employer]CHNICIAN [Primary Care Provider] - 1 Week Discharge Medications: New amlodipine 2.5 mg Tablet 2.5 mg PO DAILY Qty: 30 0RF Protocol: Hold for SBP< HOLD for SBP < : 90 carvedilol 12.5 mg Tablet 12.5 mg PO BID Qty: 60 0RF Protocol: Hold for SBP/HR < HOLD for SBP < : 90 HOLD for HR < : 60 cefuroxime axetil 500 mg Tablet 500 mg PO BID Qty: 27 0RF Continued quetiapine 25 mg Tablet 25 mg PO QAM quetiapine 25 mg Tablet 12.5 mg PO BEDTIME bupropion HCl [Wellbutrin SR] 150 mg Tablet Sustained-Release 12 Hr 150 mg PO BID acetaminophen 650 mg Tablet 650 mg PO Q4H PRN (Reason: Pain) oxycodone-acetaminophen 5-325 mg Tablet 2 tab PO BID PRN (Reason: Pain) dicyclomine 20 mg Tablet 20 mg PO BID metoprolol tartrate 50 mg Tablet 50 mg PO BID gabapentin 300 mg Capsule 300 mg PO BID loratadine 10 mg Tablet 10 mg PO DAILY fluoxetine 60 mg Tablet 60 mg PO DAILY losartan 50 mg Tablet 50 mg PO DAILY omeprazole 40 mg Capsule,Delayed Release(Dr/Ec) 40 mg PO DAILY sildenafil 100 mg Tablet 100 mg PO DAILY PRN (Reason: Sexual Activity) Rx Instructions: administer 30 minutes to 4 hours before activity psyllium Powder 2 tsp PO BID Rx Instructions: mix into at least 4 oz water or juice before administering terazosin 2 mg Capsule 4 mg PO DAILY multivitamin with minerals Tablet 1 tab PO DAILY rosuvastatin 40 mg Tablet 40 mg PO DAILY insulin glargine 100 unit/mL Cartridge 45 unit SUBCUT DAILY omega-3 fatty acids 500 mg Capsule 1,000 mg PO DAILY insulin aspart (niacinamide) 100 unit/mL Solution 1 - 4 sliding scale dose SUBCUT TIDAC cyclobenzaprine 10 mg Tablet 10 mg PO DAILY PRN (Reason: Muscle Spasm) oxybutynin chloride 15 mg Tablet Extended Release 24hr 15 mg PO DAILY meloxicam 15 mg Tablet 15 mg PO DAILY cyanocobalamin (vitamin B-12) 500 mcg Tablet 2,000 mcg PO DAILY tamsulosin 0.4 mg Capsule 0.8 mg PO BEDTIME Discharge Orders: Discharge Order (Routine); Ordered 11/26/22 Ordered By: Clarisa Matthews Diet: Advance to usual diet Activity on Discharge: As tolerated Stand Alone Forms: Patient Portal Discharge page Care Plan Goals: Change wound dressing every 3 days: Allevyn Foam dressing Health Concerns: Strep aglacticae bacteremia Diabetes with hyperglycemia Hyponatremia Plan of Treatment: Follow-up with primary care provider as needed Take all your medications as prescribed Assessment: See discharge summary
--- NOTE | 2022-11-26 11:26 | P.F2F_ITS ---
Service Date Service Date: 11/26/22 Encounter Date of encounter: 11/26/22 Reasons for Services Signs and symptoms assessed: Weakness, buttocks wounds Reason for group home: CV/CP assess and/or care Reason for physical therapy: home safety and mobility Homebound: Leaving the home is medically contraindicated at this time without the asist of a device and/or another person due th the listed conditions above and below. Reason homebound: unsteady gait / fall risk Certification: Based on the above findings, I certify that this patient is confined to the home and needs intermittent group home care, physical therapy and/or speech t herapy, or continues to need occupational therapy. The patient is under my care, and I have initiated the establishment of the plan of care. The patient will be followed by a physician who will periodically review the plan of care. Time Spent With Patient Time: Total time managing care of this patient today ____ minutes.
--- NOTE | 2022-11-26 13:30 | MHC.CM.PN ---
[facility] TO PROVIDE HOME PT AND [facility].
[2022-11-26 15:19] VITALS: BP 125/67; PULSE 85; RESP 18; TEMP 36.5; O2SAT 96
--- NOTE | 2022-11-26 15:36 | MHC.CM.PN ---
Received phone call from patient's son Luis who stated he would not be picking up his father. Luis stated [facility] and [facility] were [facility] for his father to go to respite care in 1-2 days. T/w called and spoke with both Carmen and Karie at the [facility] ([phone]) who stated there was no plan to establish respite care immediately from hospital dc but that the [facility] was exploring services for the . Carmen stated the discharge was not dependent on the [facility] nor the wishes of the son. Information relayed to rn case management.
--- NOTE | 2022-11-26 15:53 | MHC.CM.PN ---
CM MET W/PT FOR THE LAST TIME AFTER 3:30PM, PT ON PHONE W/SON WHO PT REPORTS IS IN AGREEMENT TO TAKE PT HOME BY 4:30PM, AMBULANCE TRANSPORT ARRANGED FOR 5PM IN CASE SON DOES NOT SHOW UP, PT AWARE.
[2022-11-26] MEDS: Enoxaparin Sodium 40 MG/0.4 ML SYRINGE SUBCUT (16:14)
--- NOTE | 2022-12-01 09:19 | P.CDIM_ITS ---
PROVIDER RESPONSE TEXT: To clarify, the appropriate diagnosis supported by the clinical indicators: After study (the condition) has been ruled out QUERY TEXT: PHYSICIAN'S DOCUMENTATION REQUEST Date of Query: 11/28/2022 10:38 AM EST Patient Name: Jermaine Castillo Admit Date: 11/21/2022 Dear Clarisa Matthews, A review of the medical record indicates additional documentation may be needed. Please review below and update the documentation accordingly. The patient's infectious clinical indicators include: H&P 11/21 - Sepsis due to skin and skin structure infection/wound on the back WBC 15 Temp 96.5 HR 117 RR 23 Vanco trough, Ceftriaxone. PN: 11/25 - Inpatient need: Sepsis/Aglacticae bacteremia, IV antibiotics Sepsis Systemic manifestations of infection, with 2 or more SIRS criteria which include: Fever > 100.4?F or hypothermia < 96.8?F Leukocytosis WBC > 12,000 or leukopenia, WBC < 4,000, or > 10% bands Tachycardia- > 90 beats/minute Tachypnea- RR > 20 breaths/minute or PaCO2 < 32mmHg Source: [employer] Manual 2013 Documentation should include the known or suspected organism, and the underlying infection, such as U TI or pneumonia Based on the above information and the recognized standard for sepsis, could you please clarify if th is diagnoses is still accurate and reflective of the patient's condition to ensure quality of the medical record. Sepsis is/was present and is a clinical diagnosis based on After study (the condition) has been ruled out Other (explain) Clinically unable to determine (explain) Thank you, Monie Giron, CCS, CDIS Use of terms such as suspected, likely, concern for, or probable (associated with a specific diagnosi s that is being evaluated, monitored, or treated as if it exists) are acceptable and can be coded in the inpatient se tting, when documented at the time of discharge. Please use your independent medical judgment in providing your response. THIS QUERY IS PART OF THE PERMANENT MEDICAL RECORD
== END 2022-11-26 17:32 | disposition home health service (06) | DRG 579 ==
LOC: HO.ED 11-21 12:35 → HO.EDOVER 11-21 15:33 → HO.S3 11-21 19:18
PROVIDERS: Physician Assistant; Admitting Provider Internal Medicine; Emergency Provider Internal Medicine; PCP Nurse Practitioner Family; Visit Provider Nurse Practitioner Acute Care
DX: L98.412 Non-pressure chronic ulcer of buttock with fat layer exposed (principal); G92.8 Other toxic encephalopathy; Z68.44 Body mass index [BMI] 60.0-69.9, adult; E11.52 Type 2 diabetes mellitus with diabetic peripheral angiopathy with gangrene; R78.81 Bacteremia; F43.10 Post-traumatic stress disorder, unspecified; E11.65 Type 2 diabetes mellitus with hyperglycemia; E78.5 Hyperlipidemia, unspecified; F41.9 Anxiety disorder, unspecified; E66.01 Morbid (severe) obesity due to excess calories; K59.00 Constipation, unspecified; Z85.46 Personal history of malignant neoplasm of prostate; Z92.3 Personal history of irradiation; Z87.891 Personal history of nicotine dependence; Z91.199 Patient's noncompliance with other medical treatment and regimen due to unspecified reason; Z20.822 Contact with and (suspected) exposure to COVID-19; Z91.82 Personal history of military deployment; Z88.6 Allergy status to analgesic agent; Z79.4 Long term (current) use of insulin; Z79.899 Other long term (current) drug therapy; B95.1 Streptococcus, group B, as the cause of diseases classified elsewhere
CPT/HCPCS: 36415; 70250; 73560; 80048; 80053; 80076; 80202; 81001; 82565; 82947; 83036; 83605; 83690; 85025; 85027; 87040; 87147; 87186; 87205; 87635; 93306; 94660; 96365; 97116; 97162; 97530; 99285; J0696; J1650; J2270; J3370; J3371; Q9957

== ENCOUNTER 2023-03-10 17:16 | Emergency (ER) | payer OTHER, SELFPAY ==
--- NOTE | ~2023-03-10 | XR_ITS ---
EXAMINATION: XR CHEST CLINICAL INFORMATION: Pedal edema COMPARISON: None available. TECHNIQUE: Frontal view of the chest was obtained. FINDINGS: No significant abnormality is noted involving the heart, lungs, mediastinum, bony thorax or soft tissues. XR/XR chest 1V IMPRESSION: Unremarkable examination.
[2023-03-10 18:10] VITALS: BP 119/56; PULSE 93; RESP 20; TEMP 36; O2SAT 95; BMI 58.4
--- NOTE | 2023-03-10 18:12 | ED.GENADULT ---
HPI - General Adult General Chief complaint: General Medical Stated complaint: Rash? Poison Jory on L Leg. Time Seen by Provider: 03/10/23 20:29 Source: patient, RN notes reviewed and old records reviewed Mode of arrival: ambulatory Limitations: no limitations History of Present Illness HPI narrative: 57-year-old male past medical history significant for diabetes, hypertension, morbid obesity, GERD presents for evaluation of multiple complaints. Patient reports he has a rash to his left lower leg that he feels is consistent with poison jory. Patient states that he gets poison jory every year even if he is not in the [place]. Patient also reports that he has a wound to his left upper leg. He states ?it opens up every time I sit down. ? He reports that he was seen at [facility] 3 or 4 months ago for this and it was treated with antibiotics Denies any fevers or chills today The patient also complains of ?and infection to my left ear. ? Related Data Home Medications Medication Instructions Recorded Confirmed acetaminophen 650 mg tablet 650 mg PO Q4H PRN Pain 11/21/22 11/21/22 bupropion HCl 150 mg tablet,12 hr 150 mg PO BID 11/21/22 11/21/22 sustained-release (Wellbutrin SR) cyanocobalamin (vitamin B-12) 500 2,000 mcg PO DAILY 11/21/22 11/21/22 mcg tablet cyclobenzaprine 10 mg tablet 10 mg PO DAILY PRN Muscle Spasm 11/21/22 11/21/22 dicyclomine 20 mg tablet 20 mg PO BID 11/21/22 11/21/22 fluoxetine 60 mg tablet 60 mg PO DAILY 11/21/22 11/21/22 gabapentin 300 mg capsule 300 mg PO BID 11/21/22 11/21/22 insulin aspart (niacinamide) 1 - 4 sliding scale dose subcut 11/21/22 11/21/22 (U-100) 100 unit/mL subcutaneous TIDAC solution insulin glargine 100 unit/mL 45 unit subcut DAILY 11/21/22 11/21/22 subcutaneous cartridge loratadine 10 mg tablet 10 mg PO DAILY 11/21/22 11/21/22 losartan 50 mg tablet 50 mg PO DAILY 11/21/22 11/21/22 meloxicam 15 mg tablet 15 mg PO DAILY 11/21/22 11/21/22 metoprolol tartrate 50 mg tablet 50 mg PO BID 11/21/22 11/21/22 multivitamin with minerals 1 tab PO DAILY 11/21/22 11/21/22 omega-3 fatty acids 500 mg capsule 1,000 mg PO DAILY 11/21/22 11/21/22 omeprazole 40 mg capsule,delayed 40 mg PO DAILY 11/21/22 11/21/22 release oxybutynin chloride 15 mg 15 mg PO DAILY 11/21/22 11/21/22 tablet,extended release 24 hr oxycodone-acetaminophen 5 mg-325 2 tab PO BID PRN Pain 11/21/22 11/21/22 mg tablet psyllium 2 tsp PO BID 11/21/22 11/21/22 quetiapine 25 mg tablet 12.5 mg PO BEDTIME 11/21/22 11/21/22 quetiapine 25 mg tablet 25 mg PO QAM 11/21/22 11/21/22 rosuvastatin 40 mg tablet 40 mg PO DAILY 11/21/22 11/21/22 sildenafil 100 mg tablet 100 mg PO DAILY PRN Sexual Activity 11/21/22 11/21/22 tamsulosin 0.4 mg capsule 0.8 mg PO BEDTIME 11/21/22 11/21/22 terazosin 2 mg capsule 4 mg PO DAILY 11/21/22 11/21/22 Previous Rx's Medication Instructions Recorded amlodipine 2.5 mg tablet 2.5 mg PO DAILY #30 tabs 11/26/22 carvedilol 12.5 mg tablet 12.5 mg PO BID #60 tabs 11/26/22 cefuroxime axetil 500 mg tablet 500 mg PO BID #27 tabs 11/26/22 cephalexin 500 mg capsule 500 mg PO QID #40 caps 03/10/23 prednisone 10 mg tablets in a dose 10 mg PO DIRECTED #48 ea 03/10/23 pack Allergies Allergy/AdvReac Type Severity Reaction Status Date / Time strawberry [STRAWBERRY] Allergy Severe ANAPHYLAXIS Verified 09/09/20 10:53 aspirin [ASPIRIN] Allergy Unknown SIBLINGS Verified 09/09/20 10:53 WITH BLOOD DISORDER atorvastatin [ATORVASTATIN] Allergy Unknown RASH, Verified 09/09/20 10:53 SWELLING fenofibrate [FENOFIBRATE] Allergy Unknown RASH, Verified 09/09/20 10:53 SWELLING lisinopril [LISINOPRIL] Allergy Unknown RASH,SWELLI Verified 09/09/20 10:53 NG niacin Allergy Unknown RASH,SWELLI Verified 09/09/20 10:53 [From [facility] EXTENDED-RELEASE] poison jory extract Allergy Rash Verified 03/10/23 18:10 poison oak extract Allergy Rash Verified 03/10/23 18:10 poison sumac extract Allergy Rash Verified 03/10/23 18:10 [place] (Diagnostic) Allergy Unknown Unknown Uncoded 09/09/20 10:53 Review of Systems Constitutional: Constitutional: Reports as per HPI, Denies chills, Denies fatigue, Denies fever(s) and Denies headache(s) ENT: Reports otalgia and Denies headache(s) Cardiovascular: Cardiovascular: Denies chest pain and Denies dyspnea Respiratory: Respiratory: Denies cough and Denies dyspnea Gastrointestinal: Gastrointestinal: Denies abdominal pain, Denies constipation and Denies vomiting Genitourinary: Genitourinary: Denies difficulty urinating and Denies dysuria Integumentary/Breasts: Skin/Breast: Reports rash (Rash to left lower leg) and Reports wounds (Wounds to left upper leg) Neurologic: Denies headache(s) and Denies focal weakness Endocrine: Endocrine: Denies fatigue PMFSH Past Medical History Medical History Diabetes [place] War syndrome Prostate cancer PTSD (post-traumatic stress disorder) Surgical History History of back surgery History of prostate surgery Social History Social History Household Members: Family Housing: House Unable to assess alcohol history related to: Unknown Alcohol intake: never Patient Tobacco Use Status: Former Tobacco user Smoked in Last 30 Days: No Use of substances other than those prescribed or required for medical reasons: No Advance Directives: No Advance Directives Information Provided: No service: Yes Current occupational status: employed Physical Exam ED Vital Signs: Vital Signs - 24 hr 03/10/23 18:10 Temperature 96.8 F Pulse Rate 93 Respiratory Rate 20 Blood Pressure 119/56 L Pulse Oximetry 95 Oxygen Delivery Method Room Air BMI result Body Mass Index 58.4 Const General: comfortable, no acute distress, alert and awake Nutritional Appearance: well nourished Orientation/consciousness: patient oriented x3 HENMT Head: Yes normocephalic and Yes atraumatic Eyes Eyelids: Yes eyelids normal Conjunctivae: conjunctivae normal Sclerae: sclerae normal Corneas: corneas normal Pupils: Equal, round and reactive pupils present EOM: EOMs intact bilaterally Neck Neck: Yes full ROM Resp Effort & Inspection: normal respiratory effort, able to speak in complete sentences and not labored Skin Other: Left lower extremity on the anterior surface has an erythematous rash with multiple bulla and some weeping yellowish serous fluid. No purulent drainage. Patient has a small, chronic appearing superficial wound to the left upper leg just proximal to the mid hamstring region. No surrounding erythema. No drainage from the area, no edema. Lastly, the patient has a small scab to the left ear in the upper pinnae. No significant erythema, no fluctuance, no open wound, no drainage. Neuro General: patient oriented x3 Cranial nerves: Yes Equal, round and reactive pupils present and Yes Bilaterally intact EOM present Cognition (Neuro): normal cognition Extrem Other: Moving all extremities well without any obvious deformities Course Course Course Narrative: RME: 57yo M c/o suspected poison jory rash to LLE x mos, L ear pain/erythema & swelling x unknown time, and cyst to buttock region below scrotum. admits cyst to genital region bleeds w/BMs +LLE erythema warmth and weeping. +pitting edema b/l. L ear with small erythema and ttp. EKG, labs, CXR ordered Full HPI, ROS and PE to be performed by primary ED provider. Medical Decision Making Medical Decision Making MDM Narrative: Patient has 3 separate skin complaints. His left ear issue appears to be a small pimple that has been healing well. There is no active bleeding, no surrounding erythema, no purulence. No indication for incision and drainage. The patient's left upper leg wound does appear chronic, does not appear to be acutely infected. Appears to be healing well. Due to the patient's obesity, it is likely that it may open up slightly when he sits down on the toilet as he describes, but again there is no active infection. The patient's left lower leg rash does appear consistent with contact dermatitis/poison jory, however there is a fairly beefy red, erythematous base concerning for developing cellulitis as well. We will treat this with a prednisone Dosepak as well as cephalexin. The patient's lactic acid was elevated 2.4. He has no leukocytosis, he is afebrile, we will treat with IV fluids and we dropped the lactic acid. Differential Diagnosis Contact dermatitis Cellulitis Poison jory Abscess Chronic wound Pressure ulcer Lab Data MDM Lab Attestation statement: I reviewed the patient's lab results. 03/10/23 18:30 03/10/23 18:30 Labs: Lab Results 03/10/23 03/10/23 03/10/23 Range/Units 18:30 18:30 18:30 WBC 7.9 (4.8-10.8) X10*3/uL RBC 4.10 L (4.60-5.80) X10*6/uL Hgb 11.8 L (14.0-18.0) g/dl Hct 35.3 L (42.0-52.0) % MCV 86.1 (80.0-98.0) fL MCH 28.8 (27.0-33.0) pg MCHC 33.4 (31.0-36.0) g/dl RDW 13.7 (11.0-16.0) % Plt Count 218 D (160-400) X10*3/uL MPV 8.7 L (9.4-12.4) fL Immature Gran % (Auto) 0.4 (0.0-0.4) % Neut % (Auto) 75.7 H (45-73) % Lymph % (Auto) 11.1 L (20-40) % [place] % (Auto) 10.0 (2-11) % Eos % (Auto) 2.4 (0-4) % Baso % (Auto) 0.4 (0-2) % Lymph # (Auto) 0.9 L (1.2-4.9) X10*3/uL [place] # (Auto) 0.8 (0.1-1.2) X10*3/uL Eos # (Auto) 0.2 (0.0-0.4) X10*3/uL Baso # (Auto) 0.0 (0.0-0.2) X10*3/uL Abs Immat Gran (auto) 0.03 (0.00-0.03) X10*3/uL Absolute Neuts (auto) 6.0 (2.0-8.3) x10*3/uL Absolute Nucleated RBC 0.000 (0.0-0.012) X10*3/uL Nucleated RBC % (auto) 0.0 (0.0-0.2) /100WBC PT 10.9 (10.0-13.1) SEC INR 1.0 (0.9-1.1) Sodium 140 (135-145) mmol/L Potassium 3.8 (3.3-5.1) mmol/L Chloride 104 (96-108) mmol/L Carbon Dioxide 26 (22-29) mmol/L Anion Gap 14 (12-20) BUN 12 (9-16) mg/dL Creatinine 0.77 (0.5-1.4) mg/dL Estim Creat Clear Calc 213.3 Estimated GFR > 60 Random Glucose 121 H (60-115) mg/dL Lactic Acid (0.5-2.0) mmol/L Calcium 9.2 D (8.4-10.2) mg/dL Total Bilirubin 0.2 (0.0-1.0) mg/dL Direct Bilirubin < 0.2 (0.0-0.5) mg/dL AST 10 (5-37) U/L ALT 18 (0-40) U/L Alkaline Phosphatase 105 (39-117) U/L B-Natriuretic Peptide (<100) pg/mL Total Protein 7.2 (6.5-8.0) g/dL Albumin 4.0 (3.5-5.0) g/dL 03/10/23 03/10/23 Range/Units 18:30 18:30 WBC (4.8-10.8) X10*3/uL RBC (4.60-5.80) X10*6/uL Hgb (14.0-18.0) g/dl Hct (42.0-52.0) % MCV (80.0-98.0) fL MCH (27.0-33.0) pg MCHC (31.0-36.0) g/dl RDW (11.0-16.0) % Plt Count (160-400) X10*3/uL MPV (9.4-12.4) fL Immature Gran % (Auto) (0.0-0.4) % Neut % (Auto) (45-73) % Lymph % (Auto) (20-40) % [place] % (Auto) (2-11) % Eos % (Auto) (0-4) % Baso % (Auto) (0-2) % Lymph # (Auto) (1.2-4.9) X10*3/uL [place] # (Auto) (0.1-1.2) X10*3/uL Eos # (Auto) (0.0-0.4) X10*3/uL Baso # (Auto) (0.0-0.2) X10*3/uL Abs Immat Gran (auto) (0.00-0.03) X10*3/uL Absolute Neuts (auto) (2.0-8.3) x10*3/uL Absolute Nucleated RBC (0.0-0.012) X10*3/uL Nucleated RBC % (auto) (0.0-0.2) /100WBC PT (10.0-13.1) SEC INR (0.9-1.1) Sodium (135-145) mmol/L Potassium (3.3-5.1) mmol/L Chloride (96-108) mmol/L Carbon Dioxide (22-29) mmol/L Anion Gap (12-20) BUN (9-16) mg/dL Creatinine (0.5-1.4) mg/dL Estim Creat Clear Calc Estimated GFR Random Glucose (60-115) mg/dL Lactic Acid 2.4 H* (0.5-2.0) mmol/L Calcium (8.4-10.2) mg/dL Total Bilirubin (0.0-1.0) mg/dL Direct Bilirubin (0.0-0.5) mg/dL AST (5-37) U/L ALT (0-40) U/L Alkaline Phosphatase (39-117) U/L B-Natriuretic Peptide 12 (<100) pg/mL Total Protein (6.5-8.0) g/dL Albumin (3.5-5.0) g/dL Discharge Plan Discharge Clinical Impression: Cellulitis of left leg, Poison jory Patient Disposition: Home, Self-Care Instructions: Cellulitis (ED) Additional Instructions: Take the prednisone Dosepak to treat portion jory left lower leg. It appears that he may be developing a cellulitis the same area, therefore your prescribe cephalexin as well Check your blood sugar frequently while taking prednisone as your sugars likely to increase Return for new or worsening symptoms Follow-up with your primary doctor Prescriptions: New cephalexin 500 mg capsule 500 mg PO QID Qty: 40 0RF prednisone 10 mg tablets,dose pack 10 mg PO DIRECTED Qty: 48 0RF Rx Instructions: see taper instructions No Action quetiapine 25 mg Tablet 25 mg PO QAM quetiapine 25 mg Tablet 12.5 mg PO BEDTIME bupropion HCl [Wellbutrin SR] 150 mg Tablet Sustained-Release 12 Hr 150 mg PO BID acetaminophen 650 mg Tablet 650 mg PO Q4H PRN (Reason: Pain) oxycodone-acetaminophen 5-325 mg Tablet 2 tab PO BID PRN (Reason: Pain) dicyclomine 20 mg Tablet 20 mg PO BID metoprolol tartrate 50 mg Tablet 50 mg PO BID gabapentin 300 mg Capsule 300 mg PO BID loratadine 10 mg Tablet 10 mg PO DAILY fluoxetine 60 mg Tablet 60 mg PO DAILY losartan 50 mg Tablet 50 mg PO DAILY omeprazole 40 mg Capsule,Delayed Release(Dr/Ec) 40 mg PO DAILY sildenafil 100 mg Tablet 100 mg PO DAILY PRN (Reason: Sexual Activity) Rx Instructions: administer 30 minutes to 4 hours before activity psyllium Powder 2 tsp PO BID Rx Instructions: mix into at least 4 oz water or juice before administering terazosin 2 mg Capsule 4 mg PO DAILY multivitamin with minerals Tablet 1 tab PO DAILY rosuvastatin 40 mg Tablet 40 mg PO DAILY insulin glargine 100 unit/mL Cartridge 45 unit SUBCUT DAILY omega-3 fatty acids 500 mg Capsule 1,000 mg PO DAILY insulin aspart (niacinamide) 100 unit/mL Solution 1 - 4 sliding scale dose SUBCUT TIDAC cyclobenzaprine 10 mg Tablet 10 mg PO DAILY PRN (Reason: Muscle Spasm) oxybutynin chloride 15 mg Tablet Extended Release 24hr 15 mg PO DAILY meloxicam 15 mg Tablet 15 mg PO DAILY cyanocobalamin (vitamin B-12) 500 mcg Tablet 2,000 mcg PO DAILY tamsulosin 0.4 mg Capsule 0.8 mg PO BEDTIME amlodipine 2.5 mg Tablet 2.5 mg PO DAILY Qty: 30 0RF Protocol: Hold for SBP< HOLD for SBP < : 90 carvedilol 12.5 mg Tablet 12.5 mg PO BID Qty: 60 0RF Protocol: Hold for SBP/HR < HOLD for SBP < : 90 HOLD for HR < : 60 cefuroxime axetil 500 mg Tablet 500 mg PO BID Qty: 27 0RF
[2023-03-10 18:37] LABS: MANUAL DIFF FLAG NO
[2023-03-10 18:38] LABS: Basophils Percent Auto 0.4 % (0-2); Eosinophils Absolute Auto 0.2 X10*3/uL (0.0-0.4); Eosinophils Percent Auto 2.4 % (0-4); Hematocrit 35.3 % (42.0-52.0); Hemoglobin 11.8 g/dl (14.0-18.0); Imm Gran Abs Auto 0.03 X10*3/uL (0.00-0.03); Imm Gran Pct Auto 0.4 % (0.0-0.4); Lymphocytes Absolute Auto 0.9 X10*3/uL (1.2-4.9); Lymphocytes Percent Auto 11.1 % (20-40); Mean Corpuscular HGB Conc 33.4 g/dl (31.0-36.0); Mean Corpuscular Hemoglobin 28.8 pg (27.0-33.0); Mean Corpuscular Volume 86.1 fL (80.0-98.0); Mean Platelet Volume 8.7 fL (9.4-12.4); Monocytes Absolute Auto 0.8 X10*3/uL (0.1-1.2); Neutrophils Percent Auto 75.7 % (45-73); Platelet Count 218 X10*3/uL (160-400); Red Cell Distribution Width 13.7 % (11.0-16.0); White Blood Count 7.9 X10*3/uL (4.8-10.8)
[2023-03-10 18:43] LABS: Prothrombin Time 10.9 SEC (10.0-13.1)
[2023-03-10 19:07] LABS: Lactic Acid 2.4 mmol/L (0.5-2.0)
[2023-03-10 19:09] LABS: Alanine Aminotransferase 18 U/L (0-40); Alkaline Phosphatase 105 U/L (39-117); Anion Gap 14 (12-20); Aspartate Amino Transferase 10 U/L (5-37); Bilirubin Direct < 0.2 mg/dL (0.0-0.5); Bilirubin Total 0.2 mg/dL (0.0-1.0); Blood Urea Nitrogen 12 mg/dL (9-16); Calcium 9.2 mg/dL (8.4-10.2); Carbon Dioxide 26 mmol/L (22-29); Chloride 104 mmol/L (96-108); Creatinine Clr Calc Pharmacy 213.3; Estimated Glomerular Filt Rate > 60; Glucose Random 121 mg/dL (60-115); Potassium 3.8 mmol/L (3.3-5.1); Sodium 140 mmol/L (135-145); Total Protein 7.2 g/dL (6.5-8.0)
[2023-03-10 19:11] LABS: B Type Natriuretic Peptide 12 pg/mL (<100)
[2023-03-10 20:34] LABS: Reflex Lactate? Lactic Acid Added
[2023-03-10] MEDS: 0.9 % Sodium Chloride 1,000 ML 999 ML IV (20:46)
[2023-03-10 21:15] LABS: ~Lactic Acid-LAB USE ONLY 1.2 mmol/L (0.5-2.0)
== END 2023-03-10 21:32 | disposition home or self-care (01) ==
PROVIDERS: Physician Assistant; Emergency Provider Emergency Medicine; PCP Nurse Practitioner Family
DX: L03.116 Cellulitis of left lower limb (principal); L23.7 Allergic contact dermatitis due to plants, except food; R60.0 Localized edema; H92.02 Otalgia, left ear; R06.02 Shortness of breath; Z79.899 Other long term (current) drug therapy; Z87.891 Personal history of nicotine dependence
CPT/HCPCS: 36415; 71045; 80048; 80076; 83605; 83880; 85025; 85610; 87040; 87147; 87205; 99283; 99284

== ENCOUNTER 2023-03-30 13:53 | Emergency (ER) | payer OTHER, SELFPAY ==
[2023-03-30 14:22] VITALS: BP 127/70; PULSE 80; RESP 18; TEMP 36.6; O2SAT 95; BMI 59.8
--- NOTE | 2023-03-30 14:24 | ED.GENADULT ---
HPI - General Adult General Chief complaint: Wound/Laceration Stated complaint: L leg redness/ooooozing Time Seen by Provider: 03/30/23 19:51 History of Present Illness HPI narrative: Seen by Dr. Morrow Related Data Home Medications Medication Instructions Recorded Confirmed acetaminophen 650 mg tablet 650 mg PO Q4H PRN Pain 11/21/22 11/21/22 bupropion HCl 150 mg tablet,12 hr 150 mg PO BID 11/21/22 11/21/22 sustained-release (Wellbutrin SR) cyanocobalamin (vitamin B-12) 500 2,000 mcg PO DAILY 11/21/22 11/21/22 mcg tablet cyclobenzaprine 10 mg tablet 10 mg PO DAILY PRN Muscle Spasm 11/21/22 11/21/22 dicyclomine 20 mg tablet 20 mg PO BID 11/21/22 11/21/22 fluoxetine 60 mg tablet 60 mg PO DAILY 11/21/22 11/21/22 gabapentin 300 mg capsule 300 mg PO BID 11/21/22 11/21/22 insulin aspart (niacinamide) 1 - 4 sliding scale dose subcut 11/21/22 11/21/22 (U-100) 100 unit/mL subcutaneous TIDAC solution insulin glargine 100 unit/mL 45 unit subcut DAILY 11/21/22 11/21/22 subcutaneous cartridge loratadine 10 mg tablet 10 mg PO DAILY 11/21/22 11/21/22 losartan 50 mg tablet 50 mg PO DAILY 11/21/22 11/21/22 meloxicam 15 mg tablet 15 mg PO DAILY 11/21/22 11/21/22 metoprolol tartrate 50 mg tablet 50 mg PO BID 11/21/22 11/21/22 multivitamin with minerals 1 tab PO DAILY 11/21/22 11/21/22 omega-3 fatty acids 500 mg capsule 1,000 mg PO DAILY 11/21/22 11/21/22 omeprazole 40 mg capsule,delayed 40 mg PO DAILY 11/21/22 11/21/22 release oxybutynin chloride 15 mg 15 mg PO DAILY 11/21/22 11/21/22 tablet,extended release 24 hr oxycodone-acetaminophen 5 mg-325 2 tab PO BID PRN Pain 11/21/22 11/21/22 mg tablet psyllium 2 tsp PO BID 11/21/22 11/21/22 quetiapine 25 mg tablet 12.5 mg PO BEDTIME 11/21/22 11/21/22 quetiapine 25 mg tablet 25 mg PO QAM 11/21/22 11/21/22 rosuvastatin 40 mg tablet 40 mg PO DAILY 11/21/22 11/21/22 sildenafil 100 mg tablet 100 mg PO DAILY PRN Sexual Activity 11/21/22 11/21/22 tamsulosin 0.4 mg capsule 0.8 mg PO BEDTIME 11/21/22 11/21/22 terazosin 2 mg capsule 4 mg PO DAILY 11/21/22 11/21/22 Previous Rx's Medication Instructions Recorded amlodipine 2.5 mg tablet 2.5 mg PO DAILY #30 tabs 11/26/22 carvedilol 12.5 mg tablet 12.5 mg PO BID #60 tabs 11/26/22 cefuroxime axetil 500 mg tablet 500 mg PO BID #27 tabs 11/26/22 cephalexin 500 mg capsule 500 mg PO QID #40 caps 03/10/23 prednisone 10 mg tablets in a dose 10 mg PO DIRECTED #48 ea 03/10/23 pack Allergies Allergy/AdvReac Type Severity Reaction Status Date / Time strawberry [STRAWBERRY] Allergy Severe ANAPHYLAXIS Verified 09/09/20 10:53 aspirin [ASPIRIN] Allergy Unknown SIBLINGS Verified 09/09/20 10:53 WITH BLOOD DISORDER atorvastatin [ATORVASTATIN] Allergy Unknown RASH, Verified 09/09/20 10:53 SWELLING fenofibrate [FENOFIBRATE] Allergy Unknown RASH, Verified 09/09/20 10:53 SWELLING lisinopril [LISINOPRIL] Allergy Unknown RASH,SWELLI Verified 09/09/20 10:53 NG niacin Allergy Unknown RASH,SWELLI Verified 09/09/20 10:53 [From [place] NG EXTENDED-RELEASE] poison [place] extract Allergy Rash Verified 03/10/23 18:10 poison oak extract Allergy Rash Verified 03/10/23 18:10 poison sumac extract Allergy Rash Verified 03/10/23 18:10 [place] (Diagnostic) Allergy Unknown Unknown Uncoded 09/09/20 10:53 [facility] Past Medical History Medical History Constipation Diabetes [place] War syndrome Morbidly obese Prostate cancer PTSD (post-traumatic stress disorder) Surgical History History of back surgery History of prostate surgery Social History Social History Household Members: Family Housing: House Unable to assess alcohol history related to: Unknown Alcohol intake: never Patient Tobacco Use Status: Former Tobacco user Smoked in Last 30 Days: No Use of substances other than those prescribed or required for medical reasons: No Advance Directives: No Advance Directives Information Provided: No service: Yes Current occupational status: employed Physical Exam ED Vital Signs: BMI result Body Mass Index 59.8 Course Course Course Narrative: RME: 57 yold male presents to the ED for left leg infected wound redness with oozing and is on antibiotics oral with no improvement. labs and imaging ordered. Medical Decision Making Lab Data 03/30/23 15:04 03/30/23 15:04 Labs: Lab Results 03/30/23 03/30/23 03/30/23 Range/Units 15:04 15:04 15:04 WBC 6.9 (4.8-10.8) X10*3/uL RBC 3.98 L (4.60-5.80) X10*6/uL Hgb 11.4 L (14.0-18.0) g/dl Hct 34.1 L (42.0-52.0) % MCV 85.7 (80.0-98.0) fL MCH 28.6 (27.0-33.0) pg MCHC 33.4 (31.0-36.0) g/dl RDW 13.7 (11.0-16.0) % Plt Count 223 (160-400) X10*3/uL MPV 8.9 L (9.4-12.4) fL Immature Gran % (Auto) 0.6 H (0.0-0.4) % Neut % (Auto) 70.4 (45-73) % Lymph % (Auto) 14.5 L (20-40) % [place] % (Auto) 11.0 (2-11) % Eos % (Auto) 2.9 (0-4) % Baso % (Auto) 0.6 (0-2) % Lymph # (Auto) 1.0 L (1.2-4.9) X10*3/uL [place] # (Auto) 0.8 (0.1-1.2) X10*3/uL Eos # (Auto) 0.2 (0.0-0.4) X10*3/uL Baso # (Auto) 0.0 (0.0-0.2) X10*3/uL Abs Immat Gran (auto) 0.04 H (0.00-0.03) X10*3/uL Absolute Neuts (auto) 4.8 (2.0-8.3) x10*3/uL Absolute Nucleated RBC 0.000 (0.0-0.012) X10*3/uL Nucleated RBC % (auto) 0.0 (0.0-0.2) /100WBC ESR 33 H (0-15) MM/HR Sodium 138 (135-145) mmol/L Potassium 3.8 (3.3-5.1) mmol/L Chloride 103 (96-108) mmol/L Carbon Dioxide 23 (22-29) mmol/L Anion Gap 16 (12-20) BUN 15 (9-16) mg/dL Creatinine 0.75 (0.5-1.4) mg/dL Estim Creat Clear Calc 222.2 Estimated GFR > 60 POC Glucose (60-115) mg/dL Random Glucose 68 (60-115) mg/dL Lactic Acid (0.5-2.0) mmol/L Calcium 9.4 (8.4-10.2) mg/dL Total Bilirubin 0.2 (0.0-1.0) mg/dL AST 16 (5-37) U/L ALT 24 (0-40) U/L Alkaline Phosphatase 91 (39-117) U/L C-Reactive Protein 0.67 H (< or = 0.50) mg/dL Total Protein 6.9 (6.5-8.0) g/dL Albumin 3.8 (3.5-5.0) g/dL 03/30/23 03/30/23 Range/Units 15:04 20:34 WBC (4.8-10.8) X10*3/uL RBC (4.60-5.80) X10*6/uL Hgb (14.0-18.0) g/dl Hct (42.0-52.0) % MCV (80.0-98.0) fL MCH (27.0-33.0) pg MCHC (31.0-36.0) g/dl RDW (11.0-16.0) % Plt Count (160-400) X10*3/uL MPV (9.4-12.4) fL Immature Gran % (Auto) (0.0-0.4) % Neut % (Auto) (45-73) % Lymph % (Auto) (20-40) % [place] % (Auto) (2-11) % Eos % (Auto) (0-4) % Baso % (Auto) (0-2) % Lymph # (Auto) (1.2-4.9) X10*3/uL [place] # (Auto) (0.1-1.2) X10*3/uL Eos # (Auto) (0.0-0.4) X10*3/uL Baso # (Auto) (0.0-0.2) X10*3/uL Abs Immat Gran (auto) (0.00-0.03) X10*3/uL Absolute Neuts (auto) (2.0-8.3) x10*3/uL Absolute Nucleated RBC (0.0-0.012) X10*3/uL Nucleated RBC % (auto) (0.0-0.2) /100WBC ESR (0-15) MM/HR Sodium (135-145) mmol/L Potassium (3.3-5.1) mmol/L Chloride (96-108) mmol/L Carbon Dioxide (22-29) mmol/L Anion Gap (12-20) BUN (9-16) mg/dL Creatinine (0.5-1.4) mg/dL Estim Creat Clear Calc Estimated GFR POC Glucose 115 (60-115) mg/dL Random Glucose (60-115) mg/dL Lactic Acid 1.9 (0.5-2.0) mmol/L Calcium (8.4-10.2) mg/dL Total Bilirubin (0.0-1.0) mg/dL AST (5-37) U/L ALT (0-40) U/L Alkaline Phosphatase (39-117) U/L C-Reactive Protein (< or = 0.50) mg/dL Total Protein (6.5-8.0) g/dL Albumin (3.5-5.0) g/dL Discharge Plan Discharge Clinical Impression: Chronic wound Patient Disposition: Home, Self-Care Instructions: Wound Healing and Your Diet (ED) Prescriptions: No Action quetiapine 25 mg Tablet 25 mg PO QAM quetiapine 25 mg Tablet 12.5 mg PO BEDTIME bupropion HCl [Wellbutrin SR] 150 mg Tablet Sustained-Release 12 Hr 150 mg PO BID acetaminophen 650 mg Tablet 650 mg PO Q4H PRN (Reason: Pain) oxycodone-acetaminophen 5-325 mg Tablet 2 tab PO BID PRN (Reason: Pain) dicyclomine 20 mg Tablet 20 mg PO BID metoprolol tartrate 50 mg Tablet 50 mg PO BID gabapentin 300 mg Capsule 300 mg PO BID loratadine 10 mg Tablet 10 mg PO DAILY fluoxetine 60 mg Tablet 60 mg PO DAILY losartan 50 mg Tablet 50 mg PO DAILY omeprazole 40 mg Capsule,Delayed Release(Dr/Ec) 40 mg PO DAILY sildenafil 100 mg Tablet 100 mg PO DAILY PRN (Reason: Sexual Activity) Rx Instructions: administer 30 minutes to 4 hours before activity psyllium Powder 2 tsp PO BID Rx Instructions: mix into at least 4 oz water or juice before administering terazosin 2 mg Capsule 4 mg PO DAILY multivitamin with minerals Tablet 1 tab PO DAILY rosuvastatin 40 mg Tablet 40 mg PO DAILY insulin glargine 100 unit/mL Cartridge 45 unit SUBCUT DAILY omega-3 fatty acids 500 mg Capsule 1,000 mg PO DAILY insulin aspart (niacinamide) 100 unit/mL Solution 1 - 4 sliding scale dose SUBCUT TIDAC cyclobenzaprine 10 mg Tablet 10 mg PO DAILY PRN (Reason: Muscle Spasm) oxybutynin chloride 15 mg Tablet Extended Release 24hr 15 mg PO DAILY meloxicam 15 mg Tablet 15 mg PO DAILY cyanocobalamin (vitamin B-12) 500 mcg Tablet 2,000 mcg PO DAILY tamsulosin 0.4 mg Capsule 0.8 mg PO BEDTIME amlodipine 2.5 mg Tablet 2.5 mg PO DAILY Qty: 30 0RF Protocol: Hold for SBP< HOLD for SBP < : 90 carvedilol 12.5 mg Tablet 12.5 mg PO BID Qty: 60 0RF Protocol: Hold for SBP/HR < HOLD for SBP < : 90 HOLD for HR < : 60 cefuroxime axetil 500 mg Tablet 500 mg PO BID Qty: 27 0RF cephalexin 500 mg capsule 500 mg PO QID Qty: 40 0RF prednisone 10 mg tablets,dose pack 10 mg PO DIRECTED Qty: 48 0RF Rx Instructions: see taper instructions Ref[place]: [facility] [place]Provider Group] - 04/01/23 Interventions: ED Discharge Assessment Last Done: 03/30/23 22:11 Discharge Date/Time: 03/30/23 22:11
[2023-03-30 19:54] VITALS: BP 117/50; PULSE 73; RESP 16; TEMP 36.8; O2SAT 93
--- NOTE | 2023-03-30 21:37 | ED.WOUNDLAC ---
HPI - Wound/Laceration General Chief Complaint: Wound/Laceration Stated Complaint: L leg redness/ooooozing Time Seen by Provider: 03/30/23 19:51 History of Present Illness HPI narrative: Patient is 57 years old with a long history diabetes, hypertension, high cholesterol presented today with having leg swelling and leg pain to the left leg. Patient claims that he had a poison bruno contact approximately 1 month ago. Been having a wound over the left leg. Patient been given initially some steroid Medrol Dosepak. It did not help. Subsequently patient was started on Keflex. A course of Keflex did not change patient's wound. Foot was followed by a week course of doxycycline. Also no changes. Patient was seen at [facility] approximately 5 days ago. Told to follow-up with wound care. Patient states the wound is not getting any better. He was unable to get into wound care. He came to the emergency department at [facility] instead. He denies any fever chills. He said the wound is approximately the same. There is no fever no chills. There is no systemic complaints. But the wound is not getting any better. He is has a long history of diabetes. He did not have any fever or chills. He did not have any focal weakness he is able to ambulate. Related Data Home Medications Medication Instructions Recorded Confirmed acetaminophen 650 mg tablet 650 mg PO Q4H PRN Pain 11/21/22 11/21/22 bupropion HCl 150 mg tablet,12 hr 150 mg PO BID 11/21/22 11/21/22 sustained-release (Wellbutrin SR) cyanocobalamin (vitamin B-12) 500 2,000 mcg PO DAILY 11/21/22 11/21/22 mcg tablet cyclobenzaprine 10 mg tablet 10 mg PO DAILY PRN Muscle Spasm 11/21/22 11/21/22 dicyclomine 20 mg tablet 20 mg PO BID 11/21/22 11/21/22 fluoxetine 60 mg tablet 60 mg PO DAILY 11/21/22 11/21/22 gabapentin 300 mg capsule 300 mg PO BID 11/21/22 11/21/22 insulin aspart (niacinamide) 1 - 4 sliding scale dose subcut 11/21/22 11/21/22 (U-100) 100 unit/mL subcutaneous TIDAC solution insulin glargine 100 unit/mL 45 unit subcut DAILY 11/21/22 11/21/22 subcutaneous cartridge loratadine 10 mg tablet 10 mg PO DAILY 11/21/22 11/21/22 losartan 50 mg tablet 50 mg PO DAILY 11/21/22 11/21/22 meloxicam 15 mg tablet 15 mg PO DAILY 11/21/22 11/21/22 metoprolol tartrate 50 mg tablet 50 mg PO BID 11/21/22 11/21/22 multivitamin with minerals 1 tab PO DAILY 11/21/22 11/21/22 omega-3 fatty acids 500 mg capsule 1,000 mg PO DAILY 11/21/22 11/21/22 omeprazole 40 mg capsule,delayed 40 mg PO DAILY 11/21/22 11/21/22 release oxybutynin chloride 15 mg 15 mg PO DAILY 11/21/22 11/21/22 tablet,extended release 24 hr oxycodone-acetaminophen 5 mg-325 2 tab PO BID PRN Pain 11/21/22 11/21/22 mg tablet psyllium 2 tsp PO BID 11/21/22 11/21/22 quetiapine 25 mg tablet 12.5 mg PO BEDTIME 11/21/22 11/21/22 quetiapine 25 mg tablet 25 mg PO QAM 11/21/22 11/21/22 rosuvastatin 40 mg tablet 40 mg PO DAILY 11/21/22 11/21/22 sildenafil 100 mg tablet 100 mg PO DAILY PRN Sexual Activity 11/21/22 11/21/22 tamsulosin 0.4 mg capsule 0.8 mg PO BEDTIME 11/21/22 11/21/22 terazosin 2 mg capsule 4 mg PO DAILY 11/21/22 11/21/22 Previous Rx's Medication Instructions Recorded amlodipine 2.5 mg tablet 2.5 mg PO DAILY #30 tabs 11/26/22 carvedilol 12.5 mg tablet 12.5 mg PO BID #60 tabs 11/26/22 cefuroxime axetil 500 mg tablet 500 mg PO BID #27 tabs 11/26/22 cephalexin 500 mg capsule 500 mg PO QID #40 caps 03/10/23 prednisone 10 mg tablets in a dose 10 mg PO DIRECTED #48 ea 03/10/23 pack Allergies Allergy/AdvReac Type Severity Reaction Status Date / Time strawberry [STRAWBERRY] Allergy Severe ANAPHYLAXIS Verified 09/09/20 10:53 aspirin [ASPIRIN] Allergy Unknown SIBLINGS Verified 09/09/20 10:53 WITH BLOOD DISORDER atorvastatin [ATORVASTATIN] Allergy Unknown RASH, Verified 09/09/20 10:53 SWELLING fenofibrate [FENOFIBRATE] Allergy Unknown RASH, Verified 09/09/20 10:53 SWELLING lisinopril [LISINOPRIL] Allergy Unknown RASH,SWELLI Verified 09/09/20 10:53 NG niacin Allergy Unknown RASH,SWELLI Verified 09/09/20 10:53 [From NIASPAN NG EXTENDED-RELEASE] poison bruno extract Allergy Rash Verified 03/10/23 18:10 poison oak extract Allergy Rash Verified 03/10/23 18:10 poison sumac extract Allergy Rash Verified 03/10/23 18:10 Phelan (Diagnostic) Allergy Unknown Unknown Uncoded 09/09/20 10:53 Review of Systems Review of Systems: Positive left leg wound Yes all other systems are reviewed and are negative PMFSH Past Medical History Attestation statement: The following information was validated with the patient. Medical History Constipation Diabetes [place] War syndrome Morbidly obese Prostate cancer PTSD (post-traumatic stress disorder) Surgical History History of back surgery History of prostate surgery Social History Social History Household Members: Family Housing: House Unable to assess alcohol history related to: Unknown Alcohol intake: never Patient Tobacco Use Status: Former Tobacco user Smoked in Last 30 Days: No Use of substances other than those prescribed or required for medical reasons: No Advance Directives: No Advance Directives Information Provided: No service: Yes Current occupational status: employed Physical Exam Vital Signs: Vital Signs: Last Vital Signs Temp 98.3 F 03/30/23 19:54 Pulse 73 03/30/23 19:54 Resp 16 03/30/23 19:54 BP 117/50 L 03/30/23 19:54 Pulse Ox 93 03/30/23 19:54 O2 Del Method Room Air 03/30/23 19:54 BMI result Body Mass Index 59.8 Appearance: Alert. Oriented X3. No acute distress. Eyes: Pupils equal, round and reactive to light. ENT: Pharynx normal. Neck: Normal inspection. Neck supple. No lymph nodes noted. No crepitus CVS: Normal heart rate and rhythm. Pulses normal. Normal S1 and S2 Respiratory: No respiratory distress. Breath sounds normal. No Wheezing. No rales Abdomen: Soft and nontender. No rigidity. No distention. good BS x4 Skin: Positive redness to the left leg. Slightly warm to touch. Approximately equal in terms of temperature bilaterally. Patient has a large red wound over the lower leg extending to the dorsum of the foot. With multiple ulcers that seems to be chronic draining serous type material. They were dressed. Per patient this is approximately the same as it was 3 days ago. Extremities: No lower extremity edema. Neurovascular intact to all extremities. No Lacerations. Distal pulses intact. Able to ambulate without any issues Neuro: Oriented X 3. No motor deficit. No sensory deficit. Moving all extermities. No slurred speech Medical Decision Making Medical Decision Making [facility] Narrative: Patient has a chronic wound to the left leg that appear red, with multiple ulcers that has serous drainage. Failed outpatient treatment with 2 courses of antibiotics. Patient's white count however is normal. Minimal elevation in sed rate and ESR. Case discussed with the hospitalist team for possible infection. After consultation by the hospitalist team. Deputy it is more of a chronic wound not grossly infected. Do not recommend using antibiotics for now. Recommend close follow-up. Will refer patient to the wound center. Currently in stable condition. Symptoms not consistent with DVT. Patient ambulates with no ill affects. My interpretation of patient's tib-fib x-ray was grossly negative for any acute evidence of fracture. Differential Diagnosis Differential Diagnoses: The differential diagnosis associated with the presentation includes Cellulitis, chronic wound, fracture Consult Healthcare Provider Management of the patient was discussed with: Hospitalist Lab Data [facility] Lab Attestation statement: I reviewed the patient's lab results. 03/30/23 15:04 03/30/23 15:04 Labs: Lab Results 03/30/23 03/30/23 03/30/23 Range/Units 15:04 15:04 15:04 WBC 6.9 (4.8-10.8) X10*3/uL RBC 3.98 L (4.60-5.80) X10*6/uL Hgb 11.4 L (14.0-18.0) g/dl Hct 34.1 L (42.0-52.0) % MCV 85.7 (80.0-98.0) fL MCH 28.6 (27.0-33.0) pg MCHC 33.4 (31.0-36.0) g/dl RDW 13.7 (11.0-16.0) % Plt Count 223 (160-400) X10*3/uL MPV 8.9 L (9.4-12.4) fL Immature Gran % (Auto) 0.6 H (0.0-0.4) % Neut % (Auto) 70.4 (45-73) % Lymph % (Auto) 14.5 L (20-40) % [place] % (Auto) 11.0 (2-11) % Eos % (Auto) 2.9 (0-4) % Baso % (Auto) 0.6 (0-2) % Lymph # (Auto) 1.0 L (1.2-4.9) X10*3/uL [place] # (Auto) 0.8 (0.1-1.2) X10*3/uL Eos # (Auto) 0.2 (0.0-0.4) X10*3/uL Baso # (Auto) 0.0 (0.0-0.2) X10*3/uL Abs Immat Gran (auto) 0.04 H (0.00-0.03) X10*3/uL Absolute Neuts (auto) 4.8 (2.0-8.3) x10*3/uL Absolute Nucleated RBC 0.000 (0.0-0.012) X10*3/uL Nucleated RBC % (auto) 0.0 (0.0-0.2) /100WBC ESR 33 H (0-15) MM/HR Sodium 138 (135-145) mmol/L Potassium 3.8 (3.3-5.1) mmol/L Chloride 103 (96-108) mmol/L Carbon Dioxide 23 (22-29) mmol/L Anion Gap 16 (12-20) BUN 15 (9-16) mg/dL Creatinine 0.75 (0.5-1.4) mg/dL Estim Creat Clear Calc 222.2 Estimated GFR > 60 Random Glucose 68 (60-115) mg/dL Lactic Acid (0.5-2.0) mmol/L Calcium 9.4 (8.4-10.2) mg/dL Total Bilirubin 0.2 (0.0-1.0) mg/dL AST 16 (5-37) U/L ALT 24 (0-40) U/L Alkaline Phosphatase 91 (39-117) U/L C-Reactive Protein 0.67 H (< or = 0.50) mg/dL Total Protein 6.9 (6.5-8.0) g/dL Albumin 3.8 (3.5-5.0) g/dL 03/30/23 Range/Units 15:04 WBC (4.8-10.8) X10*3/uL RBC (4.60-5.80) X10*6/uL Hgb (14.0-18.0) g/dl Hct (42.0-52.0) % MCV (80.0-98.0) fL MCH (27.0-33.0) pg MCHC (31.0-36.0) g/dl RDW (11.0-16.0) % Plt Count (160-400) X10*3/uL MPV (9.4-12.4) fL Immature Gran % (Auto) (0.0-0.4) % Neut % (Auto) (45-73) % Lymph % (Auto) (20-40) % [place] % (Auto) (2-11) % Eos % (Auto) (0-4) % Baso % (Auto) (0-2) % Lymph # (Auto) (1.2-4.9) X10*3/uL [place] # (Auto) (0.1-1.2) X10*3/uL Eos # (Auto) (0.0-0.4) X10*3/uL Baso # (Auto) (0.0-0.2) X10*3/uL Abs Immat Gran (auto) (0.00-0.03) X10*3/uL Absolute Neuts (auto) (2.0-8.3) x10*3/uL Absolute Nucleated RBC (0.0-0.012) X10*3/uL Nucleated RBC % (auto) (0.0-0.2) /100WBC ESR (0-15) MM/HR Sodium (135-145) mmol/L Potassium (3.3-5.1) mmol/L Chloride (96-108) mmol/L Carbon Dioxide (22-29) mmol/L Anion Gap (12-20) BUN (9-16) mg/dL Creatinine (0.5-1.4) mg/dL Estim Creat Clear Calc Estimated GFR Random Glucose (60-115) mg/dL Lactic Acid 1.9 (0.5-2.0) mmol/L Calcium (8.4-10.2) mg/dL Total Bilirubin (0.0-1.0) mg/dL AST (5-37) U/L ALT (0-40) U/L Alkaline Phosphatase (39-117) U/L C-Reactive Protein (< or = 0.50) mg/dL Total Protein (6.5-8.0) g/dL Albumin (3.5-5.0) g/dL Independent Interpretation I performed an independent interpretation of an: Plain X-Ray Interpretation: Tib-fib x-rays are grossly negative Chronic Conditions Patient?s care impacted by: Diabetes Discharge Plan Discharge Clinical Impression: Chronic wound Patient Disposition: Home, Self-Care Instructions: Wound Healing and Your Diet (ED) Prescriptions: No Action quetiapine 25 mg Tablet 25 mg PO QAM quetiapine 25 mg Tablet 12.5 mg PO BEDTIME bupropion HCl [Wellbutrin SR] 150 mg Tablet Sustained-Release 12 Hr 150 mg PO BID acetaminophen 650 mg Tablet 650 mg PO Q4H PRN (Reason: Pain) oxycodone-acetaminophen 5-325 mg Tablet 2 tab PO BID PRN (Reason: Pain) dicyclomine 20 mg Tablet 20 mg PO BID metoprolol tartrate 50 mg Tablet 50 mg PO BID gabapentin 300 mg Capsule 300 mg PO BID loratadine 10 mg Tablet 10 mg PO DAILY fluoxetine 60 mg Tablet 60 mg PO DAILY losartan 50 mg Tablet 50 mg PO DAILY omeprazole 40 mg Capsule,Delayed Release(Dr/Ec) 40 mg PO DAILY sildenafil 100 mg Tablet 100 mg PO DAILY PRN (Reason: Sexual Activity) Rx Instructions: administer 30 minutes to 4 hours before activity psyllium Powder 2 tsp PO BID Rx Instructions: mix into at least 4 oz water or juice before administering terazosin 2 mg Capsule 4 mg PO DAILY multivitamin with minerals Tablet 1 tab PO DAILY rosuvastatin 40 mg Tablet 40 mg PO DAILY insulin glargine 100 unit/mL Cartridge 45 unit SUBCUT DAILY omega-3 fatty acids 500 mg Capsule 1,000 mg PO DAILY insulin aspart (niacinamide) 100 unit/mL Solution 1 - 4 sliding scale dose SUBCUT TIDAC cyclobenzaprine 10 mg Tablet 10 mg PO DAILY PRN (Reason: Muscle Spasm) oxybutynin chloride 15 mg Tablet Extended Release 24hr 15 mg PO DAILY meloxicam 15 mg Tablet 15 mg PO DAILY cyanocobalamin (vitamin B-12) 500 mcg Tablet 2,000 mcg PO DAILY tamsulosin 0.4 mg Capsule 0.8 mg PO BEDTIME amlodipine 2.5 mg Tablet 2.5 mg PO DAILY Qty: 30 0RF Protocol: Hold for SBP< HOLD for SBP < : 90 carvedilol 12.5 mg Tablet 12.5 mg PO BID Qty: 60 0RF Protocol: Hold for SBP/HR < HOLD for SBP < : 90 HOLD for HR < : 60 cefuroxime axetil 500 mg Tablet 500 mg PO BID Qty: 27 0RF cephalexin 500 mg capsule 500 mg PO QID Qty: 40 0RF prednisone 10 mg tablets,dose pack 10 mg PO DIRECTED Qty: 48 0RF Rx Instructions: see taper instructions Referrals: [facility] [place] Wound Care Management [Provider Group] - 04/01/23
== END 2023-03-30 22:11 | disposition home or self-care (01) ==
PROVIDERS: Emergency Provider Emergency Medicine Emergency Medical Services; PCP Nurse Practitioner Family
DX: L97.829 Non-pressure chronic ulcer of other part of left lower leg with unspecified severity (principal); M79.605 Pain in left leg; E11.9 Type 2 diabetes mellitus without complications; Z79.899 Other long term (current) drug therapy; Z79.4 Long term (current) use of insulin
CPT/HCPCS: 36415; 73590; 80053; 82947; 83605; 85025; 85652; 86140; 87040; 99283; 99284

== ENCOUNTER 2023-05-28 13:58 | Outpatient (AMB) | payer OTHER, SELFPAY ==
[2023-05-28 13:57] VITALS: BP 142/86; PULSE 83; O2SAT 96; BMI 59.8
--- NOTE | 2023-05-28 13:57 | MHC.OFFVIS ---
Intake Vital Signs 05/28/23 13:57 Height 6 ft 4 in Weight 491 lb BMI 59.8 BP 142/86 H Blood Pressure Location Rt brachial Position Sitting Pulse 83 Pulse Source Pulse Oximeter Pulse Oximetry (%) 96 Oxygen Delivery Method Room Air Intake Visit Reasons: [employer] Ref for [facility] w/ Ulcers Intake Note: [employer]/ [facility] for Left Leg cellulitis w/ ulcers, was seen at hospital and given ABx. Pt states he gets his dressing change due to incontinence. Pt states he has a visiting nurse comes in 2 times a week through the [place] wound care clinic. Pt states he has swelling,pain, stinging,burning, and secretions coming out of his left leg. Allergies strawberry [STRAWBERRY] Allergy (Severe, Verified 05/28/23 14:07) ANAPHYLAXIS aspirin [ASPIRIN] Allergy (Unknown, Verified 05/28/23 14:07) SIBLINGS WITH BLOOD DISORDER atorvastatin [ATORVASTATIN] Allergy (Unknown, Verified 05/28/23 14:07) RASH, SWELLING fenofibrate [FENOFIBRATE] Allergy (Unknown, Verified 05/28/23 14:07) RASH, SWELLING lisinopril [LISINOPRIL] Allergy (Unknown, Verified 05/28/23 14:07) RASH,SWELLING niacin [From NIASPAN EXTENDED-RELEASE] Allergy (Unknown, Verified 05/28/23 14:07) RASH,SWELLING poison bruno extract Allergy (Verified 05/28/23 14:07) Rash poison oak extract Allergy (Verified 05/28/23 14:07) Rash poison sumac extract Allergy (Verified 05/28/23 14:07) Rash Schneider (Diagnostic) Allergy (Unknown, Uncoded 05/28/23 14:07) Unknown HPI [employer]/[facility] Ref for PVD w/ Ulcers HPI Details morbidly obese 58-year-old gentleman presents for evaluation regarding nonhealing left lower extremity ulcers. [facility] He has significantly swollen lower extremities in particular left side. He reports that this all began back in October and what they thought was originally a reaction to poison bruno. He was subsequently treated with steroids with no the improvement. Continue to progress and he has now an open denuded area insert coiling the entire left calf. He has been treated with compressive wraps. He now presents to us for vascular evaluation. [facility] Medical History Constipation Diabetes [place] War syndrome Morbidly obese Prostate cancer PTSD (post-traumatic stress disorder) Surgical History History of back surgery History of prostate surgery Social History Household Members: Family Housing: House Unable to assess alcohol history related to: Unknown Alcohol intake: never Patient Tobacco Use Status: Former Tobacco user service: Yes Current occupational status: employed Review of Systems Const Reports as per HPI ENT Reports no additional complaints Card Denies chest pain, Denies chest pain at rest and Denies chest pain with activity Resp Denies chest congestion and Denies cough GI Reports no additional complaints Musc Details: pain over varicosities, aching of lower extremities, swelling, cramping, heaviness and tiredness, itching Denies abnormal gait Skin/Breast Reports pruritus and Denies wounds Neuro Reports no additional complaints and Denies abnormal gait Psych Denies no additional complaints Physical Exam Vital Signs: Last Vital Signs Pulse 83 05/28/23 13:57 BP 142/86 H 05/28/23 13:57 Pulse Ox 96 05/28/23 13:57 Oxygen Delivery Method Room Air 05/28/23 13:57 BMI result Body Mass Index 59.8 Const General: cooperative, healthy appearing and comfortable Orientation/consciousness: oriented to person, oriented to place and oriented to time Neck Carotids: no bruits Chest Chest palpation & inspection: normal inspection of the chest and normal palpation of entire chest wall Resp Effort & Inspection: normal respiratory effort and able to speak in complete sentences Cardio Rate: regular rate Heart sounds: S1 normal heart sound present and S2 normal heart sound present Peripheral pulses: Peripheral pulses 2+ throughout GI Inspection: Yes normal to inspection Skin Other: +3 edema, large rope-like varicosities greater than 4 mm Left greater than right CEAP Classification C6 - open ulcer encompassing the entire left calf. Ep - Etiology Primary As - superficial veins P - reflux General skin exam: dry skin Neuro General: oriented to person, oriented to place and oriented to time Extrem Right lower extremity: full ROM, normal capillary refill and edema Left lower extremity: full ROM, normal capillary refill and edema Psych Mental Status: mental status grossly normal Assessment & Plan Assessment & Plan (1) Varicose veins of left lower extremity with inflammation: Code(s): I83.12 - Varicose veins of left lower extremity with inflammation Plan: In short patient has nonhealing left lower extremity ulcers. He does have palpable arterial pulses. I have taken the liberty of ordering venous insufficiency testing to rule that out. After that will need Cook aggressive compressive therapy in order to heal this ulcer. once again he will follow up after venous insufficiency testing. Thank you for allowing us to assist in his care. Orders: Orders US venous duplex LE BI 1 Week I83.12 - Varicose veins of left lower extremity with inflammation Coding Level of Care Code New Pt Level 4 (06212) Diagnoses Varicose veins of left lower extremity with inflammation I83.12
== END 2023-05-28 14:52 | disposition home or self-care (01) ==
PROVIDERS: PCP Nurse Practitioner Family; Visit Provider Surgery Vascular Surgery
DX: I83.029 Varicose veins of left lower extremity with ulcer of unspecified site (principal)
CPT/HCPCS: 99204

== ENCOUNTER → 2023-05-28 13:58 | Outpatient (BNVA) | payer OTHER, SELFPAY | PROVIDERS: PCP Nurse Practitioner Family; Visit Provider Surgery Vascular Surgery | DX: I83.229 Varicose veins of left lower extremity with both ulcer of unspecified site and inflammation (principal); L97.929 Non-pressure chronic ulcer of unspecified part of left lower leg with unspecified severity | CPT/HCPCS: 99202 ==

== ENCOUNTER 2023-06-12 13:44 | Outpatient (RCR) | payer OTHER, SELFPAY | END 2023-10-16 17:00 | disposition home or self-care (01) | LOC: HO.WCC 13:44 | PROVIDERS: PCP Nurse Practitioner Family; Visit Provider Physician Assistant | DX: E11.622 Type 2 diabetes mellitus with other skin ulcer (principal); E11.51 Type 2 diabetes mellitus with diabetic peripheral angiopathy without gangrene; L98.491 Non-pressure chronic ulcer of skin of other sites limited to breakdown of skin; L30.9 Dermatitis, unspecified; I87.2 Venous insufficiency (chronic) (peripheral); I89.0 Lymphedema, not elsewhere classified; I10 Essential (primary) hypertension; E11.40 Type 2 diabetes mellitus with diabetic neuropathy, unspecified; R32 Unspecified urinary incontinence; Z92.3 Personal history of irradiation; Z87.891 Personal history of nicotine dependence | CPT/HCPCS: 11042; 11045; 97597; 99212; 99213; 99214 ==

== ENCOUNTER 2023-06-16 12:57 | Outpatient (REF) | payer OTHER, SELFPAY ==
--- NOTE | ~2023-06-16 | US_ITS ---
EXAMINATION: US LOWER EXTREMITY VENOUS (REFLUX EXAM), BILATERAL CLINICAL INDICATION: Varicose veins COMPARISON: None. TECHNIQUE: Color flow triplex imaging and compression Doppler was performed to evaluate both the deep and the superficial systems bilaterally. To evaluate the superficial system, the examination was performed in the upright position. Color-flow Doppler ultrasound and compression ultrasound were utilized. In addition, maneuvers were utilized to demonstrate reflux. FINDINGS: 1. DEEP VENOUS ULTRASOUND OF THE RIGHT LOWER EXTREMITY: Common Femoral Vein: Compressible, normal respiratory variation and augmented flow. Femoral Vein: Compressible, normal color flow and augmentation. Popliteal Vein: Compressible, normal augmentation. Deep Reflux: There is no evidence of reflux in the deep system in either the common femoral vein or the popliteal vein. There is no evidence of a Nicholson's cyst. 2. SUPERFICIAL ULTRASOUND WITH DOPPLER OF RIGHT LOWER EXTREMITY: GREAT SAPHENOUS VEIN: Saphenofemoral Junction: 0.7 cm; Reflux: 0 ms Proximal Thigh: 0.7 cm; Reflux: 0 ms Mid Thigh: 0.5 cm; Reflux: 0 ms Above Knee: 0.5 cm; Reflux: 0 ms At Knee: 0.4 cm; Reflux: 0 ms Below Knee: 0.4 cm; Reflux: 0 ms Mid Calf: 0.4 cm; Reflux: 0 ms Ankle: 0.4 cm; Reflux: 2068 ms DUPLICATED MEDIAL GREAT SAPHENOUS VEIN: Diameter: None imaged Reflux: NA DUPLICATED LATERAL GREAT SAPHENOUS VEIN: Diameter: None imaged Reflux: NA SMALL SAPHENOUS VEIN: Proximal: 0.24 cm; Reflux: 0 ms Distal: 0.2 cm; Reflux: 0 ms VEIN OF GIACOMINI: Size: NA Reflux: NA PERFORATORS: Location: [place] Size: 0.3cm Reflux: NA VARICOSITIES: Location: Multiple thigh Size: 0.5 cm Reflux: NA 3. DEEP VENOUS ULTRASOUND OF THE LEFT LOWER EXTREMITY: Common Femoral Vein: Compressible, normal respiratory variation and augmented flow. Femoral Vein: Compressible, normal color flow and augmentation. Popliteal Vein: Compressible, normal augmentation. Deep Reflux: There is no evidence of reflux in the deep system in either the common femoral vein or the popliteal vein. There is no evidence of a Nicholson's cyst. 4. SUPERFICIAL ULTRASOUND WITH DOPPLER OF LEFT LOWER EXTREMITY: GREAT SAPHENOUS VEIN: Saphenofemoral Junction: 0.7 cm; Reflux: 0 ms Proximal Thigh: 0.8 cm; Reflux: 0 ms Mid Thigh: 0.5 cm; Reflux: 0 ms Above Knee: 0.6 cm; Reflux: 0 ms At Knee: 0.6 cm; Reflux: 0 ms Below Knee: 0.5 cm; Reflux: 752 ms Mid Calf: 0.4 cm; Reflux: 0 ms Ankle: wound DUPLICATED MEDIAL GREAT SAPHENOUS VEIN: Diameter: None imaged Reflux: NA DUPLICATED LATERAL GREAT SAPHENOUS VEIN: Diameter: None imaged Reflux: NA SMALL SAPHENOUS VEIN: Proximal: 0.3 cm; Reflux: 0 ms Distal: 0.3 cm; Reflux: 0 ms VEIN OF GIACOMINI: Size: NA Reflux: NA PERFORATORS: Location: Proximal thigh Size: 0.5 cm Reflux: NA VARICOSITIES: Location: Multiple thigh and at the knee Size: 0.4-0.5 cm Reflux: NA US/US venous duplex LE BI IMPRESSION: Bilateral small saphenous venous insufficiency. Bilateral thigh and calf perforators and varicose veins.
== END 2023-06-16 12:58 | disposition home or self-care (01) ==
LOC: HO.US 12:57
PROVIDERS: Visit Provider Surgery Vascular Surgery
DX: I83.12 Varicose veins of left lower extremity with inflammation (principal)
CPT/HCPCS: 93970

== ENCOUNTER 2023-07-21 14:05 | Outpatient (AMB) | payer OTHER, SELFPAY ==
--- NOTE | 2023-07-21 14:11 | A.OFFVIS_ITS ---
Intake Vital Signs 07/21/23 14:12 Height 6 ft 4 in Weight 491 lb BMI 59.8 Intake Visit Reasons: Venous Duplex fu Intake Note: follow up US 06/16/23 w/ hx of Left LE cellulitis and ulcers. [place] [facility] [place] [facility] and has VNA twice per week, completed Abx from hospital admission back in April. Does have some blisters on the Left LE and some new blisters forming on the right LE. Has bilateral LE swelling and some serous drainage from blisters. Accompanied by: Self / Same As Patient Allergies strawberry [STRAWBERRY] Allergy (Severe, Verified 07/21/23 14:18) ANAPHYLAXIS aspirin [ASPIRIN] Allergy (Unknown, Verified 07/21/23 14:18) SIBLINGS WITH BLOOD DISORDER atorvastatin [ATORVASTATIN] Allergy (Unknown, Verified 07/21/23 14:18) RASH, SWELLING fenofibrate [FENOFIBRATE] Allergy (Unknown, Verified 07/21/23 14:18) RASH, SWELLING lisinopril [LISINOPRIL] Allergy (Unknown, Verified 07/21/23 14:18) RASH,SWELLING niacin [From NIASPAN EXTENDED-RELEASE] Allergy (Unknown, Verified 07/21/23 14:18) RASH,SWELLING poison bruno extract Allergy (Verified 07/21/23 14:18) Rash poison oak extract Allergy (Verified 07/21/23 14:18) Rash poison sumac extract Allergy (Verified 07/21/23 14:18) Rash [place] (Diagnostic) Allergy (Unknown, Uncoded 07/21/23 14:18) Unknown HPI Venous Duplex fu HPI Details Morbidly obese 58-year-old gentleman presents for follow-up regarding venous insufficiency. He has significantly swollen lower extremities with prior blistering and ulceration. [facility]. He has pain and discomfort. He now presents for ultrasound follow-up. [facility] Medical History Constipation Morbidly obese Prostate cancer Diabetes [place] syndrome PTSD (post-traumatic stress disorder) Surgical History History of prostate surgery History of back surgery Social History Household Members: Family Housing: House Unable to assess alcohol history related to: Unknown Alcohol intake: never Patient Tobacco Use Status: Former Tobacco user service: Yes Current occupational status: employed Review of Systems Const Reports as per HPI ENT Reports no additional complaints Card Denies chest pain, Denies chest pain at rest and Denies chest pain with activity Resp Denies chest congestion and Denies cough GI Reports no additional complaints Musc Details: pain over varicosities, aching of lower extremities, swelling, cramping, heaviness and tiredness, itching Denies abnormal gait Skin/Breast Reports pruritus and Denies wounds Neuro Reports no additional complaints and Denies abnormal gait Psych Denies no additional complaints Physical Exam Vital Signs: BMI result Body Mass Index 59.8 Const General: cooperative, healthy appearing and comfortable Orientation/consciousness: oriented to person, oriented to place and oriented to time Neck Carotids: no bruits Chest Chest palpation & inspection: normal inspection of the chest and normal palpation of entire chest wall Resp Effort & Inspection: normal respiratory effort and able to speak in complete sentences Cardio Rate: regular rate Heart sounds: S1 normal heart sound present and S2 normal heart sound present Peripheral pulses: Peripheral pulses 2+ throughout GI Inspection: Yes normal to inspection Skin Other: +2 edema, large rope-like varicosities greater than 4 mm CEAP Classification C4 - skin color changes Ep - Etiology Primary As - superficial veins P - reflux General skin exam: dry skin Neuro General: oriented to person, oriented to place and oriented to time Extrem Other: Lymphedema measure at waist 179 cm Right lower extremity: full ROM, normal capillary refill and edema Left lower extremity: full ROM, normal capillary refill and edema Psych Mental Status: mental status grossly normal Results Reviewed Results Reviewed: Brief summary of venous insufficiency testing is as follows: right great saphenous vein: negative right small saphenous vein: negative right accessory vein: none present left great saphenous vein: negative left small saphenous vein: negative left accessory vein: none present Please note there is no evidence of any venous aneurysms or significant tortuosity Assessment & Plan Assessment & Plan (1) Lymphedema: Code(s): I89.0 - Lymphedema, not elsewhere classified Plan: In short the patient has late on sent lymphedema. The patient has been on conservative treatment for at least 3 months with minimal relief. Patient has tried 30 mm of mercury compression garments, elevation, exercise healthy diet and doing manual says self MLD to the best of their ability for over 4 weeks but with no significant relief. She has been compliant with the program but has provided minimal relief. In addition on physical we are noticing swelling and nonhealing ulcers.. It appears that she has stage 2 lymphedema. Patient has completed multiple forms of conservative therapy yet significant symptoms remain. He has used lymphedema pump therapy up to the thigh which have thus provided minimal relief. He has persistent significant truncal swelling as well. The patient would benefit from a flexi touch advance compression pump to help address the truncal edema which is previous pumps do not addressed. We will try to help coordinate this for him. (2) Varicose veins of left lower extremity with inflammation: Code(s): I83.12 - Varicose veins of left lower extremity with inflammation Plan: Patient is negative for any significant venous insufficiency. It appears that the majority of this is lymphedema related. We did have an extensive discussion about compliance and risk factor modification in addition to weight loss and the importance of ambulation. The patient will follow up with us on an as-needed basis. Thank you for allowing us to assist in her care. Coding Level of Care Code Est Pt Level 4 (10305) Diagnoses Lymphedema I89.0 Varicose veins of left lower extremity with inflammation I83.12
[2023-07-21 14:12] VITALS: BMI 59.8
== END 2023-07-21 14:47 | disposition home or self-care (01) ==
PROVIDERS: PCP Nurse Practitioner Family; Visit Provider Surgery Vascular Surgery
DX: I89.0 Lymphedema, not elsewhere classified (principal); I83.12 Varicose veins of left lower extremity with inflammation
CPT/HCPCS: 99214

== ENCOUNTER → 2023-07-21 14:05 | Outpatient (BNVA) | payer OTHER, SELFPAY | PROVIDERS: PCP Nurse Practitioner Family; Visit Provider Surgery Vascular Surgery | DX: I83.12 Varicose veins of left lower extremity with inflammation (principal); I89.0 Lymphedema, not elsewhere classified; E66.01 Morbid (severe) obesity due to excess calories; F43.10 Post-traumatic stress disorder, unspecified; Z87.891 Personal history of nicotine dependence; Z68.43 Body mass index [BMI] 50.0-59.9, adult; Z91.82 Personal history of military deployment; Z91.85 Personal history of military service | CPT/HCPCS: 99212 ==

== ENCOUNTER 2023-08-21 19:37 | Emergency (ER) | payer OTHER, SELFPAY ==
[2023-08-21 20:11] VITALS: BP 126/50; PULSE 75; RESP 16; TEMP 36.2; O2SAT 96; BMI 60.0
--- NOTE | 2023-08-21 20:16 | ED.GENADULT ---
HPI - General Adult General Chief complaint: Urogenital-Male Stated complaint: genital infection Time Seen by Provider: 08/21/23 22:13 Source: patient, family (patient's son), RN notes reviewed and old records reviewed Mode of arrival: ambulatory Limitations: no limitations History of Present Illness HPI narrative: 58-year-old male presents for evaluation of scrotal swelling. The patient is a very poor historian His son who is the healthcare proxy is helping to assist with history Is sounds the patient has chronic edema to his scrotum and his lower extremities. Over the last 10 days he has had increasing swelling to the scrotum He reports he [facility] with [facility] for left lower extremity chronic wounds. Patient states that he has a machine that is designed to ?push the fluid at a my legs that I used twice a day for 45 minutes each. ? He has not any water pill He believes he has ?the beginnings of heart failure. ? He has some mild discomfort to the area. Denies any difficulty with urination, burning with urination Denies fevers or chills Related Data Home Medications Medication Instructions Recorded Confirmed acetaminophen 650 mg tablet 650 mg PO Q4H PRN Pain 11/21/22 11/21/22 bupropion HCl 150 mg tablet,12 hr 150 mg PO BID 11/21/22 11/21/22 sustained-release (Wellbutrin SR) cyanocobalamin (vitamin B-12) 500 2,000 mcg PO DAILY 11/21/22 11/21/22 mcg tablet cyclobenzaprine 10 mg tablet 10 mg PO DAILY PRN Muscle Spasm 11/21/22 11/21/22 dicyclomine 20 mg tablet 20 mg PO BID 11/21/22 11/21/22 fluoxetine 60 mg tablet 60 mg PO DAILY 11/21/22 11/21/22 gabapentin 300 mg capsule 300 mg PO BID 11/21/22 11/21/22 insulin aspart (niacinamide) 1 - 4 sliding scale dose subcut 11/21/22 11/21/22 (U-100) 100 unit/mL subcutaneous TIDAC solution insulin glargine 100 unit/mL 45 unit subcut DAILY 11/21/22 11/21/22 subcutaneous cartridge loratadine 10 mg tablet 10 mg PO DAILY 11/21/22 11/21/22 losartan 50 mg tablet 50 mg PO DAILY 11/21/22 11/21/22 meloxicam 15 mg tablet 15 mg PO DAILY 11/21/22 11/21/22 metoprolol tartrate 50 mg tablet 50 mg PO BID 11/21/22 11/21/22 multivitamin with minerals 1 tab PO DAILY 11/21/22 11/21/22 omega-3 fatty acids 500 mg capsule 1,000 mg PO DAILY 11/21/22 11/21/22 omeprazole 40 mg capsule,delayed 40 mg PO DAILY 11/21/22 11/21/22 release oxybutynin chloride 15 mg 15 mg PO DAILY 11/21/22 11/21/22 tablet,extended release 24 hr oxycodone-acetaminophen 5 mg-325 2 tab PO BID PRN Pain 11/21/22 11/21/22 mg tablet psyllium 2 tsp PO BID 11/21/22 11/21/22 quetiapine 25 mg tablet 12.5 mg PO BEDTIME 11/21/22 11/21/22 quetiapine 25 mg tablet 25 mg PO QAM 11/21/22 11/21/22 rosuvastatin 40 mg tablet 40 mg PO DAILY 11/21/22 11/21/22 sildenafil 100 mg tablet 100 mg PO DAILY PRN Sexual Activity 11/21/22 11/21/22 tamsulosin 0.4 mg capsule 0.8 mg PO BEDTIME 11/21/22 11/21/22 terazosin 2 mg capsule 4 mg PO DAILY 11/21/22 11/21/22 Previous Rx's Medication Instructions Recorded amlodipine 2.5 mg tablet 2.5 mg PO DAILY #30 tabs 11/26/22 carvedilol 12.5 mg tablet 12.5 mg PO BID #60 tabs 11/26/22 cefpodoxime 200 mg tablet 200 mg PO Q12H #14 tabs 08/21/23 furosemide 40 mg tablet (Lasix) 40 mg PO DAILY #30 tabs 08/21/23 Allergies Allergy/AdvReac Type Severity Reaction Status Date / Time strawberry [STRAWBERRY] Allergy Severe ANAPHYLAXIS Verified 07/21/23 14:18 aspirin [ASPIRIN] Allergy Unknown SIBLINGS Verified 07/21/23 14:18 WITH BLOOD DISORDER atorvastatin [ATORVASTATIN] Allergy Unknown RASH, Verified 07/21/23 14:18 SWELLING fenofibrate [FENOFIBRATE] Allergy Unknown RASH, Verified 07/21/23 14:18 SWELLING lisinopril [LISINOPRIL] Allergy Unknown RASH,SWELLI Verified 07/21/23 14:18 NG niacin Allergy Unknown RASH,SWELLI Verified 07/21/23 14:18 [From NIASPAN NG EXTENDED-RELEASE] poison bruno extract Allergy Rash Verified 07/21/23 14:18 poison oak extract Allergy Rash Verified 07/21/23 14:18 poison sumac extract Allergy Rash Verified 07/21/23 14:18 [place] (Diagnostic) Allergy Unknown Unknown Uncoded 07/21/23 14:18 Review of Systems Constitutional: Constitutional: Denies chills and Denies fever(s) Eyes: Eyes: Denies blurry vision Cardiovascular: Cardiovascular: Denies chest pain, Reports leg edema and Denies dyspnea Respiratory: Respiratory: Denies cough and Denies dyspnea Gastrointestinal: Gastrointestinal: Denies abdominal pain, Denies nausea and Denies vomiting Genitourinary: Genitourinary: Reports other (Reports scrotal swelling) Musculoskeletal: Musculoskeletal: Reports back pain Integumentary/Breasts: Skin/Breast: Denies erythema and Denies rash PMFSH Past Medical History Medical History Constipation Morbidly obese Prostate cancer Diabetes [place] War syndrome PTSD (post-traumatic stress disorder) Surgical History History of prostate surgery History of back surgery Social History Household Members: Family Housing: House Unable to assess alcohol history related to: Unknown Alcohol intake: never Patient Tobacco Use Status: Former Tobacco user Advance Directives: No Advance Directives Information Provided: No service: Yes Current occupational status: employed Physical Exam ED Vital Signs: Vital Signs - 24 hr 08/21/23 20:11 08/21/23 23:23 Temperature 97.1 F Pulse Rate 75 76 Respiratory Rate 16 20 Blood Pressure 126/50 L 157/59 H Pulse Oximetry 96 96 Oxygen Delivery Method Room Air Room Air BMI result Body Mass Index 60.0 Const General: healthy appearing, comfortable, no acute distress, alert and awake Nutritional Appearance: well nourished Orientation/consciousness: patient oriented x3 HENMT Head: Yes normocephalic and Yes atraumatic Eyes Eyelids: Yes eyelids normal Conjunctivae: conjunctivae normal Sclerae: sclerae normal Corneas: corneas normal Pupils: Equal, round and reactive pupils present EOM: EOMs intact bilaterally Neck Neck: Yes full ROM Resp Effort & Inspection: normal respiratory effort, able to speak in complete sentences and not labored Cardio Rate: regular rate Rhythm: regular rhythm GI Inspection: No distended Palpation (GI): Soft to palpation, not firm, nontender, no guarding and not rigid Auscultation: normoactive bowel sounds Other: Patient's scrotum is approximately the size of a grapefruit. There is no significant erythema or open wounds to the scrotum. No significant tenderness. Skin General skin exam: elasticity normal Neuro General: patient oriented x3 Cranial nerves: Yes Equal, round and reactive pupils present and Yes Bilaterally intact EOM present Cognition (Neuro): normal cognition Extrem Other: Two to 3+ bilateral lower extremity pitting edema Course Course Course Narrative: This is a rapid medical exam: Additional HPI, ROS, PE not included below will be deferred to primary provider. Patient is a 58-year-old male with history of DM, prostate CA, PTSD, [place] War syndrome presenting to the ED with complaint of scrotal pain and swelling for the past 10 days. [employer] Architect states patient reported that symptoms had improved after first 3 days, but today complained of pain again and asked to be evaluated. Patient denies fevers. Denies any discharge or drainage. Area not visualized in triage due to privacy concerns. Plan: UA, CT NG urine, basic labs Medications Administered Discontinued Medications Generic Name Dose Route Start Last Admin Trade Name Ericksonq PRN Reason Stop Dose Admin Furosemide 40 mg 08/21/23 22:56 08/21/23 23:16 Furosemide 40 Mg Tablet PO 08/21/23 22:57 40 mg ONCE ONE Administration Protocol Medical Decision Making Medical Decision Making MDM Narrative: 58-year-old male presents for evaluation of scrotal swelling. He has a history of diastolic heart failure. The patient is not on any diuretics at this time. He reports drinking 2.5 gal of fluids daily. His labs have no significant abnormalities to suggest the etiology of his symptoms. There is no obvious sign of infection. We are awaiting a UA. Patient was strongly advised to severely come back the amount of fluids he is drinking daily and he will be started on Lasix 40 mg daily. Differential Diagnosis Differential Diagnoses: The differential diagnosis associated with the presentation includes Anasarca CHF Lower extremity edema Renal failure Liver failure Lab Data MDM Lab Attestation statement: I reviewed the patient's lab results. No significant leukocytosis. The patient has a mild anemia. No significant electrolyte abnormalities, normal renal function, normal LFTs. 08/21/23 20:33 08/21/23 20:33 Labs: Lab Results 08/21/23 08/21/23 Range/Units 20:33 23:20 WBC 7.9 (4.8-10.8) X10*3/uL RBC 4.09 L (4.60-5.80) X10*6/uL Hgb 11.4 L (14.0-18.0) g/dl Hct 34.9 L (42.0-52.0) % MCV 85.3 (80.0-98.0) fL MCH 27.9 (27.0-33.0) pg MCHC 32.7 (31.0-36.0) g/dl RDW 14.3 (11.0-16.0) % Plt Count 247 (160-400) X10*3/uL MPV 9.3 L (9.4-12.4) fL Immature Gran % (Auto) 0.3 (0.0-0.4) % Neut % (Auto) 75.2 H (45-73) % Lymph % (Auto) 12.7 L (20-40) % [place] % (Auto) 8.4 (2-11) % Eos % (Auto) 2.9 (0-4) % Baso % (Auto) 0.5 (0-2) % Lymph # (Auto) 1.0 L (1.2-4.9) X10*3/uL [place] # (Auto) 0.7 (0.1-1.2) X10*3/uL Eos # (Auto) 0.2 (0.0-0.4) X10*3/uL Baso # (Auto) 0.0 (0.0-0.2) X10*3/uL Abs Immat Gran (auto) 0.02 (0.00-0.03) X10*3/uL Absolute Neuts (auto) 6.0 (2.0-8.3) x10*3/uL Absolute Nucleated RBC 0.000 (0.0-0.012) X10*3/uL Nucleated RBC % (auto) 0.0 (0.0-0.2) /100WBC Sodium 139 (135-145) mmol/L Potassium 4.1 (3.3-5.1) mmol/L Chloride 105 (96-108) mmol/L Carbon Dioxide 24 (22-29) mmol/L Anion Gap 14 (12-20) BUN 13 (9-16) mg/dL Creatinine 0.94 (0.5-1.4) mg/dL Estim Creat Clear Calc 175.6 Estimated GFR > 60 Random Glucose 143 H (60-115) mg/dL Calcium 9.0 (8.4-10.2) mg/dL Total Bilirubin 0.1 (0.0-1.0) mg/dL AST 14 (5-37) U/L ALT 17 (0-40) U/L Alkaline Phosphatase 85 (39-117) U/L Total Protein 6.9 (6.5-8.0) g/dL Albumin 3.9 (3.5-5.0) g/dL Urine Color Dark Yellow Urine Appearance Cloudy Urine pH 5.5 (5.0-9.0) Ur Specific [place] >= 1.030 H (1.005-1.025) Urine Protein 100 (2+) H (Neg-Trace) mg/dL Urine Glucose (UA) Negative (Negative) mg/dL Urine Ketones Trace (Negative) mg/dL Urine Blood Moderate (2+) H (Negative) Urine Nitrite Negative (Negative) Ur Leukocyte Esterase Moderate (2+) H (Negative) Urine RBC 6-10 H (0-2) /HPF Urine WBC 21-50 H (0-5) /HPF Ur Squamous Epith Cells 0-2 (0-2) /HPF Urine Bacteria 2+ (None Seen) Hyaline Casts >20 (0-2) /LPF Tests considered The following testing was considered but not selected: Imaging of the scrotum to include ultrasound and/or CT scan of the pelvis. These were deferred as I have low suspicion for torsion an infectious process so less likely to be abscess or [place] gangrene. Discharge Plan Discharge Clinical Impression: Anasarca, Urinary tract infection Patient Disposition: Home, Self-Care Instructions: Edema (ED) Additional Instructions: If you are drinking 2.5 gal of fluids per day, you should not drink more than 1 gal Take Lasix 40 mg daily Follow-up with your primary doctor Return for new or worsening symptoms take the antibiotic as directed for UTI Prescriptions: New furosemide [Lasix] 40 mg tablet 40 mg PO DAILY Qty: 30 0RF cefpodoxime 200 mg tablet 200 mg PO Q12H Qty: 14 0RF Rx Instructions: must administer with a meal/food No Action quetiapine 25 mg Tablet 25 mg PO QAM quetiapine 25 mg Tablet 12.5 mg PO BEDTIME bupropion HCl [Wellbutrin SR] 150 mg Tablet Sustained-Release 12 Hr 150 mg PO BID acetaminophen 650 mg Tablet 650 mg PO Q4H PRN (Reason: Pain) oxycodone-acetaminophen 5-325 mg Tablet 2 tab PO BID PRN (Reason: Pain) dicyclomine 20 mg Tablet 20 mg PO BID metoprolol tartrate 50 mg Tablet 50 mg PO BID gabapentin 300 mg Capsule 300 mg PO BID loratadine 10 mg Tablet 10 mg PO DAILY fluoxetine 60 mg Tablet 60 mg PO DAILY losartan 50 mg Tablet 50 mg PO DAILY omeprazole 40 mg Capsule,Delayed Release(Dr/Ec) 40 mg PO DAILY sildenafil 100 mg Tablet 100 mg PO DAILY PRN (Reason: Sexual Activity) Rx Instructions: administer 30 minutes to 4 hours before activity psyllium Powder 2 tsp PO BID Rx Instructions: mix into at least 4 oz water or juice before administering terazosin 2 mg Capsule 4 mg PO DAILY multivitamin with minerals Tablet 1 tab PO DAILY rosuvastatin 40 mg Tablet 40 mg PO DAILY insulin glargine 100 unit/mL Cartridge 45 unit SUBCUT DAILY omega-3 fatty acids 500 mg Capsule 1,000 mg PO DAILY insulin aspart (niacinamide) 100 unit/mL Solution 1 - 4 sliding scale dose SUBCUT TIDAC cyclobenzaprine 10 mg Tablet 10 mg PO DAILY PRN (Reason: Muscle Spasm) oxybutynin chloride 15 mg Tablet Extended Release 24hr 15 mg PO DAILY meloxicam 15 mg Tablet 15 mg PO DAILY cyanocobalamin (vitamin B-12) 500 mcg Tablet 2,000 mcg PO DAILY tamsulosin 0.4 mg Capsule 0.8 mg PO BEDTIME amlodipine 2.5 mg Tablet 2.5 mg PO DAILY Qty: 30 0RF Protocol: Hold for SBP< HOLD for SBP < : 90 carvedilol 12.5 mg Tablet 12.5 mg PO BID Qty: 60 0RF Protocol: Hold for SBP/HR < HOLD for SBP < : 90 HOLD for HR < : 60
[2023-08-21 20:39] LABS: MANUAL DIFF FLAG NO
[2023-08-21 20:45] LABS: Basophils Percent Auto 0.5 % (0-2); Eosinophils Absolute Auto 0.2 X10*3/uL (0.0-0.4); Eosinophils Percent Auto 2.9 % (0-4); Hematocrit 34.9 % (42.0-52.0); Hemoglobin 11.4 g/dl (14.0-18.0); Imm Gran Abs Auto 0.02 X10*3/uL (0.00-0.03); Imm Gran Pct Auto 0.3 % (0.0-0.4); Lymphocytes Percent Auto 12.7 % (20-40); Mean Corpuscular HGB Conc 32.7 g/dl (31.0-36.0); Mean Corpuscular Hemoglobin 27.9 pg (27.0-33.0); Mean Corpuscular Volume 85.3 fL (80.0-98.0); Mean Platelet Volume 9.3 fL (9.4-12.4); Monocytes Absolute Auto 0.7 X10*3/uL (0.1-1.2); Monocytes Percent Auto 8.4 % (2-11); Neutrophils Percent Auto 75.2 % (45-73); Platelet Count 247 X10*3/uL (160-400); Red Blood Count 4.09 X10*6/uL (4.60-5.80); Red Cell Distribution Width 14.3 % (11.0-16.0); White Blood Count 7.9 X10*3/uL (4.8-10.8)
[2023-08-21 20:55] LABS: Alanine Aminotransferase 17 U/L (0-40); Albumin Level 3.9 g/dL (3.5-5.0); Alkaline Phosphatase 85 U/L (39-117); Anion Gap 14 (12-20); Aspartate Amino Transferase 14 U/L (5-37); Bilirubin Total 0.1 mg/dL (0.0-1.0); Blood Urea Nitrogen 13 mg/dL (9-16); Carbon Dioxide 24 mmol/L (22-29); Chloride 105 mmol/L (96-108); Creatinine Clr Calc Pharmacy 175.6; Estimated Glomerular Filt Rate > 60; Glucose Random 143 mg/dL (60-115); Potassium 4.1 mmol/L (3.3-5.1); Sodium 139 mmol/L (135-145); Total Protein 6.9 g/dL (6.5-8.0)
[2023-08-21] MEDS: Furosemide 40 MG TABLET PO (23:16)
--- NOTE | 2023-08-21 23:20 | PC.NURSE ---
lasix given per nov. +2 pitting edema noted bilat lower extremities. +pulses. pt educated to take lasix at home as well as decrease fluid intake to 1gal per Ayaz GAVIN recommendations.
[2023-08-21 23:23] VITALS: BP 157/59; PULSE 76; RESP 20; O2SAT 96
--- NOTE | 2023-08-21 23:24 | PC.NURSE ---
pt medicated per nov. ua sent to lab pt provided very small amount of urine for sampling.
[2023-08-21 23:27] LABS: Appearance Urine Cloudy; Color Urine Dark Yellow; Glucose Urine UA Negative (Negative); Leukocyte Esterase Urine Moderate (2+) (Negative); Nitrite Urine Negative (Negative); PH 5.5 (5.0-9.0); Specific Gravity - Urine >= 1.030 (1.005-1.025); UMIC TRIGGER UACC YES; Urine Blood Moderate (2+) (Negative); Urine Ketones Trace mg/dL (Negative); Urine Protein 100 (2+) mg/dL (Neg-Trace)
[2023-08-21 23:39] LABS: Bacteria Urine 2+ (None Seen); Hyaline Casts Urine >20 /LPF (0-2); Squamous Epithelial Cell Urine 0-2 /HPF (0-2); UACC Culture Trigger YES; WBC Urine 21-50 /HPF (0-5)
[2023-08-21 23:50] VITALS: BP 151/70; PULSE 76; RESP 20; TEMP 36.6; O2SAT 96
--- NOTE | 2023-08-21 23:54 | PC.NURSE ---
pt reported feeling cold/chills after taking lasix. vitals as documented. Ayaz GAVIN at bedside.
[2023-08-22] MEDS: cefuroxime axetiL 500 MG TABLET PO (00:03)
--- NOTE | 2023-08-22 00:05 | PC.NURSE ---
unable to scan barcode; verified pt then verified med to nov.
== END 2023-08-22 00:05 | disposition home or self-care (01) ==
PROVIDERS: Registered Nurse Emergency; Emergency Provider Emergency Medicine Emergency Medical Services; PCP Nurse Practitioner Family
DX: R60.1 Generalized edema (principal); N39.0 Urinary tract infection, site not specified; N50.812 Left testicular pain; N50.811 Right testicular pain; N50.89 Other specified disorders of the male genital organs; Z79.899 Other long term (current) drug therapy; Z87.891 Personal history of nicotine dependence
CPT/HCPCS: 36415; 80053; 81001; 85025; 87040; 87086; 99283

== ENCOUNTER 2025-04-21 08:24 | Emergency (ER) | payer OTHER, SELFPAY ==
--- NOTE | ~2025-04-21 | CT_ITS ---
EXAMINATION: CT HEAD AND FACIAL BONES WITHOUT CONTRAST CLINICAL INFORMATION: Headache, with nasal/sinus/facial tenderness COMPARISON: None TECHNIQUE: Contiguous axial imaging was performed from the skull base to vertex, as well as the maxillofacial bones/mandible without intravenous administration of contrast. Multiplanar reformatted imaging was constructed from the axial data set. This CT examination was performed using dose optimization techniques as appropriate, variously including the following: *Automated exposure control *Adjustment of mA and/or kV according to patient size (this includes techniques or standardized protocols for targeted exams where dose is matched to indication/reason for exam; i.e. extremities or head) *Use of iterative reconstruction technique CT HEAD: There is no evidence of intracranial hemorrhage or extra-axial fluid collection. There is no mass effect, or edema. No CT evidence of acute territorial infarct. Ventricles, sulci, and cisterns are normal in size and configuration for patient age. No hydrocephalus. No midline shift. Negative hyperdense MCA sign. Negative insular ribbon sign. No significant white matter abnormalities. Normal pituitary. Globes and orbital contents image normally. No extracranial soft tissue abnormalities. The calvarium and skull base are intact without fracture. CT MAXILLOFACIAL BONES: The mandible is intact without fracture. The TM joints are normally oriented. The nasal bones, nasal process, maxilla, orbits, zygomatic arches, pterygoid plates, and sphenoid bone are intact without fracture. No significant nasal septal deviation. 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 Mild mucosal thickening in the dependent maxillary sinuses, throughout the ethmoid sinuses, and involving the frontal recesses. No significant air-fluid level or significant sinus opacification. The maxillary ostia, frontal recesses, and sphenoethmoidal recesses remain patent. No paranasal sinus fractures. The mastoids and tympanic cavities are normally aerated. No acute dental abnormality. Imaged maxillofacial/neck soft tissues demonstrate a 2.6 cm lipoma in the left inferior superficial parotid gland. Soft tissues otherwise demonstrate no abnormalities. No inflammation, adenopathy, or infiltrative changes identified. No prevertebral abnormality. Imaged cervical spine demonstrates mild degenerative changes most notable at the atlantoaxial joint. CT/CT facial bones wo IV con IMPRESSION: 1. No intracranial hemorrhage or mass effect. No CT evidence of acute territorial infarct. No fractures evident. 2. Minor paranasal sinus disease without significant opacification or air-fluid level. 3. No acute findings in the maxillofacial soft tissues. Electronically signed by: Topher Mccain MD 04/21/2025 11:12 AM EDT
[2025-04-21 08:40] VITALS: BP 171/69; PULSE 74; RESP 18; TEMP 36.6; O2SAT 93; BMI 50.0
--- OUTSIDE RECORDS SUMMARY | 2025-04-21 09:32 | XMS_ITS | Encounter Summary ---
Author Organization [facility] Address [address] [place] [address] Phone Care Team Providers Care Head Rose Grower Name Role Phone Holden Koo NP Primary Care Provide r Holden Shin Primary Care Provid er Reason for Referral * MRI/CAT Scan - Closed Specialty Diagnoses / Procedures Referred By Contac t Referred To Contact Radiology Diagnoses Low back pain, unspecified back pain laterality, unspecified chronicity, unspecified whether sciatica present Procedures MRI Lumbar Spine CHG MRI, LUMBAR SPINE CHG MRI, LUMBAR SPINE CONTRAST CHG MRI, LUMBAR SPINE COMBO Fatou Heard, [employer] [address] [place] [address] Phone: tel: fax: Referral ID Status Reason Start Date Expiration Date Visits Re quested Visits Authorized [id number] Closed 07/11/2022 09/26/2022 1 1 Encounter Details Date Type Department Care Team (Latest Contact Info) Description 07/11/2022 Transcribe Orders Virtual Department [address] [place] [address] Fatou Heard, [employer] [address] [place] [address] Low back pain, unspecified back pain laterality, unspecified chronicity, unspecified whether sciatica present (Primary Dx) Social History Tobacco Use Types Packs/Day Years Used Date Smoking Tobacco: Some Days Smokeless Tobacco: Never Alcohol Use Standard Drinks/Week Comments Not Currently 0 (1 standard drink = 0.6 oz pur e alcohol) Sex and Gender Information Value Date Recorded Sex Assigned at Male 11/14/2021 6:37 PM EST Legal Sex Male 9:39 PM EDT Gender Identity Male 11/14/2021 6:37 PM EST Sexual Orientation Straight 11/14/2021 6: 37 PM EST documented as of this encounter Plan of Treatment Scheduled Orders Name Type Priority Associated Diagnoses Orde r Schedule MRI Lumbar Spine Imaging Routine Low back pain, unspecified back pain laterality, unspecified chronicity, unspecified whether sciatica present Expected: 07/11/2022, Expires: 07/11/2023 documented as of this encounter Visit Diagnoses Diagnosis Low back pain, unspecified back pain laterality, unspecified chronicity, unspecified whether sciatica present- Primary documented in this encounter Care Teams Head Rose Grower Relationship Specialty Start Date End Date Holden Koo NP [address] [place] [address] PCP - General Family Medicine 09/11/21 02/03/23 Holden Shin PA [address] [place] [address] PCP - General 02/04/23 documented as of this encounter Additional Source Comments The information contained in this document represents components of the legal health record. It is not the complete legal health record.[facility]
--- OUTSIDE RECORDS SUMMARY | 2025-04-21 09:32 | XMS_ITS | Encounter Summary ---
Author Organization [facility] Address [address] [place] [address] Phone Care Team Providers Care Product Safety Technical Assistant Name Role Phone Unavailable Primary Care Provider Unavailabl e Encounter Details Date Type Department Care Team (Late st Contact Info) Description 10/22/2022 Documentation Only [facility], [address] [place] [address] Mando Sawyer MD [address] [place] [address] Social History Tobacco Use Types Packs/Day Years Used Date Smoking Tobacco: Never Assessed Sex and Gender Information Value Date Recorded Sex Assigned at Not on file Legal Sex Male 1:57 PM EST Gender Identity Not on file Sexual Orientation Not on file documented as of this encounter Plan of Treatment Not on file documented as of this encounter Visit Diagnoses Not on filedocumented in this encounter
--- OUTSIDE RECORDS SUMMARY | 2025-04-21 09:33 | XMS_ITS ---
Author Name [facility] Organization Unknown Problems Problem Status Onset Date Problem Type Date of Resoluti on Source Acute right-sided low back pain with sciatica, sciatica laterality unspecified active EncounterDiagnosisAct HHCCT Encounters Encounter Type Encounter Reason Primary Diagnosis Location Date Ambulatory Lumbago with sciatica, unspecified side [facility]' 08/08/2022 Care Team Organization Name Specialty Phone Email Start Date End Da te [facility]NA[facility]' NO PCP Primary Care 08/08/2022 08/08/2022 [facility]' PCP,No Primary Care 08/08/2022
--- OUTSIDE RECORDS SUMMARY | 2025-04-21 09:33 | XMS_ITS | Clinical Summary ---
Author Organization [facility] Address [address] [place] [address] Care Team Providers Care [employer] Name Role Phone Pcp, No Primary Care Provider Unavailabl e Social History Tobacco Use Types Packs/Day Years Used Date Smoking Tobacco: Never Assessed Sex and Gender Information Value Date Recorded Sex Assigned at Not on file Legal Sex Male 9:24 AM EST Gender Identity Not on file Sexual Orientation Not on file Plan of Treatment Health Maintenance Due Date Last Done Comments Hepatitis C Virus Screening 1967 HIV Screening 1980 DTaP/Tdap/Td Vaccines (1 - Tdap) 1986 Hepatitis B Vaccines (1 of 3 - 19+ 3-dose series) 10/1985 Colonoscopy 2012 Pneumococcal Vaccines 50+ (1 of 1 - PCV) 2017 Zoster (Shingles) Vaccine (1 of 2) 2017 COVID-19 Vaccine (1 - season) 2024 Influenza Vaccine 04/28/2025 Insurance [facility] Care Teams [employer] Relationship Specialty Start Date End Date Pcp, No PCP - General General Medicine 08/08/22
[2025-04-21 09:41] VITALS: BP 159/78; PULSE 74; RESP 18; O2SAT 95
--- NOTE | 2025-04-21 09:46 | ED.GENADULT ---
HPI - General Adult General Chief complaint: General Medical Stated complaint: ? Broken Nose No Injury Time Seen by Provider: 04/21/25 09:15 Source: patient Mode of arrival: ambulatory Limitations: no limitations History of Present Illness ED Provider: Murray Samaniego HPI narrative: 59 yold male with pmh of Diabetes presents to the ED for facial/nasal pain with headache. patient denies any nausea, vomiting, dizziness, slurred speech, fever, chills, chest pain, shortness of breath, loss of visions, facial droop, paralysis of extremities, or weakness. Patient admits sneezing. patient sleeps in a bed with rales and rolls over alot and thinks maybe he hit his face while turning unto the rails. patient denies falling unto the ground. Patient from sent from urgent care for CT Related Data Home Medications ?Medication ?Instructions ?Recorded ?Confirmed acetaminophen 650 mg tablet 650 mg PO Q4H PRN Pain 11/21/22 11/21/22 bupropion HCl 150 mg tablet,12 hr 150 mg PO BID 11/21/22 11/21/22 sustained-release (Wellbutrin SR) cyanocobalamin (vitamin B-12) 500 2,000 mcg PO DAILY 11/21/22 11/21/22 mcg tablet cyclobenzaprine 10 mg tablet 10 mg PO DAILY PRN Muscle Spasm 11/21/22 11/21/22 dicyclomine 20 mg tablet 20 mg PO BID 11/21/22 11/21/22 fluoxetine 60 mg tablet 60 mg PO DAILY 11/21/22 11/21/22 gabapentin 300 mg capsule 300 mg PO BID 11/21/22 11/21/22 insulin aspart (niacinamide) 1 - 4 sliding scale dose subcut 11/21/22 11/21/22 (U-100) 100 unit/mL subcutaneous TIDAC solution insulin glargine 100 unit/mL 45 unit subcut DAILY 11/21/22 11/21/22 subcutaneous cartridge loratadine 10 mg tablet 10 mg PO DAILY 11/21/22 11/21/22 losartan 50 mg tablet 50 mg PO DAILY 11/21/22 11/21/22 meloxicam 15 mg tablet 15 mg PO DAILY 11/21/22 11/21/22 metoprolol tartrate 50 mg tablet 50 mg PO BID 11/21/22 11/21/22 multivitamin with minerals 1 tab PO DAILY 11/21/22 11/21/22 omega-3 fatty acids 500 mg capsule 1,000 mg PO DAILY 11/21/22 11/21/22 omeprazole 40 mg capsule,delayed 40 mg PO DAILY 11/21/22 11/21/22 release oxybutynin chloride 15 mg 15 mg PO DAILY 11/21/22 11/21/22 tablet,extended release 24 hr oxycodone-acetaminophen 5 mg-325 2 tab PO BID PRN Pain 11/21/22 11/21/22 mg tablet psyllium 2 tsp PO BID 11/21/22 11/21/22 quetiapine 25 mg tablet 12.5 mg PO BEDTIME 11/21/22 11/21/22 quetiapine 25 mg tablet 25 mg PO QAM 11/21/22 11/21/22 rosuvastatin 40 mg tablet 40 mg PO DAILY 11/21/22 11/21/22 sildenafil 100 mg tablet 100 mg PO DAILY PRN Sexual Activity 11/21/22 11/21/22 tamsulosin 0.4 mg capsule 0.8 mg PO BEDTIME 11/21/22 11/21/22 terazosin 2 mg capsule 4 mg PO DAILY 11/21/22 11/21/22 Previous Rx's ?Medication ?Instructions ?Recorded amlodipine 2.5 mg tablet 2.5 mg PO DAILY #30 tabs 11/26/22 carvedilol 12.5 mg tablet 12.5 mg PO BID #60 tabs 11/26/22 cefuroxime axetil 250 mg tablet 250 mg PO Q12H #14 tabs 08/21/23 furosemide 40 mg tablet (Lasix) 40 mg PO DAILY #30 tabs 08/21/23 amoxicillin 875 mg-potassium 1 tab PO Q12H 10 days #20 tabs 04/21/25 clavulanate 125 mg tablet triamcinolone acetonide 55 mcg 1 spray intranasal DAILY 7 days 04/21/25 nasal spray aerosol (Nasacort) #16.9 mL Allergies Allergy/AdvReac Type Severity Reaction Status Date / Time strawberry (STRAWBERRY) Allergy Severe ANAPHYLAXIS Verified 04/21/25 08:43 aspirin (ASPIRIN) Allergy Unknown SIBLINGS Verified 04/21/25 08:43 WITH BLOOD DISORDER atorvastatin (ATORVASTATIN) Allergy Unknown RASH, Verified 04/21/25 08:43 SWELLING fenofibrate (FENOFIBRATE) Allergy Unknown RASH, Verified 04/21/25 08:43 SWELLING lisinopril (LISINOPRIL) Allergy Unknown RASH,SWELLI Verified 04/21/25 08:43 NG niacin (From NIASPAN Allergy Unknown RASH,SWELLI Verified 04/21/25 08:43 EXTENDED-RELEASE) NG poison bruno extract Allergy Rash Verified 04/21/25 08:43 poison oak extract Allergy Rash Verified 04/21/25 08:43 poison sumac extract Allergy Rash Verified 04/21/25 08:43 [place] (Diagnostic) Allergy Unknown Unknown Uncoded 04/21/25 08:43 Review of Systems Review of Systems: nasal/facial pain Yes all other systems are reviewed and are negative [facility] Past Medical History Medical History Constipation Morbidly obese Prostate cancer Diabetes [place] War syndrome PTSD (post-traumatic stress disorder) Surgical History History of prostate surgery History of back surgery Social History Social History Household Members: Family Housing: House Unable to assess alcohol history related to: Unknown Alcohol intake: never Patient Tobacco Use Status: Former Tobacco user Smoked in Last 30 Days: No Use of substances other than those prescribed or required for medical reasons: No Advance Directives: Yes Advance Directives Information Provided: Yes Advance Directives on File: No Do you have a plan to hurt others: No Plan service: Yes Current occupational status: employed Physical Exam ED Vital Signs: Vital Signs - 24 hr 04/21/25 08:40 04/21/25 09:41 Temperature 97.8 F Pulse Rate 74 74 Respiratory Rate 18 18 Blood Pressure 171/69 H 159/78 H Pulse Oximetry 93 95 Oxygen Delivery Method Room Air Room Air BMI result Body Mass Index 50.0 Const General: cooperative, healthy appearing, comfortable, no acute distress, well developed, alert, awake and Physically active Orientation/consciousness: patient oriented x3 HENMT Head: Yes normal to inspection, Yes No palpable skull fracture present, Yes normocephalic and Yes atraumatic Ears: hearing grossly normal bilaterally, external ears normal, TM's normal bilaterally, TM normal on the right, TM normal on the left, EAC's normal, mastoids normal and no periauricular adenopathy General nose exam: Normal external nose present, Normal nares present and No nasal polyps present Nose image:  1. tenderness on palpation. negative for ecchymossis, abrasionss, nose bleed, or redness. Face and sinus: Yes sinus tenderness (maxillary sinus tenderness) Eyes General: appearance normal, both eyes and all related structures Neck Neck: Yes normal visual inspection, Yes full ROM, Yes no lymphadenopathy, Yes no meningeal signs, Yes trachea midline, Yes supple, No anterior neck swelling and No tender Chest Chest palpation & inspection: normal inspection of the chest and normal palpation of entire chest wall Resp Effort & Inspection: normal respiratory effort and able to speak in complete sentences Auscultation: clear to auscultation bilaterally Cardio Jugular venous distension: no JVD Heart sounds: S1 normal heart sound present and S2 normal heart sound present GI Inspection: Yes normal to inspection Palpation (GI): Soft to palpation, not firm, nontender, no guarding and not rigid General: Yes no CVA tenderness Back/Spine/Pelvis Back: no CVA tenderness and No back tenderness Skin General skin exam: no rashes or lesions noted, elasticity normal and turgor normal Neuro General: patient oriented x3, gait normal, tone normal, moves all extremities, Normal light touch and pain sensation, no meningeal signs, no focal motor deficits, CN's II-XI intact bilaterally and normal sensation to monofilament Extrem General: Yes normal to inspection, Yes full ROM and Yes capillary refill normal Psych Appearance: grossly normal, well kempt and not disheveled Medications Administered Discontinued Medications Generic Name Dose Route Start Last Admin Trade Name Veronique PRN Reason Stop Dose Admin Acetaminophen 650 mg 04/21/25 10:20 04/21/25 10:40 Acetaminophen 325 Mg Tablet PO 04/21/25 10:21 650 mg ONCE ONE Administration Medical Decision Making Medical Decision Making MDM Narrative: 9-year-old male presents to ED for naso maxillary sinus pain. Patient denies any fever chills nausea vomiting dizziness slurred speech facial droop loss of vision or paralysis of extremities. NIH score is 0. Sent from urgent care for CT scan. 11:22pm: Patient is CT scan shows thickening of the maxillary paraspinal ethmoid sinuses without passive vacation. Patient will be treated as sinusitis. Not suspecting brain bleed, nosebleed, PE, [place], meningitis, carotid dissection, encephalitis, posterior nosebleed, or any other life-threatening etiology. Patient was discharged with nasal steroids and antibiotics. Differential Diagnosis Differential Diagnoses: The differential diagnosis associated with the presentation includes (sinusitits, nasal fracture, migraine) Admission/Observation Consideration of admission/observation: Escalation of care including admission/observation considered Lab Data Labs: Lab Results 04/21/25 Range/Units 10:20 POC Glucose 105 (60-115) mg/dL Independent Interpretation I performed an independent interpretation of an: CT Scan Radiology Impression Discussion of test interpretation with radiology: I have reviewed the radiologist's reading. Independent Historian Clinical information obtained from an independent historian. History obtained from or confirmed by: Other (patinet) Prescription Management I considered prescription management with: Pain Medication and Antibiotic Discharge Plan Discharge Clinical Impression: Sinusitis Patient Disposition: Home, Self-Care Instructions: Sinusitis (ED) Additional Instructions: Recommend follow up with the primary care provider and ENT. You will be treating sinusitis. Imaging negative for any fracture or brain bleed. Return to the ED for worsening headache, eye pain, runny nose, nasal discharge, bleeding from the nose, dizziness, nausea, vomiting, fever, chills, or any other concerning symptoms. CT HEAD AND FACIAL BONES WITHOUT CONTRAST CLINICAL INFORMATION: Headache, with nasal/sinus/facial tenderness COMPARISON: None TECHNIQUE: Contiguous axial imaging was performed from the skull base to vertex, as well as the maxillofacial bones/mandible without intravenous administration of contrast. Multiplanar reformatted imaging was constructed from the axial data set. This CT examination was performed using dose optimization techniques as appropriate, variously including the following: *Automated exposure control *Adjustment of mA and/or kV according to patient size (this includes techniques or standardized protocols for targeted exams where dose is matched to indication/reason for exam; i.e. extremities or head) *Use of iterative reconstruction technique CT HEAD: There is no evidence of intracranial hemorrhage or extra-axial fluid collection. There is no mass effect, or edema. No CT evidence of acute territorial infarct. Ventricles, sulci, and cisterns are normal in size and configuration for patient age. No hydrocephalus. No midline shift. Negative hyperdense MCA sign. Negative insular ribbon sign. No significant white matter abnormalities. Normal pituitary. Globes and orbital contents image normally. No extracranial soft tissue abnormalities. The calvarium and skull base are intact without fracture. CT MAXILLOFACIAL BONES: The mandible is intact without fracture. The TM joints are normally oriented. The nasal bones, nasal process, maxilla, orbits, zygomatic arches, pterygoid plates, and sphenoid bone are intact without fracture. No significant nasal septal deviation. 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 Mild mucosal thickening in the dependent maxillary sinuses, throughout the ethmoid sinuses, and involving the frontal recesses. No significant air-fluid level or significant sinus opacification. The maxillary ostia, frontal recesses, and sphenoethmoidal recesses remain patent. No paranasal sinus fractures. The mastoids and tympanic cavities are normally aerated. No acute dental abnormality. Imaged maxillofacial/neck soft tissues demonstrate a 2.6 cm lipoma in the left inferior superficial parotid gland. Soft tissues otherwise demonstrate no abnormalities. No inflammation, adenopathy, or infiltrative changes identified. No prevertebral abnormality. Imaged cervical spine demonstrates mild degenerative changes most notable at the atlantoaxial joint. CT/CT facial bones wo IV con IMPRESSION: 1. No intracranial hemorrhage or mass effect. No CT evidence of acute territorial infarct. No fractures evident. 2. Minor paranasal sinus disease without significant opacification or air-fluid level. 3. No acute findings in the maxillofacial soft tissues. Electronically signed by: Topher Mccain MD 04/21/2025 11:12 AM EDT Prescriptions: New triamcinolone acetonide [Nasacort] 55 mcg aerosol,spray 1 spray intranasal DAILY 7 Days Qty: 16.9 0RF Rx Instructions: administer into each nostril amoxicillin-pot clavulanate 875-125 mg tablet 1 tab PO Q12H 10 Days Qty: 20 0RF No Action quetiapine 25 mg Tablet 25 mg PO QAM quetiapine 25 mg Tablet 12.5 mg PO BEDTIME bupropion HCl [Wellbutrin SR] 150 mg Tablet Sustained-Release 12 Hr 150 mg PO BID acetaminophen 650 mg Tablet 650 mg PO Q4H PRN (Reason: Pain) oxycodone-acetaminophen 5-325 mg Tablet 2 tab PO BID PRN (Reason: Pain) dicyclomine 20 mg Tablet 20 mg PO BID metoprolol tartrate 50 mg Tablet 50 mg PO BID gabapentin 300 mg Capsule 300 mg PO BID loratadine 10 mg Tablet 10 mg PO DAILY fluoxetine 60 mg Tablet 60 mg PO DAILY losartan 50 mg Tablet 50 mg PO DAILY omeprazole 40 mg Capsule,Delayed Release(Dr/Ec) 40 mg PO DAILY sildenafil 100 mg Tablet 100 mg PO DAILY PRN (Reason: Sexual Activity) Rx Instructions: administer 30 minutes to 4 hours before activity psyllium Powder 2 tsp PO BID Rx Instructions: mix into at least 4 oz water or juice before administering terazosin 2 mg Capsule 4 mg PO DAILY multivitamin with minerals Tablet 1 tab PO DAILY rosuvastatin 40 mg Tablet 40 mg PO DAILY insulin glargine 100 unit/mL Cartridge 45 unit SUBCUT DAILY omega-3 fatty acids 500 mg Capsule 1,000 mg PO DAILY insulin aspart (niacinamide) 100 unit/mL Solution 1 - 4 sliding scale dose SUBCUT TIDAC cyclobenzaprine 10 mg Tablet 10 mg PO DAILY PRN (Reason: Muscle Spasm) oxybutynin chloride 15 mg Tablet Extended Release 24hr 15 mg PO DAILY meloxicam 15 mg Tablet 15 mg PO DAILY cyanocobalamin (vitamin B-12) 500 mcg Tablet 2,000 mcg PO DAILY tamsulosin 0.4 mg Capsule 0.8 mg PO BEDTIME amlodipine 2.5 mg Tablet 2.5 mg PO DAILY Qty: 30 0RF Protocol: Hold for SBP< HOLD for SBP < : 90 carvedilol 12.5 mg Tablet 12.5 mg PO BID Qty: 60 0RF Protocol: Hold for SBP/HR < HOLD for SBP < : 90 HOLD for HR < : 60 furosemide [Lasix] 40 mg tablet 40 mg PO DAILY Qty: 30 0RF cefuroxime axetil 250 mg tablet 250 mg PO Q12H Qty: 14 0RF Referrals: Arpna Naqvi [Physician, Ear, Nose, Throat] - 3 days Referral Note: Sinusitis Interventions: ED Discharge Assessment Last Done: 04/21/25 11:39 Discharge Date/Time: 04/21/25 11:40 Print Language: Unable To Collect
[2025-04-21 10:27] LABS: Glucose, Whole Blood 105 mg/dL (60-115)
--- NOTE | 2025-04-21 11:08 | PC.NURSE ---
Pt very agitated, unable to obtain vitals. Pt is swinging at staff and is not redirectable. MD aware.
--- NOTE | 2025-04-21 11:37 | PC.NURSE ---
Pt very anxious, refused final set of vital signs at discharged, sts he has PTSD and has to get out of here.
[2025-04-21 11:39] VITALS: BP 159/78; PULSE 74; RESP 18; TEMP -17.7; TEMP 0; O2SAT 95
== END 2025-04-21 11:40 | disposition home or self-care (01) ==
PROVIDERS: Emergency Provider Emergency Medicine Emergency Medical Services; PCP Internal Medicine Endocrinology, Diabetes & Metabolism
DX: J32.9 Chronic sinusitis, unspecified (principal); E11.9 Type 2 diabetes mellitus without complications; R51.9 Headache, unspecified; Z79.899 Other long term (current) drug therapy; Z79.4 Long term (current) use of insulin
CPT/HCPCS: 70450; 70486; 82947; 99284

== ENCOUNTER → 2025-04-21 09:31 | Outpatient (BNV) | payer OTHER, SELFPAY | PROVIDERS: Emergency Provider Emergency Medicine Emergency Medical Services; PCP Internal Medicine Endocrinology, Diabetes & Metabolism; Visit Provider Radiology Diagnostic Radiology | DX: R51.9 Headache, unspecified (principal); J34.89 Other specified disorders of nose and nasal sinuses | CPT/HCPCS: 70450; 70486 ==

== ENCOUNTER 2025-08-02 12:40 | Emergency (ER) | payer OTHER, SELFPAY ==
--- NOTE | ~2025-08-02 | CT_ITS ---
EXAMINATION: CT SOFT TISSUE NECK WITH CONTRAST CLINICAL INFORMATION: Retropharyngeal abscess. COMPARISON: None available. TECHNIQUE: Following the intravenous administration of 60 mL of Omnipaque 350 intravenous contrast, helical imaging was performed in the axial plane with generation of coronal and sagittal reformatted images. This CT examination was performed using dose optimization techniques as appropriate, variously including the following: *Automated exposure control *Adjustment of mA and/or kV according to patient size (this includes techniques or standardized protocols for targeted exams where dose is matched to indication/reason for exam; i.e. extremities or head) *Use of iterative reconstruction technique. DLP: 1484 mGy-cm FINDINGS: There is an asymmetric heterogeneous enlarged enhancement centered in the right parotid gland with thickening of the right platysma and edema pattern through the fat planes seen in the right anterior lateral neck up to the thyroid cartilage levels. No gross sialolithiasis. Skull base, nasopharynx, retropharynx, hypopharynx and larynx demonstrated no gross masses or fluid collections. Prominent palatine tonsils resulting in narrowing of the hypopharynx and oropharynx. Secretions in the vallecula. Neighborhood Worker spaces, parapharyngeal spaces and carotid spaces demonstrated no gross masses. There is a 3.5 x 2 x 3.5 cm well-defined fat density lesion in the superficial left parotid gland. The submandibular glands demonstrated no sialolithiasis. There is asymmetric edema surrounding the right submandibular gland. No masses or fluid collections in the oral cavity or sublingual compartment. Prominent likely reactive cervical lymph nodes mostly on the right neck. The thyroid gland is not enlarged. No dominant nodules in the thyroid gland. The vessels are patent. Mixed plaques in the carotid bulbs and proximal segments of the ICA pronounced on the left. Calcified plaque in the inferior aspect of the aortic arch. Multilevel cervical spondylosis. Calcifications of the nuchal ligament at C3-4. Craniocervical junction demonstrates degenerative changes. There is normal position of the cerebellar tonsils. Poor dentition. No hematoma or fluid collections or masses in the intraconal or extraconal compartments of the orbits. Calcified plaques in the cavernous supracavernous segments both ICAs. Degenerative changes in the right shoulder. CT/CT soft tissue neck w IV con IMPRESSION: Acute inflammatory versus infectious processes centered in the right parotid gland with extended edema pattern from the platysma to the deep fat planes of the anterior right lateral soft tissues neck. Reactive lymphadenopathy. Hypertrophic palatine tonsils narrowing the oropharynx and hypopharynx airway. No retropharyngeal abscess. 3.5 cm lipoma, superficial left parotid gland.. Electronically signed by: Bruce Bender MD 08/02/2025 02:59 PM EST
[2025-08-02 12:53] VITALS: BP 177/72; PULSE 90; RESP 18; TEMP 37.5; O2SAT 97; BMI 47.5
--- NOTE | 2025-08-02 12:58 | ED.GENADULT ---
HPI - General Adult General Chief complaint: General Medical Stated complaint: trouble breathing, coming from dentist Time Seen by Provider: 08/02/25 13:23 Source: patient Mode of arrival: ambulatory Limitations: no limitations History of Present Illness ED Provider: Dr. Ordaz HPI narrative: 60-year-old male history of hypertension, diabetes, chronic back pain presented hospital today for evaluation of right neck swelling. Patient has had recent dental procedure performed. We went to the dentist. They stated that this swelling is not due to dental procedure. They should come to the ER for evaluation. Patient stated that this started as a small bump however they began to increase in size. It is make it difficult for him to open his mouth. Related Data Home Medications ?Medication ?Instructions ?Recorded ?Confirmed acetaminophen 650 mg tablet 650 mg PO Q4H PRN Pain 11/21/22 11/21/22 bupropion HCl 150 mg tablet,12 hr 150 mg PO BID 11/21/22 11/21/22 sustained-release (Wellbutrin SR) cyanocobalamin (vitamin B-12) 500 2,000 mcg PO DAILY 11/21/22 11/21/22 mcg tablet cyclobenzaprine 10 mg tablet 10 mg PO DAILY PRN Muscle Spasm 11/21/22 11/21/22 dicyclomine 20 mg tablet 20 mg PO BID 11/21/22 11/21/22 fluoxetine 60 mg tablet 60 mg PO DAILY 11/21/22 11/21/22 gabapentin 300 mg capsule 300 mg PO BID 11/21/22 11/21/22 insulin aspart (niacinamide) 1 - 4 sliding scale dose subcut 11/21/22 11/21/22 (U-100) 100 unit/mL subcutaneous TIDAC solution insulin glargine 100 unit/mL 45 unit subcut DAILY 11/21/22 11/21/22 subcutaneous cartridge loratadine 10 mg tablet 10 mg PO DAILY 11/21/22 11/21/22 losartan 50 mg tablet 50 mg PO DAILY 11/21/22 11/21/22 meloxicam 15 mg tablet 15 mg PO DAILY 11/21/22 11/21/22 metoprolol tartrate 50 mg tablet 50 mg PO BID 11/21/22 11/21/22 multivitamin with minerals 1 tab PO DAILY 11/21/22 11/21/22 omega-3 fatty acids 500 mg capsule 1,000 mg PO DAILY 11/21/22 11/21/22 omeprazole 40 mg capsule,delayed 40 mg PO DAILY 11/21/22 11/21/22 release oxybutynin chloride 15 mg 15 mg PO DAILY 11/21/22 11/21/22 tablet,extended release 24 hr oxycodone-acetaminophen 5 mg-325 2 tab PO BID PRN Pain 11/21/22 11/21/22 mg tablet psyllium 2 tsp PO BID 11/21/22 11/21/22 quetiapine 25 mg tablet 12.5 mg PO BEDTIME 11/21/22 11/21/22 quetiapine 25 mg tablet 25 mg PO QAM 11/21/22 11/21/22 rosuvastatin 40 mg tablet 40 mg PO DAILY 11/21/22 11/21/22 sildenafil 100 mg tablet 100 mg PO DAILY PRN Sexual Activity 11/21/22 11/21/22 tamsulosin 0.4 mg capsule 0.8 mg PO BEDTIME 11/21/22 11/21/22 terazosin 2 mg capsule 4 mg PO DAILY 11/21/22 11/21/22 Previous Rx's ?Medication ?Instructions ?Recorded amlodipine 2.5 mg tablet 2.5 mg PO DAILY #30 tabs 11/26/22 carvedilol 12.5 mg tablet 12.5 mg PO BID #60 tabs 11/26/22 cefuroxime axetil 250 mg tablet 250 mg PO Q12H #14 tabs 08/21/23 furosemide 40 mg tablet (Lasix) 40 mg PO DAILY #30 tabs 08/21/23 amoxicillin 875 mg-potassium 1 tab PO Q12H 10 days #20 tabs 04/21/25 clavulanate 125 mg tablet triamcinolone acetonide 55 mcg 1 spray intranasal DAILY 7 days 04/21/25 nasal spray aerosol (Nasacort) #16.9 mL amoxicillin 875 mg-potassium 1 tab PO Q12H 10 days #20 tabs 08/02/25 clavulanate 125 mg tablet dexamethasone 6 mg tablet 6 mg PO DAILY 7 days #7 tabs 08/02/25 Allergies Allergy/AdvReac Type Severity Reaction Status Date / Time strawberry (STRAWBERRY) Allergy Severe ANAPHYLAXIS Verified 08/02/25 12:57 aspirin (ASPIRIN) Allergy Unknown SIBLINGS Verified 08/02/25 12:57 WITH BLOOD DISORDER atorvastatin (ATORVASTATIN) Allergy Unknown RASH, Verified 08/02/25 12:57 SWELLING fenofibrate (FENOFIBRATE) Allergy Unknown RASH, Verified 08/02/25 12:57 SWELLING lisinopril (LISINOPRIL) Allergy Unknown RASH,SWELLI Verified 08/02/25 12:57 NG niacin (From NIASPAN Allergy Unknown RASH,SWELLI Verified 08/02/25 12:57 EXTENDED-RELEASE) NG poison bruno extract Allergy Rash Verified 08/02/25 12:57 poison oak extract Allergy Rash Verified 08/02/25 12:57 poison sumac extract Allergy Rash Verified 08/02/25 12:57 [place] (Diagnostic) Allergy Unknown Unknown Uncoded 08/02/25 12:57 Review of Systems Review of Systems: Pertinent review of systems as mentioned in HPI. All other system otherwise negative. [facility] Past Medical History [facility] Narrative: Hypertension, chronic back pain , diabetes Medical History Constipation Morbidly obese Prostate cancer Diabetes [place] syndrome PTSD (post-traumatic stress disorder) Surgical History History of prostate surgery History of back surgery Social History Social History Household Members: Family Housing: House Alcohol intake: never Patient Tobacco Use Status: Former Tobacco user Smoked in Last 30 Days: No Use of substances other than those prescribed or required for medical reasons: No Advance Directives: No Advance Directives Information Provided: No Do you have a plan to hurt others: No Plan service: Yes Current occupational status: employed Physical Exam ED Exam Exam: General: Pleasant, no distress, interacting appropriately Head: Normacephalic, atraumatic ENT: oral mucosa moist, neck supple, no tracheal deviation, appears to have muffled voice, uvula is midline, and some trismus due to pain on the right jaw. There was redness over the right mandible area we will have induration and pain to palpation, no signs of abscess inside the gum Cardiovascular: regular rate, regular rhythm, no murmurs, rubbing, gallops Respiratory: CTAB, no wheeze, rales, rhonchi Skin: Warm and dry Psychiatric: Appropriate mood and thoughts Vital Signs: Vital Signs - 24 hr 08/02/25 12:53 08/02/25 14:05 08/02/25 17:02 Temperature 99.5 F 99.0 F 98.5 F Pulse Rate 90 86 85 Respiratory Rate 18 22 H 20 Blood Pressure 177/72 H 142/117 H 171/86 H Pulse Oximetry 97 95 94 Oxygen Delivery Method Room Air Room Air Room Air 08/02/25 17:49 Temperature 98.5 F Pulse Rate 85 Respiratory Rate 20 Blood Pressure 171/86 H Pulse Oximetry 94 Oxygen Delivery Method Room Air BMI result Body Mass Index 47.5 Course Course Course Narrative: RME: 60 year male presents to ED for right facial neck swelling. Patient has had recent dental work this past Thursday and started having swelling on Thursday. Patient went to see his dentist today who immediately referred him to the ED. Positive for right facial neck swelling. Labs cat scan ordered. Medications Administered Discontinued Medications Generic Name Dose Route Start Last Admin Trade Name Freq PRN Reason Stop Dose Admin Dexamethasone Sodium Phosphate 10 mg 08/02/25 16:41 08/02/25 16:58 Dexamethasone Sod Phosphate 10 Mg/Ml Vial IVPUSH 08/02/25 16:42 10 mg ONCE ONE Administration Clindamycin Phosphate 600 mg in 50 mls @ 100 mls/hr 08/02/25 14:41 08/02/25 16:10 Cleocin IV 08/02/25 15:10 Infused ONCE ONE Infusion Ampicillin Sodium/Sulbactam 100 mls @ 200 mls/hr 08/02/25 16:41 08/02/25 16:59 Sodium 3 gm/ Sodium Chloride IV 08/02/25 17:10 200 mls/hr ONCE ONE Administration Iohexol 100 ml 08/02/25 14:32 08/02/25 14:32 Iohexol 350 Mg/Ml 100 Ml Infus..Btl IV 08/02/25 14:33 60 ml ONCE ONE Administration Medical Decision Making Medical Decision Making MDM Narrative: 55-year-old male presented hospital today for right jaw swelling. CT imaging was performed did show signs of inflammation of parotid gland possible infectious in nature. Given the erythema on exam and tenderness. I suspect this is an infection. IV clindamycin was given to the patient. Blood culture drawn as well. Lactic acid isn't elevated. Leukocytosis of 13.2. Discussed with Dr. Gold ENT at [facility]. Recommends IV antibiotic Unasyn and steroids. Eventual transition to oral Augmentin and clindamycin. After further discussion with the patient. Patient does not want to stay in the hospital. He stated that he is worried that being in the hospital environment with trigger his psychiatric issues. Patient we will rather go home with oral antibiotic at this time. Son stated that [facility] Return precautions provided the patient. We will plan to give patient a dose IV Unasyn here. And IV Decadron before discharge. We will plan to send the patient home with Augmentin and Decadron p.o. to take for his infection. Differential Diagnosis Differential Diagnoses: The differential diagnosis associated with the presentation includes Parotitis, abscess, cellulitis, dental abscess Lab Data MDM Lab Attestation statement: I reviewed the patient's lab results. 08/02/25 13:25 08/02/25 13:25 Labs: Lab Results 08/02/25 08/02/25 Range/Units 13:25 15:26 WBC 13.2 H (4.8-10.8) X10*3/uL RBC 4.24 L (4.60-5.80) X10*6/uL Hgb 12.4 L (14.0-18.0) g/dl Hct 36.0 L (42.0-52.0) % MCV 84.9 (80.0-98.0) fL MCH 29.2 (27.0-33.0) pg MCHC 34.4 (31.0-36.0) g/dl RDW 12.7 (11.0-16.0) % Plt Count 197 (160-400) X10*3/uL MPV 9.3 L (9.4-12.4) fL Immature Gran % (Auto) 0.4 (0.0-0.4) % Neut % (Auto) 83.8 H (45-73) % Lymph % (Auto) 6.6 L (20-40) % [place] % (Auto) 8.0 (2-11) % Eos % (Auto) 0.9 (0-4) % Baso % (Auto) 0.3 (0-2) % Lymph # (Auto) 0.9 L (1.2-4.9) X10*3/uL [place] # (Auto) 1.1 (0.1-1.2) X10*3/uL Eos # (Auto) 0.1 (0.0-0.4) X10*3/uL Baso # (Auto) 0.0 (0.0-0.2) X10*3/uL Abs Immat Gran (auto) 0.05 H (0.00-0.03) X10*3/uL Absolute Neuts (auto) 11.0 H (2.0-8.3) x10*3/uL Absolute Nucleated RBC 0.000 (0.0-0.012) X10*3/uL Nucleated RBC % (auto) 0.0 (0.0-0.2) /100WBC Sodium 139 (135-145) mmol/L Potassium 3.9 (3.3-5.1) mmol/L Chloride 105 (96-108) mmol/L Carbon Dioxide 25 (22-29) mmol/L Anion Gap 13 (12-20) BUN 11 (9-16) mg/dL Creatinine 0.65 (0.5-1.4) mg/dL Estim Creat Clear Calc 209.6 Estimated GFR > 60 Random Glucose 216 H (60-115) mg/dL Lactic Acid 0.9 (0.5-2.0) mmol/L Calcium 9.4 (8.4-10.2) mg/dL Total Bilirubin 0.2 (0.0-1.0) mg/dL AST 16 (5-37) U/L ALT 22 (0-40) U/L Alkaline Phosphatase 78 (39-117) U/L Total Protein 6.9 (6.5-8.0) g/dL Albumin 4.5 (3.5-5.0) g/dL Independent Interpretation I performed an independent interpretation of an: CT Scan Radiology Impression Discussion of test interpretation with radiology: I have reviewed the radiologist's reading. Prescription Management I considered prescription management with: Antibiotic Discharge Plan Discharge Clinical Impression: Infection of parotid gland Patient Disposition: Home, Self-Care Prescriptions: New dexamethasone 6 mg tablet 6 mg PO DAILY 7 Days Qty: 7 0RF amoxicillin-pot clavulanate 875-125 mg tablet 1 tab PO Q12H 10 Days Qty: 20 0RF No Action quetiapine 25 mg Tablet 25 mg PO QAM quetiapine 25 mg Tablet 12.5 mg PO BEDTIME bupropion HCl [Wellbutrin SR] 150 mg Tablet Sustained-Release 12 Hr 150 mg PO BID acetaminophen 650 mg Tablet 650 mg PO Q4H PRN (Reason: Pain) oxycodone-acetaminophen 5-325 mg Tablet 2 tab PO BID PRN (Reason: Pain) dicyclomine 20 mg Tablet 20 mg PO BID metoprolol tartrate 50 mg Tablet 50 mg PO BID gabapentin 300 mg Capsule 300 mg PO BID loratadine 10 mg Tablet 10 mg PO DAILY fluoxetine 60 mg Tablet 60 mg PO DAILY losartan 50 mg Tablet 50 mg PO DAILY omeprazole 40 mg Capsule,Delayed Release(Dr/Ec) 40 mg PO DAILY sildenafil 100 mg Tablet 100 mg PO DAILY PRN (Reason: Sexual Activity) Rx Instructions: administer 30 minutes to 4 hours before activity psyllium Powder 2 tsp PO BID Rx Instructions: mix into at least 4 oz water or juice before administering terazosin 2 mg Capsule 4 mg PO DAILY multivitamin with minerals Tablet 1 tab PO DAILY rosuvastatin 40 mg Tablet 40 mg PO DAILY insulin glargine 100 unit/mL Cartridge 45 unit SUBCUT DAILY omega-3 fatty acids 500 mg Capsule 1,000 mg PO DAILY insulin aspart (niacinamide) 100 unit/mL Solution 1 - 4 sliding scale dose SUBCUT TIDAC cyclobenzaprine 10 mg Tablet 10 mg PO DAILY PRN (Reason: Muscle Spasm) oxybutynin chloride 15 mg Tablet Extended Release 24hr 15 mg PO DAILY meloxicam 15 mg Tablet 15 mg PO DAILY cyanocobalamin (vitamin B-12) 500 mcg Tablet 2,000 mcg PO DAILY tamsulosin 0.4 mg Capsule 0.8 mg PO BEDTIME amlodipine 2.5 mg Tablet 2.5 mg PO DAILY Qty: 30 0RF Protocol: Hold for SBP< HOLD for SBP < : 90 carvedilol 12.5 mg Tablet 12.5 mg PO BID Qty: 60 0RF Protocol: Hold for SBP/HR < HOLD for SBP < : 90 HOLD for HR < : 60 furosemide [Lasix] 40 mg tablet 40 mg PO DAILY Qty: 30 0RF cefuroxime axetil 250 mg tablet 250 mg PO Q12H Qty: 14 0RF triamcinolone acetonide [Nasacort] 55 mcg aerosol,spray 1 spray intranasal DAILY 7 Days Qty: 16.9 0RF Rx Instructions: administer into each nostril amoxicillin-pot clavulanate 875-125 mg tablet 1 tab PO Q12H 10 Days Qty: 20 0RF Referrals: [facility] [Provider Group, Ear, Nose, Throat] Clinical Impression: Infection of parotid gland Interventions: ED Discharge Assessment Last Done: 08/02/25 17:49 Discharge Date/Time: 08/02/25 17:49 Print Language: Unable To Collect
[2025-08-02 13:49] LABS: MANUAL DIFF FLAG NO
[2025-08-02 13:53] LABS: Hematocrit 36.0 % (42.0-52.0); Hemoglobin 12.4 g/dl (14.0-18.0); Imm Gran Abs Auto 0.05 X10*3/uL (0.00-0.03); Imm Gran Pct Auto 0.4 % (0.0-0.4); Lymphocytes Absolute Auto 0.9 X10*3/uL (1.2-4.9); Mean Corpuscular HGB Conc 34.4 g/dl (31.0-36.0); Mean Corpuscular Hemoglobin 29.2 pg (27.0-33.0); Mean Corpuscular Volume 84.9 fL (80.0-98.0); NRBC Abs Auto 0.000 X10*3/uL (0.0-0.012); NRBC Pct Auto 0.0 /100WBC (0.0-0.2); Platelet Count 197 X10*3/uL (160-400); Red Blood Count 4.24 X10*6/uL (4.60-5.80); White Blood Count 13.2 X10*3/uL (4.8-10.8)
[2025-08-02 14:05] VITALS: BP 142/117; PULSE 86; RESP 22; TEMP 37.2; O2SAT 95
[2025-08-02 14:05] LABS: Alanine Aminotransferase 22 U/L (0-40); Albumin Level 4.5 g/dL (3.5-5.0); Alkaline Phosphatase 78 U/L (39-117); Anion Gap 13 (12-20); Aspartate Amino Transferase 16 U/L (5-37); Blood Urea Nitrogen 11 mg/dL (9-16); Calcium 9.4 mg/dL (8.4-10.2); Carbon Dioxide 25 mmol/L (22-29); Chloride 105 mmol/L (96-108); Creatinine Clr Calc Pharmacy 209.6; Estimated Glomerular Filt Rate > 60; Potassium 3.9 mmol/L (3.3-5.1); Sodium 139 mmol/L (135-145); Total Protein 6.9 g/dL (6.5-8.0)
[2025-08-02] MEDS: iohexoL 350 MG/ML 100 ML INFUS..BTL IV (14:32)
--- NOTE | 2025-08-02 15:36 | PC.NURSE ---
pt is alert and oriented, skin pwd, respirations even and unlabored, ls clear, pt reports that he had dental work done yesterday on his right sided and now has swelling to the face and painful, states that dentist told the pt to come to the ed because he might have his salivating glands blocked and they might obstruct his airway, v stable at this time
--- OUTSIDE RECORDS SUMMARY | 2025-08-02 16:02 | XMS_ITS | Clinical Summary ---
Author Organization Formerly [facility] Address [address] [place] [address] Care Team Providers Care Larry Car Operator Name Role Phone Pcp, No Primary Care [...] 50+ (1 of 1 - PCV) 2017 RSV Vaccine 50 years and old er and Patients (1 - Risk 50-74 years 1-dose series) 2017 Zoster (Shingles) Vaccine (1 of 2) 2017 Influenza Vaccine 04/28/2025 COVID-19 Vaccine ( - 2023- season) 2025 Insurance [facility] Care Teams Larry Car Operator Relationship Specialty Start Date End Date Pcp, No PCP - General General Medicine 08/08/22
--- OUTSIDE RECORDS SUMMARY | 2025-08-02 16:02 | XMS_ITS | Clinical Summary ---
Author Organization [facility], Address [address] [place] [address] [place] [address] Phone Care Team Providers Care Nutritionalist Name Role Phone Unavailable Primary Care Provider Unavailabl e Social History Tobacco Use Types Packs/Day Years Used Date Smoking Tobacco: Never Assessed Sex and Gender Information Value Date Recorded Sex Assigned at Not on file Legal Sex Male 1:57 PM EST Gender Identity Not on file Sexual Orientation Not on file Plan of Treatment Health Maintenance Due Date Last Done Comments Hepatitis B Vaccine (1 of 3 - 19+ 3-dose series) 04/29 Pneumococcal Vaccine: 50+ Years (1 of 2 - PCV) 986 Colorectal Cancer Screening: Annual FOBT 2016 Colorectal Cancer Screening: Colonoscopy 2016 Colorectal Cancer Screening: Sigmoidoscopy 2016 Influenza Vaccine (#1) 2025 Insurance [facility] [employer] 1,2,3 (VACCN)
--- OUTSIDE RECORDS SUMMARY | 2025-08-02 16:02 | XMS_ITS | Encounter Summary ---
Author Organization [facility] Address [address] [facility] [address] [place] [id number] Phone Care Team Providers Care Sanforizing Machine Operator Name Role Phone Holden Koo NP Primary Care Provide r Holden Shin Primary Care Provid er Encounter Details Date Type Department Care Team (Late st Contact Info) Description 09/12/2021 Procedure Pass [facility], Ct Scan - [address] [address] Social History Tobacco Use Types Packs/Day Years [...] Diagnoses Not on filedocumented in this encounter Care Teams Sanforizing Machine Operator Relationship Specialty Start Date End Date Holden Koo NP [address] [place] [address] PCP - General Family Medicine 09/11/21 02/03/23 Holden Shin PA [address] [place] [address] PCP - General 02/04/23 documented as of this encounter Additional Source Comments The information contained in this document represents components of the legal health record. It is not the complete legal health record.[facility]
--- OUTSIDE RECORDS SUMMARY | 2025-08-02 16:02 | XMS_ITS | Encounter Summary ---
Author Organization [facility] Address [address] [facility] [address] [place] [address] Phone Care Team Providers Care Cloud Infrastructure Architect Name Role Phone Holden Koo NP Primary Care Provide r Holden Shin Primary Care Provid er Encounter Details Date Type Department Care Team (Late st Contact Info) Description 11/20/2022 Procedure Pass [facility], Ct Scan - [address] [address] Social History Tobacco Use Types Packs/Day Years [...] PM EST documented as of this encounter Functional Status * Calculated C-SSRS Risk Score (Lifetime/Recent) Answer Date of Assessment Author No Risk Indicated 11/20/2022 1:06 AM Cass Celeste RN * Long Suicide Severity Rating Scale (Screener/Recent Self-Report) Question Answer Date of Assessment Author 1. Wish to be (Past 1 Month) No 023 1:06 AM Lauro Celeste, RN 2. Non-Specific Active Suici margie Thoughts (Past 1 Month) No 11/20/2022 1:06 AM Lauro Celeste RN 6. Suicidal Behavior (Lifetime) No 3 1:06 AM Lauro Celeste RN documented as of this encounter Plan of Treatment Not on file documented as of this encounter Visit Diagnoses Not on filedocumented in this encounter Care Teams Cloud Infrastructure Architect Relationship Specialty Start Date End Date Holden Koo NP [address] [place] [address] PCP - General Family Medicine 09/11/21 02/03/23 Holden Shin PA [address] [place] [address] PCP - General 02/04/23 documented as of this encounter Additional Source Comments The information contained in this document represents components of the legal health record. It is not the complete legal health record.[facility]
--- OUTSIDE RECORDS SUMMARY | 2025-08-02 16:02 | XMS_ITS | Encounter Summary ---
Author Organization [facility] Address [address] [facility] [address] [place] [id number] Phone Care Team Providers Care Captain Waiter Name Role Phone Holden Koo NP Primary Care Provide r Holden Shin Primary Care Provid er Encounter Details Date Type Department Care Team (Late st Contact Info) Description 01/30/2022 Documentation [facility] Rad Onc [address] [place] [id number] Shania Sanchez [place] [address] [place] [phone] [email or web address] Social History Tobacco Use Types Packs/Day Years [...] on filedocumented in this encounter Care Teams Captain Waiter Relationship Specialty Start Date End Date Holden Koo NP [address] [place] [address] PCP - General Family Medicine 09/11/21 02/03/23 Holden Shin PA [address] [place] [address] PCP - General 02/04/23 documented as of this encounter Additional Source Comments The information contained in this document represents components of the legal health record. It is not the complete legal health record.[facility]
--- OUTSIDE RECORDS SUMMARY | 2025-08-02 16:02 | XMS_ITS | Clinical Summary ---
Author Organization [facility] Address [address] [place] [address] Phone Care Team Providers Care Oyster Preparer Name Role Phone Holden Shin Primary Care Provid er Allergies Active Allergy Reactions Criticality Noted Date Comments Aspirin 12/29/2008 Other reaction(s): Bleeding Atorvastatin Hives,Rash Low 08/17/2006 Empagliflozin Rash Low 06/07/2021 Fenofibrate Diarrhea,Nausea Only 04/12/2008 Other reaction(s): Diarrhea, Nausea, Cramp Lisinopril 09/18/2006 Other reaction(s): Fatigue Niaspan Starter Pack 07/21/2016 [place] 09/11/2021 Medications cyclobenzaprine (FLEXERIL) 10 MG tablet Take 10 mg by mouth daily as needed. Active dicyclomine (BENTYL) 10 MG capsule Take 40 mg by mouth daily as needed. Active FLUoxetine (PROZAC) 20 MG capsule Take 60 mg by mouth daily. Active gabapentin (NEURONTIN) 600 MG tablet Take 300 mg by mouth 2 (two) times a day. Active insulin aspart protamine-insuli n aspart (NOVOLOG MIX 70/30) 100 unit/mL (70-30) injection pen Inject under the skin 2 (two) times a day with meals. 1 unit per 4 grams of carbohydrate Active loratadine (CLARITIN) 10 mg tablet Take 10 mg by mouth daily. Active meloxicam (MOBIC) 15 MG tablet Take 15 mg by mouth daily as needed for pain (specific location in comments). Active metoprolol tartrate (LOPRESSOR) 50 MG tablet Take 50 mg by mouth 2 (two) times a day. Active insulin glargine (LANTUS, BASAGLAR) 100 unit/mL (3 mL) InPn injection pen 70 Units daily. Acti ve omeprazole (PRILOSEC) 20 MG capsule Take 20 mg by mouth daily. Active polyethylene glycol (MIRALAX) 17 gram packet Take 17 g by mouth daily as needed. Active oxybutynin (DITROPAN) 5 MG tablet Take 15 mg by mouth 2 (two) times a day. Active pravastatin (PRAVACHOL) 40 MG tablet Take 40 mg by mouth daily. Active semaglutide (OZEMPIC) 1 mg/dose (2 mg/1.5 mL) subcutaneous injection pen Inject 1 mg under the skin every 7 days. Active tamsulosin (FLOMAX) 0.4 mg Cap Take 0.4 mg by mouth 2 (two) times a day. Active terazosin (HYTRIN) 2 MG capsule Take 2 mg by mouth nightly at bedtime. Active oxyCODONE-acetam inophen (PERCOCET) 5-325 mg per tablet Take 2 tablets by mouth 3 (three) times a day. Active clotrimazole (LOTRIMIN) 1 % cream Apply 1 application topically 2 (two) times a day. To groin area rash 1 Active cephalexin (KEFLEX) 500 MG capsule Take 1 capsule (500 mg total) by mouth 3 (three) times a day. 21 capsule 3 Active Active Problems Problem Noted Date Diagnosed Date Prostate cancer 09/25/2021 Morbid obesity 09/25/2021 Social History Tobacco Use Types Packs/Day Years Used Date Smoking Tobacco: Some Days Smokeless Tobacco: Never Alcohol Use Standard Drinks/Week Comments Not Currently 0 (1 standard drink = 0.6 oz pur e alcohol) Education Answer Date Recorded Are you interested in more education? Not on la nena e 01/23/2023 Are you concerned about learning? Not on file 01/23/2023 No 01/23/2023 No 01/23/2023 Digital Access Answer Date Recorded No 02/17/2023 No 02/17/2023 Reliable internet access at home? Not on file 02/17/2023 Device with a working camera? Not on file Intimate Partner Violence Answer Date R ecorded Are you denied basic needs s uch as food, clothing, or medical care? No 03/26/2023 In the past 12 months have y ou been in a relationship with a person who hurts, threatens, or tries to control you? No 03/26/2023 Are you denied basic needs s uch as food, clothing, or medical care? No 03/26/2023 In the past 12 months have y ou been in a relationship with a person who hurts, threatens, or tries to control you? No 03/26/2023 Sex and Gender Information Value Date Recorded Sex Assigned at Male 11/14/2021 6:37 PM EST Legal Sex Male 9:39 PM EDT Gender Identity Male 11/14/2021 6:37 PM EST Sexual Orientation Straight 11/14/2021 6: 37 PM EST Last Filed Vital Signs Vital Sign Reading Time Taken Comments Blood Pressure 137/69 03/26/2023 12:22 PM EDT Pulse 84 03/26/2023 12:22 PM EDT Temperature 37.1 C (98.7 F) 03/26/2023 10:06 AM EDT Respiratory Rate 22 03/26/2023 12:22 PM EDT Oxygen Saturation 94% 03/26/2023 12:22 PM EDT Inhaled Oxygen Concentration - - Weight 222.7 kg (491 lb) 03/26/2023 10:26 AM EDT Height 190.5 cm (6' 3 ) 03/26/2023 10:26 AM EDT Body Mass Index 61.37 03/26/2023 10:26 AM EDT Plan of Treatment Health Maintenance Due Date Last Done Comments LIPID PANEL 1967 DEPRESSION SCREENING 1979 SMOKING Hx and SMOKELESS TOBACCO SCREENING 1980 HEPATITIS C SCREENING 1985 HIV ONE-TIME SCREENING (18-65 YEARS) 1985 COLOGUARD 2012 COLONOSCOPY 2012 COLORECTAL CANCER SCREENING 2012 FIT TEST 2012 FOBT 2012 SIGMOIDOSCOPY 2012 VIRTUAL COLONOSCOPY 2012 RSV VACCINE (1 - Risk 50-74 years 1-dose series) 2017 SCREENING FOR DIABETES 09/13/2024 09/13/2021 INFLUENZA VACCINE (#1) 2025 3, 06/07/2021, 06/11/2020, Additional history exists COVID-19 VACCINE ( season) 2025 08/16/2021, 01/29/2021, 01/01/2021 Adult Td,Tdap Booster 06/19/2030 06/19/2020 , 10/29/2009, 07/11/2004 ZOSTER VACCINES Completed 10/04/2019, 06/17/2019 PNEUMOCOCCAL VACCINES (50+ years) Completed 03/12/2023 HEPATITIS A VACCINES Aged Out No long er eligible based on patient's age to complete this topic HIB VACCINES Aged Out No longer eligi ble based on patient's age to complete this topic MENINGOCOCCAL VACCINES (ACWY) Aged Out No longer eligible based on patient's age to complete this topic MENINGOCOCCAL VACCINES (B) Aged Out N o longer eligible based on patient's age to complete this topic Medical Devices Not on file Insurance MEDICARE PART A & B [facility] MEDICARE PART A & B Member Subscriber Plan / Payer (Ef fective 2005-) Name:Jermaine Castillo Member ID:[id number] Relation to Subscriber:Self Name:Jermaine Castillo Subscriber ID:[id number] Payer ID:[id number] Group ID:Not on file Type:Medicare Address: [place] [address] MEDICARE PART A & B Member Subscriber Plan / Payer (Ef fective 2005-) Name:Jermaine Castillo Member ID:[id number] Relation to Subscriber:Self Name:Jermaine Castillo Subscriber ID:[id number] Payer ID:[id number] Group ID:Not on file Type:Medicare Address: [place] [address] [facility] MEDICARE PART A & B Member Subscriber Plan / Payer (Ef fective 2005-Present) Name:Jermaine Castillo Member ID:[id number] Relation to Subscriber:Self Name:Jermaine Castillo Subscriber ID:[id number] Payer ID:[id number] Group ID:Not on file Type:Medicare Address: [place] [address] MEDICARE PART A & B MEDICARE PART A & B Member Subscriber Plan / Payer (Ef fective 2005-Present) Name:Jermaine Castillo Member ID:[id number] Relation to Subscriber:Self Name:Jermaine Castillo Subscriber ID:[id number] Payer ID:[id number] Group ID:Not on file Type:Medicare Address: [place] [address] MEDICARE PART A & B Member Subscriber Plan / Payer (Ef fective 2005-) Name:Jermaine Castillo Member ID:[id number] Relation to Subscriber:Self Name:Jermaine Castillo Subscriber ID:[id number] Payer ID:[id number] Group ID:Not on file Type:Medicare Address: [place] [address] MEDICARE PART A & B MEDICARE PART A & B Care Teams Oyster Preparer Relationship Specialty Start Date End Date Holden Shin PA PCP - General 02/04/23 Additional Source Comments The information contained in this document represents components of the legal health record. It is not the complete legal health record.[facility]
--- OUTSIDE RECORDS SUMMARY | 2025-08-02 16:02 | XMS_ITS | Encounter Summary ---
Author Organization [facility] Address [address] [place] [address] Phone Care Team Providers Care Tank Operator Name Role Phone Holden Koo NP Primary Care Provide r Holden hSin Primary Care Provid er Reason for Referral * MRI/CAT Scan - Closed Specialty Diagnoses / Procedures Referred By Contac t Referred To Contact Radiology Diagnoses Low back pain, unspecified back pain laterality, unspecified chronicity, unspecified whether sciatica present Procedures MRI Lumbar Spine CHG MRI, LUMBAR SPINE CHG MRI, LUMBAR SPINE CONTRAST CHG MRI, LUMBAR SPINE COMBO Fatou Heard, INDUSTRIAL EQUIPMENT MECHANIC [address] [place] [address] Phone: tel: fax: Referral ID Status Reason Start Date Expiration Date Visits Re quested Visits Authorized [id number] Closed 07/11/2022 09/26/2022 1 1 Encounter Details Date Type Department Care Team (Latest Contact Info) Description 07/11/2022 Transcribe Orders Virtual Department [address] [place] [address] Fatou Heard, INDUSTRIAL EQUIPMENT MECHANIC [address] [place] [address] Low back pain, unspecified back pain laterality, [...] Primary documented in this encounter Care Teams Tank Operator Relationship Specialty Start Date End Date Holden Koo NP [address] [place] [address] PCP - General Family Medicine 09/11/21 02/03/23 Holden Shin PA [address] [place] [address] PCP - General 02/04/23 documented as of this encounter Additional Source Comments The information contained in this document represents components of the legal health record. It is not the complete legal health record.[facility]
--- OUTSIDE RECORDS SUMMARY | 2025-08-02 16:02 | XMS_ITS | Encounter Summary ---
Author Organization [facility] Address [address] [place] [address] Phone Care Team Providers Care Marine Services Technician Name Role Phone Unavailable Primary Care Provider Unavailabl e Encounter Details Date Type Department Care Team (Late st Contact Info) Description 10/22/2022 Documentation Only [facility], [address] [place] [address] Mando Sawyer MD [address] [place] [address] Social History Tobacco Use Types Packs/Day Years [...]
--- NOTE | 2025-08-02 16:35 | MHC.EDTECH ---
Outgoing call @ 1649 to ENT ([facility]) for consult per request by Dr. Ordaz spoke to MandyJimena
[2025-08-02 17:02] VITALS: BP 171/86; PULSE 85; RESP 20; TEMP 36.9; O2SAT 94
[2025-08-02 17:49] VITALS: BP 171/86; PULSE 85; RESP 20; TEMP 36.9; O2SAT 94
== END 2025-08-02 17:49 | disposition home or self-care (01) ==
PROVIDERS: Emergency Medicine; Physician Assistant; Emergency Provider Student in an Organized Health Care Education/Training Program; PCP Internal Medicine Endocrinology, Diabetes & Metabolism
DX: K11.20 Sialoadenitis, unspecified (principal); R22.1 Localized swelling, mass and lump, neck; I10 Essential (primary) hypertension; E11.9 Type 2 diabetes mellitus without complications
CPT/HCPCS: 36415; 70491; 80053; 83605; 85025; 87040; 96365; 96375; 99284; 99285; J0295; J0736; J1100; Q9967

== ENCOUNTER → 2025-08-02 12:57 | Outpatient (BNV) | payer OTHER, SELFPAY | PROVIDERS: Emergency Provider Student in an Organized Health Care Education/Training Program; PCP Internal Medicine Endocrinology, Diabetes & Metabolism; Visit Provider Radiology Diagnostic Radiology | DX: D11.0 Benign neoplasm of parotid gland (principal); R59.0 Localized enlarged lymph nodes | CPT/HCPCS: 70491 ==

== ENCOUNTER 2025-08-23 11:40 | Emergency (ER) | payer OTHER, SELFPAY ==
--- NOTE | ~2025-08-23 | CT_ITS ---
EXAMINATION: CT SOFT TISSUE NECK WITH CONTRAST CLINICAL INFORMATION: Follow-up from 08/02/2025, worsening facial/neck cellulitis. COMPARISON: CT neck dated 08/02/2025. TECHNIQUE: Following the intravenous administration of 70 mL of Omnipaque 350 intravenous contrast, helical imaging was performed in the axial plane with generation of coronal and sagittal reformatted images. This CT examination was performed using dose optimization techniques as appropriate, variously including the following: *Automated exposure control *Adjustment of mA and/or kV according to patient size (this includes techniques or standardized protocols for targeted exams where dose is matched to indication/reason for exam; i.e. extremities or head) *Use of iterative reconstruction technique FINDINGS: In the interval from the prior study, there has been significant worsening of overall inflammatory changes throughout the right neck, with involvement of the left neck as well. There is significant enlargement and swelling of the right parotid gland, with thickening of the right platysma muscle, and fatty infiltrative changes and fluid tracking along the right submandibular space into the anterior cervical space, as well as the right etl programmer space and right parapharyngeal region/fat plane. There is also thickening of the left platysma and subcutaneous infiltrative changes superficial to the left platysma. There is no deep left neck involvement. In the retropharyngeal space, there is a fluid collection measuring approximately 0.8 x 3.2 x 5.2 cm (AP, TRV, CC). This begins at the mid C2 level, and extends to the level of the cricoid cartilage inferiorly. There is diffuse hyperemia and thickening of the right greater than left palatine tonsil, soft palate, and the hypopharyngeal armstrong, without definite peritonsillar abscess identified. The epiglottis is significantly thickened. There is leftward deviation and moderate effacement of the hypopharyngeal airway. The larynx images normally although the vocal cords are abducted, likely secondary to breath-hold. The subglottic trachea is widely patent. The thyroid gland appears normal. Lymph Nodes: -Enlarged reactive lymph nodes within the neck, right greater than left anterior cervical chains. Carotid Sheath Structures: -Normal. Jugular veins appear patent. Salivary Glands: -Enlargement and inflammation of the right parotid gland, slightly worsened from the prior exam. 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 -Normal-appearing left submandibular gland. Mild reactive thickening of the right submandibular gland. Publicity Manager Spaces: -As above. Anterior Cervical Space: -As above. Imaged Intracranial Contents: -No mass effect, edema, or abnormal enhancement. Cortical and dural venous sinuses are patent. The skull base is normal. Globes and Orbits: -Normal. Paranasal Sinuses/Mastoids/Tympanic Spaces: -Normally aerated bilaterally. Lung Apices and Superior Mediastinal Structures: -Imaged lung apices are clear and superior mediastinal structures are normal. Bony Structures: -No suspicious bone lesions. No fractures. -TM joints demonstrate mild anterior subluxation on the right. -There is moderate cervical spondylosis present. CT/CT soft tissue neck w IV con IMPRESSION: 1. Extensive inflammation with phlegmonous changes in the right greater than left neck as discussed above, most likely having arose from the right parotid gland, with a new retropharyngeal fluid collection present, without definite peripheral enhancement, measuring approximately 0.8 x 3.2 x 5.2 cm (AP, TRV, CC). This extends from the mid C2 level to the level of the cricoid cartilage. There is no additional formed or drainable abscess present within the neck. 2. There is inflammatory involvement of the right etl programmer space and right parapharyngeal space. 3. There is inflammatory thickening of the right greater than left palatine tonsils, soft palate, and to a lesser degree the hypopharyngeal mucosa. There is resultant moderate effacement of the hypopharyngeal airway, with leftward deviation. 4. There is reactive lymphadenopathy within the neck. Electronically signed by: Topher Mccain MD 08/23/2025 03:02 PM KARYN HOPE
[2025-08-23 12:00] VITALS: BP 135/68; PULSE 95; RESP 18; TEMP 36.8; O2SAT 95; BMI 47.2
--- NOTE | 2025-08-23 12:20 | ED.GENADULT ---
HPI - General Adult General Chief complaint: General Medical Stated complaint: face swelling, sob Time Seen by Provider: 08/23/25 12:20 Source: patient and family (patient's son) Mode of arrival: ambulatory Limitations: no limitations History of Present Illness ED Provider: Jiada Dudley PA-C HPI narrative: Patient is a 60 year old assigned male at with a history of PTSD, prostate cancer, HTN, DM, and chronic back pain presenting to the emergency department today with worsening neck pain and swelling. Patient states that on 08/02/2025 he was here for the same thing and diagnosed with a right sided parotid gland infection with extended edema. Patient was advised to be admitted to the hospital for continued IV antibiotics and he instead decided to be discharged with oral antibiotics and close outpatient follow up. Patient states that he finished his oral antibiotics as prescribed and things got better for a little while. Patient states that things started to get worse again and he saw the [place] [facility] who recommended he come to the emergency department immediately. Patient denies any other complaints at this time. Related Data Home Medications ?Medication ?Instructions ?Recorded ?Confirmed acetaminophen 650 mg tablet 650 mg PO Q4H PRN Pain 11/21/22 11/21/22 bupropion HCl 150 mg tablet,12 hr 150 mg PO BID 11/21/22 11/21/22 sustained-release (Wellbutrin SR) cyanocobalamin (vitamin B-12) 500 2,000 mcg PO DAILY 11/21/22 11/21/22 mcg tablet cyclobenzaprine 10 mg tablet 10 mg PO DAILY PRN Muscle Spasm 11/21/22 11/21/22 dicyclomine 20 mg tablet 20 mg PO BID 11/21/22 11/21/22 fluoxetine 60 mg tablet 60 mg PO DAILY 11/21/22 11/21/22 gabapentin 300 mg capsule 300 mg PO BID 11/21/22 11/21/22 insulin aspart (niacinamide) 1 - 4 sliding scale dose subcut 11/21/22 11/21/22 (U-100) 100 unit/mL subcutaneous TIDAC solution insulin glargine 100 unit/mL 45 unit subcut DAILY 11/21/22 11/21/22 subcutaneous cartridge loratadine 10 mg tablet 10 mg PO DAILY 11/21/22 11/21/22 losartan 50 mg tablet 50 mg PO DAILY 11/21/22 11/21/22 meloxicam 15 mg tablet 15 mg PO DAILY 11/21/22 11/21/22 metoprolol tartrate 50 mg tablet 50 mg PO BID 11/21/22 11/21/22 multivitamin with minerals 1 tab PO DAILY 11/21/22 11/21/22 omega-3 fatty acids 500 mg capsule 1,000 mg PO DAILY 11/21/22 11/21/22 omeprazole 40 mg capsule,delayed 40 mg PO DAILY 11/21/22 11/21/22 release oxybutynin chloride 15 mg 15 mg PO DAILY 11/21/22 11/21/22 tablet,extended release 24 hr oxycodone-acetaminophen 5 mg-325 2 tab PO BID PRN Pain 11/21/22 11/21/22 mg tablet psyllium 2 tsp PO BID 11/21/22 11/21/22 quetiapine 25 mg tablet 12.5 mg PO BEDTIME 11/21/22 11/21/22 quetiapine 25 mg tablet 25 mg PO QAM 11/21/22 11/21/22 rosuvastatin 40 mg tablet 40 mg PO DAILY 11/21/22 11/21/22 sildenafil 100 mg tablet 100 mg PO DAILY PRN Sexual Activity 11/21/22 11/21/22 tamsulosin 0.4 mg capsule 0.8 mg PO BEDTIME 11/21/22 11/21/22 terazosin 2 mg capsule 4 mg PO DAILY 11/21/22 11/21/22 Previous Rx's ?Medication ?Instructions ?Recorded amlodipine 2.5 mg tablet 2.5 mg PO DAILY #30 tabs 11/26/22 carvedilol 12.5 mg tablet 12.5 mg PO BID #60 tabs 11/26/22 cefuroxime axetil 250 mg tablet 250 mg PO Q12H #14 tabs 08/21/23 furosemide 40 mg tablet (Lasix) 40 mg PO DAILY #30 tabs 08/21/23 amoxicillin 875 mg-potassium 1 tab PO Q12H 10 days #20 tabs 04/21/25 clavulanate 125 mg tablet triamcinolone acetonide 55 mcg 1 spray intranasal DAILY 7 days 04/21/25 nasal spray aerosol (Nasacort) #16.9 mL amoxicillin 875 mg-potassium 1 tab PO Q12H 10 days #20 tabs 08/02/25 clavulanate 125 mg tablet dexamethasone 6 mg tablet 6 mg PO DAILY 7 days #7 tabs 08/02/25 Allergies Allergy/AdvReac Type Severity Reaction Status Date / Time strawberry (STRAWBERRY) Allergy Severe ANAPHYLAXIS Verified 08/23/25 12:03 aspirin (ASPIRIN) Allergy Unknown SIBLINGS Verified 08/23/25 12:03 WITH BLOOD DISORDER atorvastatin (ATORVASTATIN) Allergy Unknown RASH, Verified 08/23/25 12:03 SWELLING fenofibrate (FENOFIBRATE) Allergy Unknown RASH, Verified 08/23/25 12:03 SWELLING lisinopril (LISINOPRIL) Allergy Unknown RASH,SWELLI Verified 08/23/25 12:03 NG niacin (From NIASPAN Allergy Unknown RASH,SWELLI Verified 08/23/25 12:03 EXTENDED-RELEASE) NG poison bruno extract Allergy Rash Verified 08/23/25 12:03 poison oak extract Allergy Rash Verified 08/23/25 12:03 poison sumac extract Allergy Rash Verified 08/23/25 12:03 Thebes (Diagnostic) Allergy Unknown Unknown Uncoded 08/23/25 12:03 Review of Systems Constitutional: Constitutional: Reports as per HPI Eyes: Eyes: Reports as per HPI ENT: Reports as per HPI Cardiovascular: Cardiovascular: Reports as per HPI Respiratory: Respiratory: Reports as per HPI Gastrointestinal: Gastrointestinal: Reports as per HPI Genitourinary: Genitourinary: Reports as per HPI Musculoskeletal: Musculoskeletal: Reports as per HPI Integumentary/Breasts: Skin/Breast: Reports as per HPI Neurologic: Reports as per HPI Psychiatric: Psychiatric: Reports as per HPI Endocrine: Endocrine: Reports as per HPI Hematologic/Lymphatic: Hematologic/Lymphatic: Reports as per HPI Allergic/Immunologic: Allergic/Immunologic: Reports as per HPI PMF Past Medical History Attestation statement: The following information was validated with the patient. (all information validated with the patient's son) Source: old records reviewed, obtained from family (patient's son provided additional history and confirmed the history provided by the patient. ) and nursing notes reviewed Medical History Constipation Morbidly obese Prostate cancer Diabetes Ritchie War syndrome PTSD (post-traumatic stress disorder) Surgical History History of prostate surgery History of back surgery Social History Social History Household Members: Family Housing: House Alcohol intake: never Patient Tobacco Use Status: Former Tobacco user Smoked in Last 30 Days: No Use of substances other than those prescribed or required for medical reasons: No Advance Directives: No Advance Directives Information Provided: Yes Do you have a plan to hurt others: No Plan service: Yes Current occupational status: employed Physical Exam ED Vital Signs: Vital Signs - 24 hr 08/23/25 12:00 08/23/25 14:04 08/23/25 15:23 Temperature 98.2 F 99.5 F Pulse Rate 95 83 Respiratory Rate 18 18 22 H Blood Pressure 135/68 138/55 L Pulse Oximetry 95 93 Oxygen Delivery Method Room Air Room Air BMI result Body Mass Index 47.2 Const General: cooperative, no acute distress, alert and awake Nutritional Appearance: well nourished Orientation/consciousness: patient oriented x3 HENMT Other: Erythema around the anterior neck from below the chin to both left and right sided of the neck Pain with palpation of the anterior neck Pain with palpation of the right jaw / behind the right ear Head: Yes atraumatic Ears: hearing grossly normal bilaterally and external ears normal General nose exam: Normal external nose present, no nasal discharge noted and no epistaxis Face and sinus: No abrasion and No laceration Mouth: Normal oral and palatal mucosa present, no drooling and no muffled voice Eyes General: appearance normal, both eyes and all related structures Periorbital: periorbital findings normal Eyelids: Yes eyelids normal Conjunctivae: conjunctivae normal Pupils: Equal, round and reactive pupils present EOM: EOMs intact bilaterally Neck Neck: Yes full ROM Resp Effort & Inspection: normal respiratory effort and able to speak in complete sentences Neuro General: patient oriented x3, moves all extremities and CN's II-XI intact bilaterally Cranial nerves: Yes Equal, round and reactive pupils present Cognition (Neuro): normal cognition Extrem General: Yes normal to inspection, Yes full ROM and Yes capillary refill normal Psych Appearance: grossly normal Mental Status: mental status grossly normal Affect: normal affect Attitude: cooperative Thought process: Normal thought process present Thought content: Normal thought content present Insight: Good insight present (Psych) Medications Administered Generic Name Dose Route Start Last Admin Trade Name Freq PRN Reason Stop Dose Admin Vancomycin HCl 2,000 mg in 500 mls @ 250 mls/hr 11/26/25 14:03 08/23/25 14:45 Vancomycin/Ns IV 08/23/25 16:02 250 mls/hr ONCE ONE Administration Discontinued Medications Generic Name Dose Route Start Last Admin Trade Name Veronique PRN Reason Stop Dose Admin Dexamethasone Sodium Phosphate 10 mg 08/23/25 15:31 08/23/25 15:39 Dexamethasone Sod Phosphate 10 Mg/Ml Vial IVPUSH 08/23/25 15:32 10 mg ONCE ONE Administration Diazepam 5 mg 08/23/25 13:08 08/23/25 13:13 Diazepam 10 Mg/2 Ml Cartridge IVPUSH 08/23/25 13:09 5 mg STAT STA Administration Piperacillin Sod/Tazobactam 50 mls @ 100 mls/hr 08/23/25 14:03 08/23/25 14:46 Sod 3.375 gm/ Sodium Chloride IV 08/23/25 14:32 Infused ONCE ONE Infusion Morphine Sulfate 4 mg 08/23/25 14:46 08/23/25 15:23 Morphine Sulfate 4 Mg/Ml Cartridge IVPUSH 08/23/25 14:47 4 mg ONCE ONE Administration Protocol Medical Decision Making Medical Decision Making MDM Narrative: Patient is a 60 year old assigned male at with a history of PTSD, prostate cancer, HTN, DM, and chronic back pain presenting to the emergency department today with worsening neck pain and swelling. Patient's physical exam was as noted in the physical exam portion of this note. Patient's airway was patent and he was tolerating secretions well. Patient's blood work showed a WBC count of 18.6, ESR 104, and CRP of 42.69. Patient's CT soft tissue neck showed an overall worsening infection when compared to his imaging done on 08/02/2025. The radiologist impression of the CT soft tissue neck reads: Extensive inflammation with phlegmonous changes in the right greater than left neck as discussed above, most likely having arose from the right parotid gland, with a new retropharyngeal fluid collection present, without definite peripheral enhancement, measuring approximately 0.8 x 3.2 x 5.2 cm (AP, TRV, CC). This extends from the mid C2 level to the level of the cricoid cartilage. Inflammatory involvement of the right blasting gang miner space and right parapharyngeal space. Inflammatory thickening of the right greater than left palatine tonsils, soft palate, and to a lesser degree the hypopharyngeal mucosa. There is resultant moderate effacement of the hypopharyngeal airway, with leftward deviation. Reactive lymphadenopathy within the neck. Patient was given IV Vancomyin, Zosyn, Valium, and Morphine. Given patient's worsening infection - patient needs to be admitted to the hospital however, cannot be admitted at [facility] due to lack of ENT coverage. I called [facility] who stated they were closed to ENT transfers at this time due to capacity. I called [email or web address] who stated their ED team would like me to first present to their ENT team. Unfortunately, I did not ever receive a call from their ENT team. I called and spoke to [facility] who agreed to accept this patient as a transfer to the [facility] ED under Dr. Ortega. I explained my physical exam findings as well as all test results to the patient and the patient's son. I answered all questions asked by the patient and the patient's son. Patient and the patient's son verbalized agreement and understanding with this treatment plan and transfer to [facility]. Differential Diagnosis Differential Diagnoses: The differential diagnosis associated with the presentation includes Retropharyngeal abscess Parotid gland abscess / infection Cellulitis of the neck Admission/Observation Consideration of admission/observation: Escalation of care including admission/observation considered Patient transferred to [facility] as noted in the MDM Rationale portion of this note. Lab Data [facility] Lab Attestation statement: I reviewed the patient's lab results. My interpretation of these results are in the MDM Rationale portion of this note. 08/23/25 12:44 08/23/25 12:44 Labs: Lab Results 08/23/25 Range/Units 12:44 WBC 18.6 H (4.8-10.8) X10*3/uL RBC 4.05 L (4.60-5.80) X10*6/uL Hgb 11.9 L (14.0-18.0) g/dl Hct 34.6 L (42.0-52.0) % MCV 85.4 (80.0-98.0) fL MCH 29.4 (27.0-33.0) pg MCHC 34.4 (31.0-36.0) g/dl RDW 12.9 (11.0-16.0) % Plt Count 197 (160-400) X10*3/uL MPV 9.2 L (9.4-12.4) fL Immature Gran % (Auto) 1.0 H (0.0-0.4) % Neut % (Auto) 86.5 H (45-73) % Lymph % (Auto) 3.7 L (20-40) % [place] % (Auto) 8.5 (2-11) % Eos % (Auto) 0.1 (0-4) % Baso % (Auto) 0.2 (0-2) % Lymph # (Auto) 0.7 L (1.2-4.9) X10*3/uL [place] # (Auto) 1.6 H (0.1-1.2) X10*3/uL Eos # (Auto) 0.0 (0.0-0.4) X10*3/uL Baso # (Auto) 0.0 (0.0-0.2) X10*3/uL Abs Immat Gran (auto) 0.19 H (0.00-0.03) X10*3/uL Absolute Neuts (auto) 16.0 H (2.0-8.3) x10*3/uL Absolute Nucleated RBC 0.000 (0.0-0.012) X10*3/uL Nucleated RBC % (auto) 0.0 (0.0-0.2) /100WBC Smear Tech's Comments VERIFIED ESR 104 H (0-15) MM/HR Sodium 137 (135-145) mmol/L Potassium 4.1 (3.3-5.1) mmol/L Chloride 100 (96-108) mmol/L Carbon Dioxide 27 (22-29) mmol/L Anion Gap 14 (12-20) BUN 12 (9-16) mg/dL Creatinine 0.71 (0.5-1.4) mg/dL Estim Creat Clear Calc 196.4 Estimated GFR > 60 Random Glucose 313 H (60-115) mg/dL Lactic Acid 2.0 (0.5-2.0) mmol/L Calcium 9.2 (8.4-10.2) mg/dL Total Bilirubin 0.3 (0.0-1.0) mg/dL AST 17 (5-37) U/L ALT 51 H (0-40) U/L Alkaline Phosphatase 116 (39-117) U/L C-Reactive Protein 42.69 H (< or = 0.50) mg/dL Total Protein 7.1 (6.5-8.0) g/dL Albumin 4.2 (3.5-5.0) g/dL Independent Interpretation I performed an independent interpretation of an: CT Scan Interpretation: My interpretation is in agreement with the radiologist's impression of this imaging study as written below. EXAMINATION: CT SOFT TISSUE NECK WITH CONTRAST CLINICAL INFORMATION: Follow-up from 08/02/2025, worsening facial/neck cellulitis. COMPARISON: CT neck dated 08/02/2025. TECHNIQUE: Following the intravenous administration of 70 mL of Omnipaque 350 intravenous contrast, helical imaging was performed in the axial plane with generation of coronal and sagittal reformatted images. This CT examination was performed using dose optimization techniques as appropriate, variously including the following: *Automated exposure control *Adjustment of mA and/or kV according to patient size (this includes techniques or standardized protocols for targeted exams where dose is matched to indication/reason for exam; i.e. extremities or head) *Use of iterative reconstruction technique FINDINGS: In the interval from the prior study, there has been significant worsening of overall inflammatory changes throughout the right neck, with involvement of the left neck as well. There is significant enlargement and swelling of the right parotid gland, with thickening of the right platysma muscle, and fatty infiltrative changes and fluid tracking along the right submandibular space into the anterior cervical space, as well as the right blasting gang miner space and right parapharyngeal region/fat plane. There is also thickening of the left platysma and subcutaneous infiltrative changes superficial to the left platysma. There is no deep left neck involvement. In the retropharyngeal space, there is a fluid collection measuring approximately 0.8 x 3.2 x 5.2 cm (AP, TRV, CC). This begins at the mid C2 level, and extends to the level of the cricoid cartilage inferiorly. There is diffuse hyperemia and thickening of the right greater than left palatine tonsil, soft palate, and the hypopharyngeal armstrong, without definite peritonsillar abscess identified. The epiglottis is significantly thickened. There is leftward deviation and moderate effacement of the hypopharyngeal airway. The larynx images normally although the vocal cords are abducted, likely secondary to breath-hold. The subglottic trachea is widely patent. The thyroid gland appears normal. Lymph Nodes: -Enlarged reactive lymph nodes within the neck, right greater than left anterior cervical chains. Carotid Sheath Structures: -Normal. Jugular veins appear patent. Salivary Glands: -Enlargement and inflammation of the right parotid gland, slightly worsened from the prior exam. 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 -Normal-appearing left submandibular gland. Mild reactive thickening of the right submandibular gland. Elastic Yarn Twister Spaces: -As above. Anterior Cervical Space: -As above. Imaged Intracranial Contents: -No mass effect, edema, or abnormal enhancement. Cortical and dural venous sinuses are patent. The skull base is normal. Globes and Orbits: -Normal. Paranasal Sinuses/Mastoids/Tympanic Spaces: -Normally aerated bilaterally. Lung Apices and Superior Mediastinal Structures: -Imaged lung apices are clear and superior mediastinal structures are normal. Bony Structures: -No suspicious bone lesions. No fractures. -TM joints demonstrate mild anterior subluxation on the right. -There is moderate cervical spondylosis present. CT/CT soft tissue neck w IV con IMPRESSION: 1. Extensive inflammation with phlegmonous changes in the right greater than left neck as discussed above, most likely having arose from the right parotid gland, with a new retropharyngeal fluid collection present, without definite peripheral enhancement, measuring approximately 0.8 x 3.2 x 5.2 cm (AP, TRV, CC). This extends from the mid C2 level to the level of the cricoid cartilage. There is no additional formed or drainable abscess present within the neck. 2. There is inflammatory involvement of the right blasting gang miner space and right parapharyngeal space. 3. There is inflammatory thickening of the right greater than left palatine tonsils, soft palate, and to a lesser degree the hypopharyngeal mucosa. There is resultant moderate effacement of the hypopharyngeal airway, with leftward deviation. 4. There is reactive lymphadenopathy within the neck. Electronically signed by: Topher Mccain MD 08/23/2025 03:02 PM [facility] Dictated By: Topher Mccain MD Signed By: Electronically signed by Topher Mccain MD 08/23/25 3091 Radiology Impression Discussion of test interpretation with radiology: I have reviewed the radiologist's reading. Independent Historian Clinical information obtained from an independent historian. History obtained from or confirmed by: Other (patient's son provided additional history and confirmed the history provided by the patient. ) Chronic Conditions Patient?s care impacted by: Diabetes Critical Care Time Critical Care Time Critical Care Time: Yes Total Critical Care Time: 74 Attestation: I spent 74 minutes of Critical Care Time with this patient. This does not include time spent on separately reported billable procedures. Discharge Plan Discharge Clinical Impression: Abscess, retropharyngeal Patient Disposition: [facility] Transfer Details: [facility] accepted by Dr. Ortega Prescriptions: No Action quetiapine 25 mg Tablet 25 mg PO QAM quetiapine 25 mg Tablet 12.5 mg PO BEDTIME bupropion HCl [Wellbutrin SR] 150 mg Tablet Sustained-Release 12 Hr 150 mg PO BID acetaminophen 650 mg Tablet 650 mg PO Q4H PRN (Reason: Pain) oxycodone-acetaminophen 5-325 mg Tablet 2 tab PO BID PRN (Reason: Pain) dicyclomine 20 mg Tablet 20 mg PO BID metoprolol tartrate 50 mg Tablet 50 mg PO BID gabapentin 300 mg Capsule 300 mg PO BID loratadine 10 mg Tablet 10 mg PO DAILY fluoxetine 60 mg Tablet 60 mg PO DAILY losartan 50 mg Tablet 50 mg PO DAILY omeprazole 40 mg Capsule,Delayed Release(Dr/Ec) 40 mg PO DAILY sildenafil 100 mg Tablet 100 mg PO DAILY PRN (Reason: Sexual Activity) Rx Instructions: administer 30 minutes to 4 hours before activity psyllium Powder 2 tsp PO BID Rx Instructions: mix into at least 4 oz water or juice before administering terazosin 2 mg Capsule 4 mg PO DAILY multivitamin with minerals Tablet 1 tab PO DAILY rosuvastatin 40 mg Tablet 40 mg PO DAILY insulin glargine 100 unit/mL Cartridge 45 unit SUBCUT DAILY omega-3 fatty acids 500 mg Capsule 1,000 mg PO DAILY insulin aspart (niacinamide) 100 unit/mL Solution 1 - 4 sliding scale dose SUBCUT TIDAC cyclobenzaprine 10 mg Tablet 10 mg PO DAILY PRN (Reason: Muscle Spasm) oxybutynin chloride 15 mg Tablet Extended Release 24hr 15 mg PO DAILY meloxicam 15 mg Tablet 15 mg PO DAILY cyanocobalamin (vitamin B-12) 500 mcg Tablet 2,000 mcg PO DAILY tamsulosin 0.4 mg Capsule 0.8 mg PO BEDTIME amlodipine 2.5 mg Tablet 2.5 mg PO DAILY Qty: 30 0RF Protocol: Hold for SBP< HOLD for SBP < : 90 carvedilol 12.5 mg Tablet 12.5 mg PO BID Qty: 60 0RF Protocol: Hold for SBP/HR < HOLD for SBP < : 90 HOLD for HR < : 60 furosemide [Lasix] 40 mg tablet 40 mg PO DAILY Qty: 30 0RF cefuroxime axetil 250 mg tablet 250 mg PO Q12H Qty: 14 0RF triamcinolone acetonide [Nasacort] 55 mcg aerosol,spray 1 spray intranasal DAILY 7 Days Qty: 16.9 0RF Rx Instructions: administer into each nostril amoxicillin-pot clavulanate 875-125 mg tablet 1 tab PO Q12H 10 Days Qty: 20 0RF dexamethasone 6 mg tablet 6 mg PO DAILY 7 Days Qty: 7 0RF amoxicillin-pot clavulanate 875-125 mg tablet 1 tab PO Q12H 10 Days Qty: 20 0RF Print Language: Unable To Collect
[2025-08-23 12:51] LABS: Hematocrit 34.6 % (42.0-52.0); Hemoglobin 11.9 g/dl (14.0-18.0); Imm Gran Abs Auto 0.19 X10*3/uL (0.00-0.03); Imm Gran Pct Auto 1.0 % (0.0-0.4); Lymphocytes Absolute Auto 0.7 X10*3/uL (1.2-4.9); MANUAL DIFF FLAG SCAN; Mean Corpuscular HGB Conc 34.4 g/dl (31.0-36.0); Mean Corpuscular Hemoglobin 29.4 pg (27.0-33.0); Mean Corpuscular Volume 85.4 fL (80.0-98.0); NRBC Abs Auto 0.000 X10*3/uL (0.0-0.012); NRBC Pct Auto 0.0 /100WBC (0.0-0.2); Platelet Count 197 X10*3/uL (160-400); Red Blood Count 4.05 X10*6/uL (4.60-5.80); SCAN SMEAR FLAG 1; White Blood Count 18.6 X10*3/uL (4.8-10.8)
[2025-08-23 13:09] LABS: Alanine Aminotransferase 51 U/L (0-40); Albumin Level 4.2 g/dL (3.5-5.0); Alkaline Phosphatase 116 U/L (39-117); Anion Gap 14 (12-20); Aspartate Amino Transferase 17 U/L (5-37); Blood Urea Nitrogen 12 mg/dL (9-16); Calcium 9.2 mg/dL (8.4-10.2); Carbon Dioxide 27 mmol/L (22-29); Chloride 100 mmol/L (96-108); Creatinine Clr Calc Pharmacy 196.4; Estimated Glomerular Filt Rate > 60; Potassium 4.1 mmol/L (3.3-5.1); Sodium 137 mmol/L (135-145); Total Protein 7.1 g/dL (6.5-8.0)
[2025-08-23] MEDS: diazePAM 10 MG/2 ML CARTRIDGE 5 MG IVPUSH (13:13)
[2025-08-23 13:36] LABS: Erythrocyte Sedimentation Rate 104 MM/HR (0-15)
[2025-08-23 14:04] VITALS: BP 138/55; PULSE 83; RESP 18; TEMP 37.5; O2SAT 93
[2025-08-23] MEDS: vancomycin/NS 2,000 MG/500 ML PLAST..BAG 250 MG IV (14:45)
--- OUTSIDE RECORDS SUMMARY | 2025-08-23 14:55 | XMS_ITS | Encounter Summary ---
Author Organization [facility] Address [address] [place] [address] Care Team Providers Care Systems Analyst Developer Name Role Phone Pcp, No Primary Care Provider Unavailabl e Encounter Details Date Type Department Care Team (Late st Contact Info) Description 08/23/2025 2:55 PM EST Ancillary Procedure [facility] Radiology [address] [place] [address] Provider, File Room Arrived Social History Tobacco Use Types Packs/Day Years Used Date Smoking Tobacco: Never Assessed Sex and Gender Information Value Date Recorded Sex Assigned at Not on file Legal Sex Male 9:24 AM EST Gender Identity Not on file Sexual Orientation Not on file documented as of this encounter Plan of Treatment Not on file documented as of this encounter Procedures Procedure Name Priority Date/Time Associated Diagnosis Comments CT HEAD ARCHIVE FOR REFERENCE ONLY Routine 08/23/2025 2:50 PM EST documented in this encounter Results * CT Head Archive for Reference Only (08/23/2025 2:50 PM EST) Narrative KIERSTEN - 08/23/2025 2:50 PM EST This study has been auto finalized and does not contain a result. us File Room Provider IMG DIGITIZE FILMS Final Resu lt KIERSTEN [phone] documented in this encounter Visit Diagnoses Not on filedocumented in this encounter Care Teams Systems Analyst Developer Relationship Specialty Start Date End Date Pcp, No PCP - General General Medicine 08/08/22 documented as of this encounter
--- OUTSIDE RECORDS SUMMARY | 2025-08-23 15:14 | XMS_ITS | Encounter Summary ---
Author Organization [facility] Address [address] [place] [address] Phone Care Team Providers Care Advertising Solicitor Name Role Phone Holden Koo NP Primary [...] CHG MRI, LUMBAR SPINE COMBO Fatou Heard, RUG RENOVATOR [address] [place] [address] Phone: tel: fax: Referral ID Status Reason Start Date Expiration Date Visits Re quested Visits Authorized [id number] Closed 07/11/2022 09/26/2022 1 1 Encounter Details Date Type Department Care Team (Latest Contact Info) Description 07/11/2022 Transcribe Orders Virtual Department [address] [place] [address] Fatou Heard, RUG RENOVATOR [address] [place] [address] Low back pain, unspecified back pain laterality, [...] Primary documented in this encounter Care Teams Advertising Solicitor Relationship Specialty Start Date End Date Holden Koo NP [address] [place] [address] PCP - General Family Medicine 09/11/21 02/03/23 Holden Shin PA [address] [place] [address] PCP - General 02/04/23 documented as of this encounter Additional Source Comments The information contained in this document represents components of the legal health record. It is not the complete legal health record.[facility]
--- OUTSIDE RECORDS SUMMARY | 2025-08-23 15:14 | XMS_ITS | Clinical Summary ---
Author Organization [facility] Address [address] [place] [address] Phone Care Team Providers Care Bulk Plant Operator Name Role Phone Holden Shin Primary Care Provid er Allergies Active Allergy Reactions Criticality Noted Date Comments Aspirin 12/29/2008 Other reaction(s): Bleeding Atorvastatin Hives,Rash Low 08/17/2006 Empagliflozin Rash Low 06/07/2021 Fenofibrate Diarrhea,Nausea Only 04/12/2008 Other reaction(s): Diarrhea, Nausea, Cramp Lisinopril 09/18/2006 Other reaction(s): Fatigue Niaspan Starter Pack 07/21/2016 [place] 09/11/2021 Medications cyclobenzaprine (FLEXERIL) 10 MG tablet [...] file Insurance MEDICARE PART A & B [facility] MEDICARE PART A & B Member Subscriber Plan / Payer (Ef fective 2005-) Name:Jermaine Castillo Member ID:[id number] Relation to Subscriber:Self Name:Jermaine Castillo Subscriber ID:[id number] Payer ID:[id number] Group ID:Not on file Type:Medicare Address: [employer] [address] MEDICARE PART A & B Member Subscriber Plan / Payer (Ef fective 2005-) Name:Jermaine Castillo Member ID:[id number] Relation to Subscriber:Self Name:Jermaine Castillo Subscriber ID:[id number] Payer ID:[id number] Group ID:Not on file Type:Medicare Address: [employer] [address] [facility] MEDICARE PART A & B Member Subscriber Plan / Payer (Ef fective 2005-Present) Name:Jermaine Castillo Member ID:[id number] Relation to Subscriber:Self Name:Jermaine Castillo Subscriber ID:[id number] Payer ID:[id number] Group ID:Not on file Type:Medicare Address: [employer] [address] MEDICARE PART A & B MEDICARE PART A & B Member Subscriber Plan / Payer (Ef fective 2005-Present) Name:Jermaine Castillo Member ID:[id number] Relation to Subscriber:Self Name:Jermaine Castillo Subscriber ID:[id number] Payer ID:[id number] Group ID:Not on file Type:Medicare Address: [employer] [address] MEDICARE PART A & B Member Subscriber Plan / Payer (Ef fective 2005-) Name:Jermaine Castillo Member ID:[id number] Relation to Subscriber:Self Name:Jermaine Castillo Subscriber ID:[id number] Payer ID:[id number] Group ID:Not on file Type:Medicare Address: [employer] [address] MEDICARE PART A & B MEDICARE PART A & B Care Teams Bulk Plant Operator Relationship Specialty Start Date End Date Holden Shin PA PCP - General 02/04/23 Additional Source Comments The information contained in this document represents components of the legal health record. It is not the complete legal health record.[facility]
--- OUTSIDE RECORDS SUMMARY | 2025-08-23 15:14 | XMS_ITS | Encounter Summary ---
Author Organization [facility] Address [address] [place] [address] Phone Care Team Providers Care Thermostat Mechanic Name Role Phone Holden Koo NP Primary Care Provide r Holden Shin Primary Care Provid er Encounter Details Date Type Department Care Team (Late st Contact Info) Description 09/12/2021 Procedure Pass [facility], Ct Scan - [address] [address] Social History Tobacco Use Types Packs/Day Years [...] on filedocumented in this encounter Care Teams Thermostat Mechanic Relationship Specialty Start Date End Date Holden Koo NP [address] [place] [address] PCP - General Family Medicine 09/11/21 02/03/23 Holden Shin PA [address] [place] [address] PCP - General 02/04/23 documented as of this encounter Additional Source Comments The information contained in this document represents components of the legal health record. It is not the complete legal health record.[facility]
--- OUTSIDE RECORDS SUMMARY | 2025-08-23 15:14 | XMS_ITS | Encounter Summary ---
Author Organization [facility] Address [address] [place] [address] Phone Care Team Providers Care Medicaid Biller Name Role Phone Holden Koo NP Primary Care Provide r Holden Shin Primary Care Provid er Encounter Details Date Type Department Care Team (Late st Contact Info) Description 11/20/2022 Procedure Pass [facility], Ct Scan - [address] [address] Social History Tobacco Use Types Packs/Day Years [...] 11/20/2022 1:06 AM Cass Celeste RN * [place] Suicide Severity Rating Scale (Screener/Recent Self-Report) Question [...] on filedocumented in this encounter Care Teams Medicaid Biller Relationship Specialty Start Date End Date Holden Koo NP [address] [place] [address] PCP - General Family Medicine 09/11/21 02/03/23 Holden Shin PA [address] [place] [address] PCP - General 02/04/23 documented as of this encounter Additional Source Comments The information contained in this document represents components of the legal health record. It is not the complete legal health record.[facility]
--- OUTSIDE RECORDS SUMMARY | 2025-08-23 15:14 | XMS_ITS | Clinical Summary ---
Author Organization [facility] Address [address] [place] [address] Care Team Providers Care Pari Mutuel Clerk Name Role Phone Pcp, No Primary Care Provider Unavailabl e Encounters Date Type Department Care Team Description 08/23/2025 2:55 PM EST Ancillary Procedure [facility] Radiology [address] [place] [address] Provider, File Room Arrived from Last 3 Months Social History Tobacco Use Types Packs/Day Years [...] Influenza Vaccine 04/28/2025 COVID-19 Vaccine ( - season) 2025 Procedures Procedure Name Priority Date/Time Associated Diagnosis Comments CT HEAD ARCHIVE FOR REFERENCE ONLY Routine 08/23/2025 2:50 PM EST from Last 3 Months Results * CT Head Archive for Reference Only (08/23/2025 2:50 PM EST) Winter BURCH - 08/23/2025 2:50 PM EST This study has been auto finalized and does not contain a result. us File Room Provider IMG DIGITIZE FILMS Final Resu lt KIERSTEN [phone] from Last 3 Months Insurance [facility] Care Teams Pari Mutuel Clerk Relationship Specialty Start Date End Date Pcp, No PCP - General General Medicine 08/08/22
--- OUTSIDE RECORDS SUMMARY | 2025-08-23 15:14 | XMS_ITS | Encounter Summary ---
Author Organization [facility] Address [address] [place] [address] Phone Care Team Providers Care Quality Assurance Qa Lab Analyst Name Role Phone Holden Koo NP Primary Care Provide r Holden Sihn Primary Care Provid er Encounter Details Date Type Department Care Team (Late st Contact Info) Description 01/30/2022 Documentation [facility] Rad Onc [address] [place] [address] Shania Sanchez MA [address] [place] [address] [email or web address] Social History Tobacco Use Types Packs/Day Years [...] on filedocumented in this encounter Care Teams Quality Assurance Qa Lab Analyst Relationship Specialty Start Date End Date Holden Koo NP [address] [place] [address] PCP - General Family Medicine 09/11/21 02/03/23 Holden Shin PA [address] [place] [address] PCP - General 02/04/23 documented as of this encounter Additional Source Comments The information contained in this document represents components of the legal health record. It is not the complete legal health record.[facility]
[2025-08-23 15:23] VITALS: RESP 22
== END 2025-08-23 16:21 | disposition short-term general hospital (02) ==
PROVIDERS: Physician Assistant Medical; Emergency Provider Emergency Medicine; PCP Nurse Practitioner Family
DX: J39.0 Retropharyngeal and parapharyngeal abscess (principal); E11.9 Type 2 diabetes mellitus without complications; I10 Essential (primary) hypertension; Z88.6 Allergy status to analgesic agent; Z88.8 Allergy status to other drugs, medicaments and biological substances; Z91.018 Allergy to other foods
CPT/HCPCS: 36415; 70491; 80053; 83605; 85025; 85652; 86140; 87040; 96365; 96366; 96367; 96375; 99284; 99285; J1100; J2270; J2543; J3360; J3373

== ENCOUNTER → 2025-08-23 12:20 | Outpatient (BNV) | payer OTHER, SELFPAY | PROVIDERS: PCP Nurse Practitioner Family; Visit Provider Radiology Diagnostic Radiology | DX: J03.90 Acute tonsillitis, unspecified (principal); J39.0 Retropharyngeal and parapharyngeal abscess; R59.0 Localized enlarged lymph nodes | CPT/HCPCS: 70491 ==